=== PATIENT | female | born 1985 | race Caucasian/White ===

== ENCOUNTER 2021-03-09 10:04 | Emergency (ER) | payer BC ==
[2021-03-09 10:10] VITALS: TEMP 98.7
[2021-03-09] MEDS ORDERED: KETOROLAC 15 MG/ML 1 ML VIAL IM STA (10:26)
--- NOTE | 2021-03-09 10:28 | ED ---
Lower Extremity Injury HPI - General Chief Complaint: Extremity Injury, Lower Stated Complaint: lt knee injury Time Seen by Provider: 03/09/21 10:16 Source: patient Mode of arrival: ambulatory Limitations: no limitations - History of Present Illness Initial Comments: 15-year-old female presents to emergency Department with a chief complaint of any pain. Patient reports she does have history of bilateral knee arthritis and meniscal injury to right knee. However, yesterday she was walking she felt sudden onset of a "pop" followed by pain in the left knee. States mostly the pain is located in the left infrapatellar region without any associated paresthesias. States she has full range of motion in the knee, any movement seems to be exacerbated in the pain along with weightbearing. States the pain is sharp 04/09. - Related Data Allergies Allergy/AdvReac Type Severity Reaction Status Date / Time No Known Allergies Allergy Verified 03/09/21 10:07 Review of Systems ROS Statement: Those systems with pertinent positive or pertinent negative responses have been documented in the HPI. ROS Other: All systems not noted in ROS Statement are negative. Past Medical History Past Medical History: No Reported History History of Any Multi-Drug Resistant Organisms: None Reported Past Surgical History: Cholecystectomy Additional Past Surgical History / Comment(s): right knee Past Psychological History: No Psychological Hx Reported Smoking Status: Never smoker Past Alcohol Use History: None Reported Past Drug Use History: None Reported General Exam Limitations: no limitations General appearance: alert, in no apparent distress, obese Head exam: Present: atraumatic, normocephalic, normal inspection Eye exam: Present: normal appearance, PERRL, EOMI Pupils: Present: normal accommodation ENT exam: Present: normal exam, normal oropharynx, mucous membranes moist. Absent: TM's normal bilaterally Neck exam: Present: normal inspection, full ROM Respiratory exam: Present: normal lung sounds bilaterally. Absent: respiratory distress Cardiovascular Exam: Present: regular rate, normal rhythm, normal heart sounds. Absent: systolic murmur Extremities exam: Present: normal inspection, tenderness (Left infrapatellar tenderness), normal capillary refill, other (Palpable DP and PT bilaterally. Sensation intact in the left lower extremity.). Absent: full ROM (I range of motion with full flexion), pedal edema, joint swelling, calf tenderness Back exam: Present: normal inspection, full ROM. Absent: tenderness Neurological exam: Present: alert, oriented X3 Psychiatric exam: Present: normal affect, normal mood Skin exam: Present: warm, dry, intact, normal color Course Vital Signs 03/09/21 10:07 Temperature 98.7 F Pulse Rate 87 Respiratory 16 Rate Blood Pressure 129/82 O2 Sat by Pulse 96 Oximetry Medical Decision Making - Medical Decision Making 15-year-old female presents to emergency Department with a chief complaint of an y pain. On physical examination, patient is neurovascularly intact. Infrapatellar tenderness. X-ray shows a small effusion with spurring noted. A knee immobilizer will be applied. Toradol for the pain. I suspect ligamentous injury. Patient will be advised to follow with mechanical technical service specialist. Case discussed with Dr. Poole. Disposition Clinical Impression: Left knee pain, Swelling of left knee joint Disposition: HOME SELF-CARE Condition: Stable Instructions (If sedation given, give patient instructions): Knee Pain (ED) Additional Instructions: Follow with mechanical technical service specialist. Return to emergency department if symptoms worsen. Is patient prescribed a controlled substance at d/c from ED?: No Referrals: Michael Patton MD [Primary Care Provider] - 1-2 days Jono Noguera DO [Doctor of Osteopathic Medicine] - 1-2 days Time of Disposition: 11:08
--- NOTE | 2021-03-09 10:55 | XR ---
EXAMINATION TYPE: XR knee complete LT DATE OF EXAM: 03/09/2021 COMPARISON: NONE HISTORY: 35-year-old female felt knee pop while walking yesterday TECHNIQUE: 3 radiographs of the left knee FINDINGS AND IMPRESSION: No acute osseous or articular abnormality. Small knee joint effusion. Marginal bony spurs lateral femoral condyle.
[2021-03-09] MEDS ORDERED: ACET/COD 300 MG/30 MG STARTER PACK 6 TAB BTL PO STA (11:18)
[2021-03-09 11:50] VITALS: BP 142/85; PULSE 75; RESP 18
== END 2021-03-09 11:53 | disposition home or self-care (01) ==
LOC: SUPCPDRO 10:04 → EC 10:04
DX: M25.462 Effusion, left knee (principal)
CPT/HCPCS: 73562; 99283; 96372; J1885

== ENCOUNTER → 2021-03-09 | Outpatient (CLI) | payer BC | END | disposition home or self-care (01) | DX: M17.11 Unilateral primary osteoarthritis, right knee (principal) ==

== ENCOUNTER → 2021-09-18 | Outpatient (CLI) | payer BC ==
[2021-09-18 11:41] VITALS: BMI 48.7
== END ==
LOC: DBWHC3 10:59
PROVIDERS: ATTEND Internal Medicine
DX: Z71.3 Dietary counseling and surveillance (principal); G89.29 Other chronic pain; M17.11 Unilateral primary osteoarthritis, right knee; F90.2 Attention-deficit hyperactivity disorder, combined type; F32.A Depression, unspecified; Z68.42 Body mass index [BMI] 45.0-49.9, adult
CPT/HCPCS: 97802

== ENCOUNTER 2021-10-17 12:48 | Emergency (ER) | payer BC ==
--- NOTE | 2021-10-17 12:57 | ED ---
General Adult HPI - General Stated complaint: fall, left ankle pain Time Seen by Provider: 10/17/21 12:51 Source: patient, EMS, RN notes reviewed, old records reviewed Mode of arrival: EMS Limitations: no limitations - History of Present Illness Initial comments: 36-year-old female presents for evaluation of left ankle injury and possible left knee injury. Patient was attending her back porch, slipped on the ice and fell injuring her left ankle and left knee. No head or neck injury. No anticoagulation. Patient was transported by paramedics, given fentanyl during transport. - Related Data Home Medications Medication Instructions Recorded Confirmed Celecoxib [CeleBREX] 100 mg PO BID PRN 10/17/21 10/17/21 Dextroamphetamine/Amphetamine 10 mg PO DAILY 10/17/21 10/17/21 [Adderall Xr] Saxenda 18mg/3ml 0.6 mg SQ DAILY 10/17/21 10/17/21 Previous Rx's Medication Instructions Recorded Ibuprofen [Motrin] 600 mg PO Q8HR PRN #24 tab 10/17/21 Allergies Allergy/AdvReac Type Severity Reaction Status Date / Time No Known Allergies Allergy Verified 10/17/21 14:11 Review of Systems ROS Statement: Those systems with pertinent positive or pertinent negative responses have been documented in the HPI. ROS Other: All systems not noted in ROS Statement are negative. Past Medical History Past Medical History: Osteoarthritis (OA) History of Any Multi-Drug Resistant Organisms: None Reported Past Surgical History: Cholecystectomy, Orthopedic Surgery Additional Past Surgical History / Comment(s): right knee Past Psychological History: ADD/ADHD Smoking Status: Never smoker Past Alcohol Use History: Occasional Past Drug Use History: None Reported General Exam Limitations: physical limitation General appearance: alert, in no apparent distress Head exam: Present: atraumatic, normocephalic Eye exam: Present: normal appearance, PERRL ENT exam: Present: normal exam Neck exam: Present: normal inspection. Absent: tenderness, meningismus Respiratory exam: Present: normal lung sounds bilaterally. Absent: respiratory distress, wheezes Cardiovascular Exam: Present: regular rate, normal rhythm GI/Abdominal exam: Present: soft. Absent: distended, tenderness, guarding Extremities exam: Present: joint swelling (Ankle swelling, splint applied by paramedics prehospital. Distal pulses intact, normal sensation. No gross deformity) Neurological exam: Present: alert, oriented X3 Psychiatric exam: Present: normal affect, normal mood Skin exam: Present: warm, dry, intact. Absent: cyanosis, diaphoretic Course Vital Signs 10/17/21 10/17/21 12:50 13:49 Temperature 97.7 F Pulse Rate 80 79 Respiratory 18 16 Rate Blood Pressure 166/100 152/78 O2 Sat by Pulse 99 99 Oximetry Procedures - Orthopedic Splinting/Casting Injury #1 Side: left Lower Extremity Injury Location: ankle Lower Extremity Immobilizer: stirrup splint Other Orthopedic Equipment: crutches Medical Decision Making - Medical Decision Making X-rays performed of the left knee and left ankle status post fall. There is no acute bony abdomen, no displaced fracture seen. I do suspect a ligamentous injury in the ankle. Patient is placed in a splint and given orthopedic follow- up. Disposition Clinical Impression: Ankle sprain Disposition: HOME SELF-CARE Condition: Fair Instructions (If sedation given, give patient instructions): Ankle Sprain (ED) Prescriptions: Ibuprofen [Motrin] 600 mg PO Q8HR PRN #24 tab PRN Reason: Pain Is patient prescribed a controlled substance at d/c from ED?: No Referrals: Michael Patton MD [Primary Care Provider] - 1-2 days Julio César Davila MD [Medical Doctor] - 1-2 days Time of Disposition: 14:56
--- NOTE | 2021-10-17 13:31 | XR ---
EXAMINATION TYPE: XR knee complete 3 views LT, XR ankle complete 3 views LT DATE OF EXAM: 10/17/2021 COMPARISON: 03/09/2021 knee HISTORY: 36-year-old female with pain after slip and fall FINDINGS: Left knee: There is tricompartmental degenerative spurring. Trace knee joint effusion in the suprapatellar pouch . Extensor mechanism appears intact. No acute fracture, subluxation, or dislocation seen. Left ankle: There is loss of the distal tibiofibular overlap. Anterior soft tissue swelling suggested. Limited du e to external artifacts from crosstable positioning. No acute fracture otherwise identified. IMPRESSION: 1. Left knee: At least mild tricompartmental osteoarthrosis. Trace knee joint effusion is nonspecific and probably reactive. No acute osseous abnormality seen. 2. Left ankle: Limited by crosstable technique and external artifacts. However, there is loss of the distal tibiofibular overlap suggesting syndesmotic injury/high ankle sprain. No acute fracture seen. If there is medial pain as well, consider a medial stress view to exclude any widening of the medial clear space and injury to the deltoid ligament.
[2021-10-17 15:24] VITALS: BP 152/84; PULSE 80; RESP 18; TEMP 97.8
== END 2021-10-17 15:23 | disposition home or self-care (01) ==
LOC: EC 12:48
DX: S93.402A Sprain of unspecified ligament of left ankle, initial encounter (principal); M19.90 Unspecified osteoarthritis, unspecified site; F90.9 Attention-deficit hyperactivity disorder, unspecified type; Z90.49 Acquired absence of other specified parts of digestive tract; W00.0XXA Fall on same level due to ice and snow, initial encounter
CPT/HCPCS: 29515; 99283

== ENCOUNTER 2021-11-22 12:13 | Day surgery (SDC) | payer BC ==
[2021-11-19 15:51] VITALS: BMI 41.3
[~2021-11-22 12:13] MED LIST: DEXAMETHASONE SOD PHOSPHATE 4 MG/ML 1 ML VIAL IV ONE; LACTATED RINGERS 1,000 ML IV SCH; LIDOCAINE 1% (10MG/ML) FOR IV START INTRADERMA PRN; MIDAZOLAM 2 MG/2 ML VIAL IV PRN; ONDANSETRON 4 MG/2 ML VIAL IVP ONE; Pre Op ABX Message 1 EACH MISC MISCELLANE ONE
[2021-11-22] MEDS ORDERED: MIDAZOLAM 2 MG/2 ML VIAL IVP ONE (13:34)
[2021-11-22] MEDS ORDERED: fentaNYL (PF) 50 MCG/ML 2 ML AMP IVP ONE (13:34)
--- NOTE | 2021-11-22 14:07 | P.ANPRN ---
Procedure Note - Anesthesia - Nerve Block Performed Left Adductor Canal Single Time Out Performed: Yes (1333) Date of Procedure: 11/22/21 Procedure Start Time: 13:33 Procedure Stop Time: 13:41 Location of Patient: PreOp Indication: Acute Post-Operative Pain, Analgesia, Dx/Pain Location (Left ankle), Requested by Surgeon Specifically requested for management of pain by DrWil: Derrick Long Sedation Type: Sedate with meaningful contact maintained Preparation: Sterile Prep Position: Supine Catheter: None Needle Types: Pajunk Needle Gauge: 21 (100 mm) Ultrasound used to visualize needle placement: Yes Ultrasound used to observe medication spread: Yes Injectate: 0.5% Ropivacaine (see comment for volume) (20 cc + 2mg of decadron) Blood Aspirated: No Pain Paresthesia on Injection Noted: No Resistance on Injection: Normal Image Stored and Saved: Yes Events: Uneventful and Well Tolerated Left Popliteal Single Time Out Performed: Yes Date of Procedure: 11/22/21 Procedure Start Time: 13:42 Procedure Stop Time: 13:51 Location of Patient: PreOp Indication: Requested by Surgeon Specifically requested for management of pain by DrWil: Derrick Long Sedation Type: Sedate with meaningful contact maintained Preparation: Sterile Prep Position: Right Lateral Catheter: None Needle Types: Pajunk Needle Gauge: 21 (100 mm) Ultrasound used to visualize needle placement: Yes Ultrasound used to observe medication spread: Yes Injectate: 0.5% Ropivacaine (see comment for volume) (20cc + decadron 2 mg) Blood Aspirated: No Pain Paresthesia on Injection Noted: No Resistance on Injection: Normal Image Stored and Saved: Yes Events: Uneventful and Well Tolerated
[2021-11-22] MEDS ORDERED: PROPOFOL 10 MG/ML 20 ML VIAL IV ONE (14:30)
[2021-11-22] MEDS ORDERED: DEXAMETHASONE SOD PHOSPHATE 4 MG/ML 1 ML VIAL ONE (14:30)
[2021-11-22] MEDS ORDERED: fentaNYL (PF) 50 MCG/ML 2 ML AMP ONE (14:30)
[2021-11-22] MEDS ORDERED: ROPIVACAINE 5 MG/ML 30 ML VIAL ONE (14:30)
[2021-11-22] MEDS ORDERED: LIDOCAINE 1% INJ 10MG/ML (20 ML MDV) ONE (14:30)
[2021-11-22] MEDS ORDERED: SUCCINYLCHOLINE CHLORIDE VIAL 200 MG/10 ML VIAL IV ONE (14:30)
[2021-11-22] MEDS ORDERED: SODIUM CHLORIDE 0.9% 100 ML with ceFAZolin 3,000 MG IV ONE ×2 (14:34)
[2021-11-22 16:27] VITALS: TEMP 97.4
[2021-11-22] MEDS: HYDROmorphone 0.5 MG/0.5 ML SYRINGE IVP PRN ×3 (16:29→17:03)
[2021-11-22] MEDS ORDERED: ONDANSETRON 4 MG/2 ML VIAL IVP ONE (16:33)
--- NOTE | 2021-11-22 16:38 | P.OP ---
Date of Procedure: 11/22/21 Preoperative Diagnosis: 1. Sprain of anterior talofibular ligament left ankle 2. Ruptured syndesmosis left ankle Postoperative Diagnosis: 1. Same 2. Same Procedure(s) Performed: 1. Secondary repair of left lateral ankle ligaments 2. Open repair syndesmosis left ankle Implants: Arthrex internal brace 2 Arthrex fiber Kenny anchors 2 Arthrex tight rope anchor 2 Arthrex 2 hole titanium plate Anesthesia: GETA Surgeon: Derrick oLng Estimated Blood Loss (ml): 10 Pathology: none sent Condition: stable Disposition: PACU Description of Procedure: Prior to the patient being brought to the operating room, anesthesia administered a nerve block on the affected extremity, utilizing ultrasonic guidance and mild sedation. Once completed the patient was taken to the operating room and placed on table supine position. Timeout was taken to confirm correct patient identifiers, correct procedure, and correct site of surgery. When all staff in the room were in agreement with the timeout, the patient was induced and placed under general anesthesia. A bump was placed underneath the hip to internally rotate the affected leg. A well-padded tourniquet was placed on the midcalf and then the affected extremity prepped and draped in usual manner. The leg was exsanguinated and the tourniquet inflated to 250 mmHg. Attention was directed over the lateral ankle where a curved incision was made just anterior to the lateral malleolus. The incision was deepened down to the subcutaneous tissue careful to identify, avoid, and retract any neurovascular structures and cauterize any bleeding vessels. Blunt dissection was continued down to level of the lateral ankle joint capsule and ligamentous structures. The soft tissue structures were sharply incised off the anterior surface the lateral malleolus and reflected anteriorly. A ronguer was used to remove the cortical bone off the anterior surface the lateral malleolus which would help facilitate tissue re-adhesion upon repair. With the ankle at 90 and in neutral inversion and eversion, the capsule was palpated on the lateral surface of the talus anterior to the articular surface. A small stab incision was made in the area of the talar body avoiding both the ankle and subtalar joints and near the junction of the neck. A drill hole was then placed utilizing a 3.4 mm drill bit into the talar body avoiding both the ankle and subtalar joints. The hole was then tapped and then the 4.75 mm swivel lock anchor was inserted and impacted and then advanced to proper depth. The same drill bit was used to create the hole for the 3.5 mm anchor in the lateral malleolus. Drill holes for the Arthrex fiber Clem anchors were made one inferior and one superior to the 3.4 mm drill hole in the lateral malleolus. With the drill guides for the anchor still in place, the anchors were inserted into the lateral malleolus and impacted to proper depth. The kelly machine operator and guide were removed and then tension placed on the suture to lock anchors in place. Once both anchors were in place the wound was thoroughly irrigated with antibiotic saline. The suture on the fiber Kenny anchors was then used to capture the distal ligamentous and capsular structures on the talus and then with the ankle in maximum dorsiflexion and eversion, the suture was tied repairing the ligament. The 2 arms of the internal brace suture were then passed through the 3.5 mm anchor which was then aligned with the drill hole lateral malleolus. Utilizing described tensioning techniques, the anchor and suture were inserted into the drill hole and then the anchor advanced to lock the suture in place. At that time the ankle was tested for stability where anterior drawer and inversion stress were both negative. The wound was again irrigated with antibiotic saline. The fiber Kenny suture was used to sew the retinaculum over the lateral malleolus along with the periosteal flap in a pants over vest fashion. Then attention was directed more proximal along the fibula for the repair of the anterior inferior tibial-fibular ligament as well as placement of the tight rope anchors for the syndesmotic injury. Blunt subcutaneous dissection was done to expose the anterior surface of the tibia for the placement of the anchor. Under fluoroscopic visualization a location for the anchor placement was marked and then the drill hole made in the tibia. The hole was tapped and the 4.75 anchor with associated suture was inserted into the drill hole to the appropriate depth. Then a metallic marker was used to kieran the area where the 3.5 mm anchor was to be inserted in the lateral malleolus. Once the appropriate position was found the drill hole was made for the anchor. Utilizing appropriate tensioning techniques and having the ankle at 90 the suture on the 4.75 anchor was fed through the 3.5 anchor and then placed in the drill hole in the lateral malleolus. The anchor was advanced locking the suture in place. Slightly proximal to that area and on the lateral malleolus and incision was made through the soft tissue to expose the lateral malleolus. A 2 hole plate was then placed on the lateral surface of the malleolus and there was adjusted for positioning under fluoroscopy. Once position was acceptable the proximal hole the plate was then Fixated with a threaded olive wire. Then a drill hole was made for the tight rope anchor from lateral to medial and slight posterior angulation confirmed under fluoroscopy. The tight rope anchor was inserted until the button was clear of the medial cortex of the tibia. The button was then deployed and then the repeat kelly machine operator retracted. Then with the ankle in 90 dorsiflexion the lateral button was then tied down to the plate as tight as possible. The temporary fixation was removed and then another drill hole for second tight rope was made from lateral to medial only this time with slight anterior angulation to create a divergent triangle of tight ropes. Once the drill holes completed the tight rope kelly machine operator was placed until the button was clear of the heel tibia. The button was deployed and then laid flat against the medial side of the tibia. The kelly machine operator was removed and then the suture tightened until the lateral button contacted the plate and was tight. Again while doing this the ankle was held at 90 dorsiflexion. Under live fluoroscopy the ankle was stressed and there was no abnormal gapping of the syndesmosis or widening of the medial joint gutter. The wound is thoroughly irrigated with antibiotic saline. Subcutaneous closure was done with 4-0 Monocryl. Skin closure done with stainless adrien. X jumpstart dressing was placed over the incision and covered with a bulky dry dressing. The tourniquet was released and capillary refill return to all digits on the left foot. The patient was then placed in a well-padded, well molded Mi posterior mold/sugar tong splint. Ankle was held in neutral position until the splint was dried. Patient tolerated above procedure and anesthesia well and left operating room to recovery with vital signs stable
--- NOTE | 2021-11-22 16:48 | XR ---
EXAMINATION TYPE: XR ankle limited LT DATE OF EXAM: 11/22/2021 4:23 PM INDICATION: Patient age:Female; 36 years old; Reason for study: Secondary Repair Lateral Ankle Ligaments; [facility]. COMPARISON: None Intraoperative fluoroscopic services were provided for left ankle. Total fluoroscopy time is 41.1 sec onds with a total of 1 submitted images to PACS. Please see the operative note for further details.
[2021-11-22 17:03] VITALS: RESP 16
[2021-11-22 18:23] VITALS: BP 128/79; PULSE 85
--- NOTE | 2021-11-24 20:34 | FL ---
Fluoroscopy INDICATION: Pain FINDINGS: Fluoroscopy time: 41 seconds. Images obtained: 0. IMPRESSIONS: 1. Documentation of fluoroscopy.
== END 2021-11-22 18:29 | disposition home or self-care (01) ==
LOC: OR 12:13
PROVIDERS: ATTEND Podiatrist
DX: S93.492A Sprain of other ligament of left ankle, initial encounter (principal); S93.432A Sprain of tibiofibular ligament of left ankle, initial encounter; G89.18 Other acute postprocedural pain; X58.XXXA Exposure to other specified factors, initial encounter
CPT/HCPCS: 27698; 27829; 64447; 64445; 76942; 73600; C1713 ×4; J2250; J0330; J1100; J2405; J0690; J2001; J3010; J2795; J2704; J1170

== ENCOUNTER 2022-08-18 16:58 | Emergency (ER) | payer BC ==
[2022-08-18 17:10] VITALS: TEMP 97.8
[2022-08-18] MEDS ORDERED: predniSONE 20 MG TAB PO STA (18:32)
[2022-08-18] MEDS ORDERED: diphenhydrAMINE 50 MG CAP PO STA (18:32)
[2022-08-18 18:52] VITALS: RESP 18
[2022-08-18 20:12] VITALS: BP 141/95; PULSE 72
--- NOTE | 2022-08-18 20:24 | ED ---
General Adult HPI - General Chief complaint: Allergic Reaction Stated complaint: allergic reaction,throat swelling Time Seen by Provider: 08/18/22 17:57 Source: patient Mode of arrival: ambulatory Limitations: no limitations - History of Present Illness Initial comments: This is a 37-year-old female with a past medical history including PCOS, anxiety, depression and ADHD presents emergency department for a possible ALLERGIC reaction. The patient was diagnosed with COVID-19 on Thursday and was given Paxlovid. The patient stated that she had been taken this medication for last 3 days but stated that all of a sudden today she started to feel that her throat had a "lump" in it and she had change in voice. The patient denied any shortness of breath or difficulty in breathing however. The patient stated that because of this she came to the emergency department for further evaluation and management. The patient stated that she did not have any known ALLERGIES and had not been taking any of her other medications that she is prescribed while on the Paxlovid. The patient continued to remain stable in bed on my evaluation however and denied any nausea, vomiting as well as any fevers and chills. - Related Data Home Medications Medication Instructions Recorded Confirmed Celecoxib [CeleBREX] 100 mg PO BID PRN 10/17/21 11/22/21 Dextroamphetamine/Amphetamine 15 mg PO DAILY 11/19/21 11/22/21 [Adderall] Previous Rx's Medication Instructions Recorded HYDROcodone/APAP 7.5-325MG [Wallace 1 tab PO Q4-6H PRN #30 tab 11/22/21 7.5-325] predniSONE [Deltasone] 40 mg PO DAILY #8 tab 08/18/22 Allergies Allergy/AdvReac Type Severity Reaction Status Date / Time No Known Allergies Allergy Verified 11/22/21 12:52 Review of Systems ROS Statement: Those systems with pertinent positive or pertinent negative responses have been documented in the HPI. ROS Other: All systems not noted in ROS Statement are negative. Past Medical History Past Medical History: Osteoarthritis (OA) Additional Past Medical History / Comment(s): INJURY TO LT ANKLE 10/17/21 History of Any Multi-Drug Resistant Organisms: None Reported Past Surgical History: Cholecystectomy, Orthopedic Surgery Additional Past Surgical History / Comment(s): right knee SX, Past Anesthesia/Blood Transfusion Reactions: No Reported Reaction Past Psychological History: ADD/ADHD Smoking Status: Never smoker Past Alcohol Use History: Occasional Past Drug Use History: None Reported - Past Family History Mother Family Medical History: No Reported History General Exam Limitations: no limitations General appearance: alert, in no apparent distress Head exam: Present: atraumatic, normocephalic Eye exam: Present: normal appearance, PERRL Pupils: Present: normal accommodation ENT exam: Present: normal exam, normal oropharynx, mucous membranes moist Neck exam: Present: normal inspection, full ROM Respiratory exam: Present: normal lung sounds bilaterally Cardiovascular Exam: Present: regular rate, normal rhythm, normal heart sounds GI/Abdominal exam: Present: soft, normal bowel sounds Extremities exam: Present: normal inspection, full ROM Back exam: Present: normal inspection, full ROM Neurological exam: Present: alert, oriented X3, CN II-XII intact Psychiatric exam: Present: normal affect, normal mood Skin exam: Present: warm, dry Course Vital Signs 08/18/22 08/18/22 08/18/22 17:05 18:49 20:00 Temperature 97.8 F Pulse Rate 79 68 72 Respiratory 20 18 18 Rate Blood Pressure 202/111 147/93 141/95 O2 Sat by Pulse 99 95 96 Oximetry Medical Decision Making - Medical Decision Making The patient was seen and evaluated in emergency department. Physical exam, the patient was resting in bed without any acute distress. Vital signs admission were stable and within normal limits. The patient on evaluation denied of any swelling noted to the posterior pharynx denied any shortness of breath noted. The patient did not require any intramuscular epinephrine at this time. The patient however due to the loss of her voice in the setting of feeling of a sensation of a lump in the back of her throat, the patient was given Benadryl as well as prednisone. The patient remained stable and was monitored and observed for several hours and on reevaluation stated that she had complete improvement of her symptoms and had return of her normal voice. The patient likely had an ALLERGIC reaction to the Paxlovid and was advised to stop this medication. The patient was also given a prescription for prednisone to be taken at home for the next 4 days. The patient was also advised to use [id number] Benadryl in addition to this. The patient was given strict instructions for return including any worsening shortness of breath or difficulty in breathing. The patient and her were agreeable to this and all other questions were answered appropriately. The patient was discharged home in stable condition. Disposition Clinical Impression: Allergic reaction Disposition: HOME SELF-CARE Condition: Stable Instructions (If sedation given, give patient instructions): General Allergic Reaction (ED) Prescriptions: predniSONE [Deltasone] 40 mg PO DAILY #8 tab Is patient prescribed a controlled substance at d/c from ED?: No Referrals: Michael Patton MD [Primary Care Provider] - 1-2 days Time of Disposition: 20:20
== END 2022-08-18 20:40 | disposition home or self-care (01) ==
LOC: EC 16:58
DX: T78.40XA Allergy, unspecified, initial encounter (principal); F90.9 Attention-deficit hyperactivity disorder, unspecified type; Z90.89 Acquired absence of other organs; Z79.899 Other long term (current) drug therapy
CPT/HCPCS: 99283; J7512

== ENCOUNTER 2023-02-12 13:32 | Emergency (ER) | payer BC ==
[2023-02-12] MEDS ORDERED: ORPHENADRINE 30 MG/ML 2 ML VIAL IM STA (15:47)
[2023-02-12] MEDS ORDERED: SODIUM CHLORIDE 0.9% 500 ML 500 ML IV STA (15:47)
[2023-02-12] MEDS ORDERED: predniSONE 20 MG TAB PO STA (15:47)
--- NOTE | 2023-02-12 15:53 | ED ---
General Adult HPI - General Chief complaint: Back Pain/Injury Stated complaint: Abd Pain/Leg Pain Time Seen by Provider: 02/12/23 14:20 Source: patient Mode of arrival: ambulatory Limitations: no limitations - History of Present Illness Initial comments: This patient is a 37-year-old woman who presents with complaint of pain to the right lumbar back radiating down her leg that she woke up with this morning. The pain is worse with sitting and walking. She denies weakness. She denies change in bladder or bowel function. No saddle anesthesia. The patient states she also has a crampy right lower quadrant pain that is been going on today. She does note that she has recently been taking fertility treatments. Patient denying symptoms of . -: days(s) Location: abdomen, right, lower extremity Radiation: extremity Quality: burning, aching Consistency: constant Improves with: none Worsens with: other (Sitting position or walking) Associated Symptoms: other (There is crampy right lower quadrant pain) Treatments Prior to Arrival: none - Related Data Home Medications Medication Instructions Recorded Confirmed Celecoxib [CeleBREX] 100 mg PO BID PRN 10/17/21 11/22/21 Dextroamphetamine/Amphetamine 15 mg PO DAILY 11/19/21 11/22/21 [Adderall] Previous Rx's Medication Instructions Recorded HYDROcodone/APAP 7.5-325MG [[place] 1 tab PO Q4-6H PRN #30 tab 11/22/21 7.5-325] predniSONE [Deltasone] 40 mg PO DAILY #8 tab 08/18/22 methocarbamoL [Robaxin-750] 750 mg PO QID #28 tab 02/12/23 predniSONE 60 mg PO DAILY #30 tab 02/12/23 Allergies Allergy/AdvReac Type Severity Reaction Status Date / Time nirmatrelvir Allergy Anaphylaxis Verified 02/12/23 23:50 [From Paxlovid (EUA)] ritonavir Allergy Anaphylaxis Verified 02/12/23 23:50 [From Paxlovid (EUA)] Review of Systems ROS Statement: Those systems with pertinent positive or pertinent negative responses have been documented in the HPI. ROS Other: All systems not noted in ROS Statement are negative. Constitutional: Denies: fever, chills, weakness Respiratory: Denies: cough, dyspnea Cardiovascular: Denies: chest pain, palpitations Gastrointestinal: Reports: as per HPI, abdominal pain. Denies: nausea, vomiting, diarrhea, constipation, melena, hematochezia Genitourinary: Denies: dysuria, hematuria Musculoskeletal: Reports: as per HPI, back pain Skin: Denies: rash Neurological: Denies: headache, weakness, numbness Past Medical History Past Medical History: Osteoarthritis (OA) Additional Past Medical History / Comment(s): INJURY TO LT ANKLE 10/17/21 History of Any Multi-Drug Resistant Organisms: None Reported Past Surgical History: Cholecystectomy, Orthopedic Surgery Additional Past Surgical History / Comment(s): right knee SX, Past Anesthesia/Blood Transfusion Reactions: No Reported Reaction Past Psychological History: ADD/ADHD Smoking Status: Never smoker Past Alcohol Use History: Occasional Past Drug Use History: None Reported - Past Family History Mother Family Medical History: No Reported History General Exam Limitations: no limitations General appearance: alert, in no apparent distress Head exam: Present: atraumatic, normocephalic Eye exam: Present: normal appearance. Absent: scleral icterus, conjunctival injection Neck exam: Present: normal inspection Respiratory exam: Present: normal lung sounds bilaterally. Absent: respiratory distress, wheezes, rales, rhonchi, stridor Cardiovascular Exam: Present: regular rate, normal rhythm, normal heart sounds. Absent: systolic murmur, diastolic murmur, rubs, gallop GI/Abdominal exam: Present: soft, tenderness. Absent: distended, guarding, rebound, rigid, mass, pulsatile mass, hernia Extremities exam: Present: normal inspection, normal capillary refill. Absent: pedal edema, calf tenderness Back exam: Present: normal inspection, full ROM, other (There is positive straight leg raise on the right). Absent: tenderness, CVA tenderness (R), CVA tenderness (L), paraspinal tenderness, vertebral tenderness Neurological exam: Present: alert, reflexes normal. Absent: motor sensory deficit Skin exam: Present: warm, dry, intact, normal color. Absent: rash Course Vital Signs 02/12/23 02/12/23 13:41 17:38 Temperature 98.1 F 98 F Pulse Rate 115 H 97 Respiratory 20 16 Rate Blood Pressure 160/85 140/79 O2 Sat by Pulse 99 99 Oximetry Medical Decision Making - Medical Decision Making Was pt. sent in by a medical professional or institution (, PA, BRAID FOLDER, urgent care, hospital, or [facility]...) When possible be specific @ -[No] Did you speak to anyone other than the patient for history (EMS, parent, family, police, friend...)? What history was obtained from this source @ -[No] Did you review nursing and triage notes (agree or disagree)? Why? @ -[I reviewed and agree with nursing and triage notes] Were old charts reviewed (outside hosp., previous admission, EMS record, old EKG, old radiological studies, urgent care reports/EKG's, [facility] records)? Report findings @ -[No old charts were reviewed] Differential Diagnosis (chest pain, altered mental status, abdominal pain women, abdominal pain men, vaginal bleeding, weakness, fever, dyspnea, syncope, headache, dizziness, GI bleed, back pain, seizure, CVA, palpatations, mental health, musculoskeletal)? @ -[Differential Back Pain: Strain, zoster, cauda equina syndrome, epidural abscess, vertebral osteomyelitis, discitis, fracture, subluxation, disc herniation, DJD, spinal stenosis, dissection, AAA, pancreatitis, peptic ulcer disease, pyelonephritis, kidney stone, this is not meant to be an all-inclusive list. EKG interpreted by me (3pts min.). @ -[ X-rays interpreted by me (1pt min.). @ -[None done] CT interpreted by me (1pt min.). @ -[None done] U/S interpreted by me (1pt. min.). @ -[None done] What testing was considered but not performed or refused? (CT, X-rays, U/S, labs)? Why? @ -[None] What meds were considered but not given or refused? Why? @ -[None] Did you discuss the management of the patient with other professionals (professionals i.e. , PA, BRAID FOLDER, lab, RT, psych nurse, social work specialist, nuclear plant technical advisor, teacher, global chief experience officer, director case)? Give summary @ -[No] Was smoking cessation discussed for >3mins.? @ -[No] Was critical care preformed (if so, how long)? @ -[No] Were there social determinants of health that impacted care today? How? (Homelessness, low income, unemployed, alcoholism, drug addiction, transportation, low edu. Level, literacy, decrease access to med. care, long-term, rehab)? @ -[No] Was there de-escalation of care discussed even if they declined (Discuss DNR or withdrawal of care, Hospice)? DNR status @ -[No] What co-morbidities impacted this encounter? (DM, HTN, Smoking, COPD, CAD, Cancer, CVA, ARF, Chemo, Hep., AIDS, mental health diagnosis, sleep apnea, morbid obesity)? @ -[None] Was patient admitted / discharged? Hospital course, mention meds given and route, prescriptions, significant lab abnormalities, going to OR and other pertinent info. @ -[Discharged Undiagnosed new problem with uncertain prognosis? @ -[No] Drug Therapy requiring intensive monitoring for toxicity (Heparin, Nitro, Insulin, Cardizem)? @ -[No] Were any procedures done? @ -[No] Diagnosis/symptom? @ -[Acute lumbar radiculopathy, uncomplicated Acute, or Chronic, or Acute on Chronic? @ -[default] Uncomplicated (without systemic symptoms) or Complicated (systemic symptoms)? @ -[default] Side effects of treatment? @ -[No] Exacerbation, Progression, or Severe Exacerbation? @ -[No] Poses a threat to life or bodily function? How? (Chest pain, [place], [place], pneumonia, PE, COPD, DKA, ARF, appy, cholecystitis, CVA, Diverticulitis, Homicidal, Suicidal, threat to staff... and all critical care pts) @ -[No] - Lab Data Result diagrams: 02/12/23 15:59 02/12/23 15:59 Lab Results 02/12/23 02/12/23 02/12/23 Range/Units 15:59 15:59 15:59 WBC (3.8-10.6) k/uL RBC (3.80-5.40) m/uL Hgb (11.4-16.0) gm/dL Hct (34.0-46.0) % MCV (80.0-100.0) fL MCH (25.0-35.0) pg MCHC (31.0-37.0) g/dL RDW (11.5-15.5) % Plt Count (150-450) k/uL MPV Neutrophils % % Lymphocytes % % Monocytes % % Eosinophils % % Basophils % % Neutrophils # (1.3-7.7) k/uL Lymphocytes # (1.0-4.8) k/uL Monocytes # (0-1.0) k/uL Eosinophils # (0-0.7) k/uL Basophils # (0-0.2) k/uL Sodium 137 (137-145) mmol/L Potassium 4.3 (3.5-5.1) mmol/L Chloride 103 (98-107) mmol/L Carbon Dioxide 29 (22-30) mmol/L Anion Gap 5 mmol/L BUN 12 (7-17) mg/dL Creatinine 0.59 (0.52-1.04) mg/dL Est GFR (CKD-EPI)AfAm >90 (>60 ml/min/1.73 sqM) Est GFR (CKD-EPI)NonAf >90 (>60 ml/min/1.73 sqM) Glucose 88 (74-99) mg/dL Calcium 8.7 (8.4-10.2) mg/dL Total Bilirubin 0.4 (0.2-1.3) mg/dL AST 31 (14-36) U/L ALT 39 H (4-34) U/L Alkaline Phosphatase 87 (38-126) U/L C-Reactive Protein 1.7 H (<1.0) mg/dL Total Protein 7.1 (6.3-8.2) g/dL Albumin 3.9 (3.5-5.0) g/dL Urine Color Colorless Urine Appearance Clear (Clear) Urine pH 7.5 (5.0-8.0) Ur Specific [place] 1.006 (1.001-1.035) Urine Protein Negative (Negative) Urine Glucose (UA) Negative (Negative) Urine Ketones Negative (Negative) Urine Blood Negative (Negative) Urine Nitrite Negative (Negative) Urine Bilirubin Negative (Negative) Urine Urobilinogen <2.0 (<2.0) mg/dL Ur Leukocyte Esterase Negative (Negative) Urine HCG, Qual Not Detected (Not Detectd) 02/12/23 Range/Units 15:59 WBC 10.5 (3.8-10.6) k/uL RBC 4.37 (3.80-5.40) m/uL Hgb 13.2 (11.4-16.0) gm/dL Hct 40.2 (34.0-46.0) % MCV 91.9 (80.0-100.0) fL MCH 30.1 (25.0-35.0) pg MCHC 32.8 (31.0-37.0) g/dL RDW 13.7 (11.5-15.5) % Plt Count 305 (150-450) k/uL MPV 6.7 Neutrophils % 58 % Lymphocytes % 33 % Monocytes % 5 % Eosinophils % 1 % Basophils % 0 % Neutrophils # 6.1 (1.3-7.7) k/uL Lymphocytes # 3.5 (1.0-4.8) k/uL Monocytes # 0.6 (0-1.0) k/uL Eosinophils # 0.1 (0-0.7) k/uL Basophils # 0.1 (0-0.2) k/uL Sodium (137-145) mmol/L Potassium (3.5-5.1) mmol/L Chloride (98-107) mmol/L Carbon Dioxide (22-30) mmol/L Anion Gap mmol/L BUN (7-17) mg/dL Creatinine (0.52-1.04) mg/dL Est GFR (CKD-EPI)AfAm (>60 ml/min/1.73 sqM) Est GFR (CKD-EPI)NonAf (>60 ml/min/1.73 sqM) Glucose (74-99) mg/dL Calcium (8.4-10.2) mg/dL Total Bilirubin (0.2-1.3) mg/dL AST (14-36) U/L ALT (4-34) U/L Alkaline Phosphatase (38-126) U/L C-Reactive Protein (<1.0) mg/dL Total Protein (6.3-8.2) g/dL Albumin (3.5-5.0) g/dL Urine Color Urine Appearance (Clear) Urine pH (5.0-8.0) Ur Specific [place] (1.001-1.035) Urine Protein (Negative) Urine Glucose (UA) (Negative) Urine Ketones (Negative) Urine Blood (Negative) Urine Nitrite (Negative) Urine Bilirubin (Negative) Urine Urobilinogen (<2.0) mg/dL Ur Leukocyte Esterase (Negative) Urine HCG, Qual (Not Detectd) Disposition Clinical Impression: Sciatica Disposition: HOME SELF-CARE Condition: Good Instructions (If sedation given, give patient instructions): Sciatica (ED) Prescriptions: predniSONE 60 mg PO DAILY #30 tab methocarbamoL [Robaxin-750] 750 mg PO QID #28 tab Is patient prescribed a controlled substance at d/c from ED?: No Referrals: Michael Patton MD [Primary Care Provider] - 1-2 days
[2023-02-12 16:27] LABS: Basophils # (A) 0.1 k/uL (0-0.2); Basophils % (A) 0 %; Eosinophils # (A) 0.1 k/uL (0-0.7); Eosinophils % (A) 1 %; HCT 40.2 % (34.0-46.0); HGB 13.2 gm/dL (11.4-16.0); Lymphocytes # (A) 3.5 k/uL (1.0-4.8); Lymphocytes % (A) 33 %; MCH 30.1 pg (25.0-35.0); MCHC 32.8 g/dL (31.0-37.0); MCV 91.9 fL (80.0-100.0); Mean Platelet Volume 6.7; Monocytes # (A) 0.6 k/uL (0-1.0); Monocytes % (A) 5 %; Neutrophils # (A) 6.1 k/uL (1.3-7.7); Neutrophils % (A) 58 %; Platelet Count 305 k/uL (150-450); RBC 4.37 m/uL (3.80-5.40); RDW 13.7 % (11.5-15.5); WBC 10.5 k/uL (3.8-10.6)
[2023-02-12 16:38] LABS: Appearance,Urine Clear (Clear); Bilirubin,Urine Negative (Negative); Blood,Urine Negative (Negative); Color,Urine Colorless; Glucose,Urine (UA) Negative (Negative); Ketones,Urine Negative (Negative); Leukocyte Esterase,Urine Negative (Negative); Nitrite,Urine Negative (Negative); PH, Urine 7.5 (5.0-8.0); Protein,Urine Negative (Negative); Specific Gravity,Urine 1.006 (1.001-1.035); Urobilinogen,Urine <2.0 mg/dL (<2.0)
[2023-02-12 16:55] LABS: ALT 39 U/L (4-34); AST 31 U/L (14-36); African American GFR (CKD) >90 (>60 ml/min/1.73 sqM); Albumin 3.9 g/dL (3.5-5.0); Alkaline Phosphatase 87 U/L (38-126); Anion Gap 5 mmol/L; Blood Urea Nitrogen 12 mg/dL (7-17); C Reactive Protein 1.7 mg/dL (<1.0); Calcium 8.7 mg/dL (8.4-10.2); Carbon Dioxide 29 mmol/L (22-30); Chloride 103 mmol/L (98-107); Glucose 88 mg/dL (74-99); Non-African American GFR(CKD) >90 (>60 ml/min/1.73 sqM); Potassium 4.3 mmol/L (3.5-5.1); Sodium 137 mmol/L (137-145); Total Bilirubin 0.4 mg/dL (0.2-1.3); Total Protein 7.1 g/dL (6.3-8.2)
[2023-02-12 17:40] VITALS: BP 140/79; PULSE 97; RESP 16; TEMP 98
== END 2023-02-12 17:39 | disposition home or self-care (01) ==
LOC: EC 13:32
DX: M54.40 Lumbago with sciatica, unspecified side (principal); M19.90 Unspecified osteoarthritis, unspecified site; F90.9 Attention-deficit hyperactivity disorder, unspecified type; Z79.1 Long term (current) use of non-steroidal anti-inflammatories (NSAID); Z88.6 Allergy status to analgesic agent; Z88.8 Allergy status to other drugs, medicaments and biological substances; Z79.899 Other long term (current) drug therapy
CPT/HCPCS: 36415; 80053; 85025; 86140; 81003; 81025; 99283; 96372; J2360; J7512

== ENCOUNTER 2023-02-12 23:43 | Emergency (ER) | payer BC ==
[2023-02-12 23:50] VITALS: TEMP 98.5
[2023-02-13] MEDS ORDERED: KETOROLAC 15 MG/ML 1 ML VIAL IM STA (00:34)
[2023-02-13] MEDS ORDERED: HYDROmorphone 0.5 MG/0.5 ML SYRINGE IM STA ×2 (00:34→01:25)
--- NOTE | 2023-02-13 01:28 | ED ---
General Adult HPI - General Chief complaint: Extremity Problem,Nontraumatic Stated complaint: Right Leg Pain Time Seen by Provider: 02/13/23 00:24 Source: patient Mode of arrival: ambulatory Limitations: no limitations - History of Present Illness Initial comments: 37-year-old female presenting with chief complaint of lower back pain with radiation down the right leg. Patient was seen here earlier for the same complaints, she received negative laboratory studies including a UA, she is discharged home with muscle relaxers and prednisone. She states that the pain has continued into this evening. She denies any loss of bowel or bladder control or saddle paresthesia. Denies chest pain, difficulty breathing, fever, chills, dysuria, hematuria, nausea, vomiting. - Related Data Home Medications Medication Instructions Recorded Confirmed Celecoxib [CeleBREX] 100 mg PO BID PRN 10/17/21 11/22/21 Dextroamphetamine/Amphetamine 15 mg PO DAILY 11/19/21 11/22/21 [Adderall] Previous Rx's Medication Instructions Recorded HYDROcodone/APAP 7.5-325MG [[place] 1 tab PO Q4-6H PRN #30 tab 11/22/21 7.5-325] predniSONE [Deltasone] 40 mg PO DAILY #8 tab 08/18/22 methocarbamoL [Robaxin-750] 750 mg PO QID #28 tab 02/12/23 predniSONE 60 mg PO DAILY #30 tab 02/12/23 Allergies Allergy/AdvReac Type Severity Reaction Status Date / Time nirmatrelvir Allergy Anaphylaxis Verified 02/12/23 23:50 [From Paxlovid (EUA)] ritonavir Allergy Anaphylaxis Verified 02/12/23 23:50 [From Paxlovid (EUA)] Review of Systems ROS Statement: Those systems with pertinent positive or pertinent negative responses have been documented in the HPI. ROS Other: All systems not noted in ROS Statement are negative. Past Medical History Past Medical History: Osteoarthritis (OA) Additional Past Medical History / Comment(s): INJURY TO LT ANKLE 10/17/21 History of Any Multi-Drug Resistant Organisms: None Reported Past Surgical History: Cholecystectomy, Orthopedic Surgery Additional Past Surgical History / Comment(s): right knee SX, Past Anesthesia/Blood Transfusion Reactions: No Reported Reaction Past Psychological History: ADD/ADHD Smoking Status: Never smoker Past Alcohol Use History: Occasional Past Drug Use History: None Reported - Past Family History Mother Family Medical History: No Reported History General Exam Limitations: no limitations General appearance: alert, in no apparent distress Head exam: Present: atraumatic, normocephalic, normal inspection Eye exam: Present: normal appearance, EOMI. Absent: scleral icterus, periorb ital swelling Neck exam: Present: normal inspection, full ROM Respiratory exam: Present: normal lung sounds bilaterally. Absent: respiratory distress, wheezes, rales, rhonchi, stridor Cardiovascular Exam: Present: regular rate, normal rhythm, normal heart sounds. Absent: systolic murmur, diastolic murmur, rubs, gallop, clicks GI/Abdominal exam: Present: soft. Absent: distended, tenderness, guarding, rebound, rigid Extremities exam: Present: normal inspection, full ROM Back exam: Present: normal inspection, tenderness Neurological exam: Present: alert, oriented X3, CN II-XII intact Psychiatric exam: Present: normal affect, normal mood Skin exam: Present: warm, dry, intact, normal color. Absent: rash Course Vital Signs 02/12/23 02/13/23 23:48 01:35 Temperature 98.5 F Pulse Rate 130 H 84 Respiratory 20 18 Rate Blood Pressure 170/108 147/81 O2 Sat by Pulse 97 Oximetry Medical Decision Making - Medical Decision Making Was pt. sent in by a medical professional or institution (JOE Cabral, METER INSTALLER AND REMOVER, urgent care, hospital, or [facility]...) When possible be specific @ -No Did you speak to anyone other than the patient for history (EMS, parent, family, police, friend...)? What history was obtained from this source @ -No Did you review nursing and triage notes (agree or disagree)? Why? @ -I reviewed and agree with nursing and triage notes Were old charts reviewed (outside hosp., previous admission, EMS record, old EKG, old radiological studies, urgent care reports/EKG's, [facility] records)? Report findings @ -Today's previous laboratory studies are reviewed Differential Diagnosis (chest pain, altered mental status, abdominal pain women, abdominal pain men, vaginal bleeding, weakness, fever, dyspnea, syncope, headache, dizziness, GI bleed, back pain, seizure, CVA, palpatations, mental health, musculoskeletal)? @ - [facility] [place] Differential Back Pain: Strain, zoster, cauda equina syndrome, epidural abscess, vertebral osteomyelitis, discitis, fracture, subluxation, disc herniation, DJD, spinal stenosis, dissection, AAA, pancreatitis, peptic ulcer disease, pyelonephritis, kidney stone this is not meant to be an all-inclusive list. EKG interpreted by me (3pts min.). @ -As above X-rays interpreted by me (1pt min.). @ -None done CT interpreted by me (1pt min.). @ -None done U/S interpreted by me (1pt. min.). @ -None done What testing was considered but not performed or refused? (CT, X-rays, U/S, labs)? Why? @ -None What meds were considered but not given or refused? Why? @ -None Did you discuss the management of the patient with other professionals (professionals i.e. , PA, METER INSTALLER AND REMOVER, lab, RT, psych nurse, manager social media, shipping supervisor, teacher, credit risk review officer, supervisor case loading)? Give summary @ -No Was smoking cessation discussed for >3mins.? @ -No Was critical care preformed (if so, how long)? @ -No Were there social determinants of health that impacted care today? How? (Homelessness, low income, unemployed, alcoholism, drug addiction, transportation, low edu. Level, literacy, decrease access to med. care, intermediate, rehab)? @ -No Was there de-escalation of care discussed even if they declined (Discuss DNR or withdrawal of care, Hospice)? DNR status @ -No What co-morbidities impacted this encounter? (DM, HTN, Smoking, COPD, CAD, Cancer, CVA, ARF, Chemo, Hep., AIDS, mental health diagnosis, sleep apnea, morbid obesity)? @ -None Was patient admitted / discharged? Hospital course, mention meds given and route, prescriptions, significant lab abnormalities, going to OR and other pertinent info. @ -37-year-old female presenting with chief complaint of lower back pain with radiation down the right leg. No red flag symptoms. Patient received negative workup earlier today including urine, CBC, CMP, and CRP. She was sent home with muscle relaxers and prednisone. Patient is treated with Toradol, Dilaudid, and lidocaine patch. She is educated on the need for follow-up and possible MRI. She is breast a referral to the spinal specialist at [facility] where she has followed previously. Follow-up with PCP. Report back to ER with any new or worsening symptoms. Discussed return parameters and answered all questions. Patient conveyed verbal understanding and agreed to the plan. I discussed this case in detail with my attending Dr. Massey Undiagnosed new problem with uncertain prognosis? @ -No Drug Therapy requiring intensive monitoring for toxicity (Heparin, Nitro, Insulin, Cardizem)? @ -No Were any procedures done? @ -No Diagnosis/symptom? @ -Lumbar radiculopathy Acute, or Chronic, or Acute on Chronic? @ -Acute Uncomplicated (without systemic symptoms) or Complicated (systemic symptoms)? @ -Uncomplicated Side effects of treatment? @ -No Exacerbation, Progression, or Severe Exacerbation? @ -No Poses a threat to life or bodily function? How? (Chest pain, [place], [place], pneumonia, PE, COPD, DKA, ARF, appy, cholecystitis, CVA, Diverticulitis, Homicidal, Suicidal, threat to staff... and all critical care pts) @ -No Disposition Clinical Impression: Sciatica Disposition: HOME SELF-CARE Condition: Good Instructions (If sedation given, give patient instructions): Acute Low Back Pain (ED), Lumbar Radiculopathy (ED), Lower Back Exercises (ED) Additional Instructions: Follow-up with PCP and orthopedics. Report back to ER with any new or worsening symptoms. Is patient prescribed a controlled substance at d/c from ED?: No Referrals: Michael Patton MD [Primary Care Provider] - 1-2 days Maddy Rubalcava DO [Doctor of Osteopathic Medicine] - 1-2 days Time of Disposition: 01:28
[2023-02-13 01:37] VITALS: BP 147/81; PULSE 84; RESP 18
[2023-02-13] MEDS ORDERED: LIDOCAINE 5% PATCH TOPICAL SCH (09:00)
== END 2023-02-13 02:12 | disposition home or self-care (01) ==
LOC: EC 23:43
DX: M54.40 Lumbago with sciatica, unspecified side (principal); M19.90 Unspecified osteoarthritis, unspecified site; F90.9 Attention-deficit hyperactivity disorder, unspecified type; Z79.1 Long term (current) use of non-steroidal anti-inflammatories (NSAID); Z79.899 Other long term (current) drug therapy; Z88.8 Allergy status to other drugs, medicaments and biological substances
CPT/HCPCS: 99284; 96372 ×3; J1885; J1170

== ENCOUNTER 2023-03-06 04:58 | Emergency (ER) | payer BC ==
[2023-03-06 05:07] VITALS: RESP 18
[2023-03-06] MEDS ORDERED: HYDROcodone/APAP 7.5-325MG 1 EACH TAB PO ONE (06:10)
[2023-03-06] MEDS ORDERED: diazePAM 5 MG TAB PO STA (06:10)
[2023-03-06] MEDS ORDERED: KETOROLAC 15 MG/ML 1 ML VIAL IM STA (06:10)
--- NOTE | 2023-03-06 06:29 | ED ---
Back Pain HPI - General Chief Complaint: Back Pain/Injury Stated Complaint: Back pain Time Seen by Provider: 03/06/23 05:59 Source: patient, RN notes reviewed Mode of arrival: wheelchair Limitations: no limitations - History of Present Illness Initial Comments: This is a 37-year-old female who presents to the emergency department for back pain. States that she was here last month after "throwing her back out", however she had started to do better over the last couple of weeks. Last night, she went to stand up from the couch, and suddenly developed severe pain in her right lower back again. States that this is lower than it was last time, but otherwise feels the same. She took the Celebrex and Flexeril that she has at home with no relief in symptoms. States that she has since been unable to get comfortable or get any sleep because of the pain. Denies any loss of bowel/bladder control or saddle anesthesia. Denies any fevers, chills, sore throat, cough, dyspnea, chest pain, palpitations, abdominal pain, nausea, vomiting, diarrhea, or headaches. MD Complaint: back pain - Related Data Home Medications Medication Instructions Recorded Confirmed Celecoxib [CeleBREX] 100 mg PO BID PRN 10/17/21 11/22/21 Dextroamphetamine/Amphetamine 15 mg PO DAILY 11/19/21 11/22/21 [Adderall] Previous Rx's Medication Instructions Recorded HYDROcodone/APAP 7.5-325MG [Virgie 1 tab PO Q4-6H PRN #30 tab 11/22/21 7.5-325] predniSONE [Deltasone] 40 mg PO DAILY #8 tab 08/18/22 methocarbamoL [Robaxin-750] 750 mg PO QID #28 tab 02/12/23 predniSONE 60 mg PO DAILY #30 tab 02/12/23 HYDROcodone/APAP 7.5-325MG [[place]gie 1 tab PO Q6HR PRN 3 Days #12 tab 03/06/23 7.5-325] predniSONE 50 mg PO DAILY 5 Days #5 tablet 03/06/23 Allergies Allergy/AdvReac Type Severity Reaction Status Date / Time nirmatrelvir Allergy Anaphylaxis Verified 03/06/23 05:07 [From Paxlovid (EUA)] ritonavir Allergy Anaphylaxis Verified 03/06/23 05:07 [From Paxlovid (EUA)] Review of Systems ROS Statement: Those systems with pertinent positive or pertinent negative responses have been documented in the HPI. ROS Other: All systems not noted in ROS Statement are negative. Past Medical History Past Medical History: Osteoarthritis (OA) Additional Past Medical History / Comment(s): INJURY TO LT ANKLE 10/17/21 History of Any Multi-Drug Resistant Organisms: None Reported Past Surgical History: Cholecystectomy, Orthopedic Surgery Additional Past Surgical History / Comment(s): right knee SX, Past Anesthesia/Blood Transfusion Reactions: No Reported Reaction Past Psychological History: ADD/ADHD Smoking Status: Never smoker Past Alcohol Use History: Occasional Past Drug Use History: None Reported - Past Family History Mother Family Medical History: No Reported History General Exam Limitations: no limitations General appearance: alert, in distress Respiratory exam: Present: normal lung sounds bilaterally. Absent: respiratory distress, wheezes, rales, rhonchi, stridor Cardiovascular Exam: Present: regular rate, normal rhythm, normal heart sounds. Absent: systolic murmur, diastolic murmur, rubs, gallop, clicks GI/Abdominal exam: Present: soft, normal bowel sounds. Absent: distended, tenderness, guarding, rebound, rigid Back exam: Present: tenderness (Right lumbosacral spine) Neurological exam: Present: alert, oriented X3, CN II-XII intact Psychiatric exam: Present: normal affect, normal mood Skin exam: Present: warm, dry, intact, normal color. Absent: rash Course Vital Signs 03/06/23 03/06/23 05:03 07:46 Temperature 98.2 F 98.6 F Pulse Rate 92 68 Respiratory 18 18 Rate Blood Pressure 153/92 132/74 O2 Sat by Pulse 96 97 Oximetry Medical Decision Making - Medical Decision Making This is a 37-year-old female who presents to the emergency department for back pain. Was pt. sent in by a medical professional or institution? @ -No Did you speak to anyone other than the patient for history? @ -No Did you review nursing and triage notes? @ -Yes, and I agree, it is accurate with regards to the patient's symptoms. Were old charts reviewed? @ -No Differential Diagnosis? @ -Differential Back Pain: Strain, zoster, cauda equina syndrome, epidural abscess, vertebral osteomyelitis, discitis, fracture, subluxation, disc herniation, DJD, spinal stenosis, dissection, AAA, pancreatitis, peptic ulcer disease, pyelonephritis, kidney stone, this is not meant to be an all-inclusive list. EKG interpreted by me (3pts min.)? @ -Not obtained X-rays interpreted by me (1pt min.)? @ -X-ray of the lumbosacral spine and right hip obtained. My interpretation identifies no acute fractures. CT interpreted by me (1pt min.)? @ -Not obtained U/S interpreted by me (1pt. min.)? @ -Not obtained What testing was considered but not performed? (CT, X-rays, U/S, labs)? Why? @ -None What meds were considered but not given? Why? @ -None Did you discuss the management of the patient with other professionals? @ -No Did you reconcile home meds? @ -No Was smoking cessation discussed for >3mins.? @ -No Was critical care preformed (if so, how long)? @ -No Were there social determinants of health that impacted care today? How? (Homelessness, low income, unemployed, alcoholism, drug addiction, transportation, low edu. Level, literacy, decrease access to med. care, long term, rehab)? @ -No Was there de-escalation of care discussed even if they declined? (Discuss DNR or withdrawal of care, Hospice)? @ -No What co-morbidities impacted this encounter? (DM, HTN, Smoking, COPD, CAD, Cancer, CVA, Hep., AIDS, mental health diagnosis, sleep apnea, morbid obesity)? @ -Morbid obesity Was patient admitted / discharged? @ -Discharged. X-ray of the lumbosacral spine and right hip obtained revealing mild degenerative changes and no acute process. Patient symptoms are most likely related to a muscular strain. Her pain was controlled in the emergency department. Prescription for 5 day course of prednisone and Virgie provided with dosing instructions revealed. She is advised to take the Virgie very sparingly when her pain is the most severe and avoid driving or operating machinery when taking this. Also advised to continue with her Flexeril and to try applying ice for the first 2-3 days followed by heat thereafterwards. She will otherwise follow up with her PCP for reevaluation and proceed with her MRI as scheduled. Undiagnosed new problem with uncertain prognosis? @ -None Drug Therapy requiring intensive monitoring for toxicity (Heparin, Nitro, Insulin, Cardizem)? @ -None Were any procedures done? @ -None Diagnosis/symptom? @ -Lumbar back strain Acute, or Chronic, or Acute on Chronic? @ -Acute Uncomplicated (without systemic symptoms) or Complicated (systemic symptoms)? @ -Uncomplicated Side effects of treatment? @ -None Exacerbation, Progression, or Severe Exacerbation] @ -Not applicable Poses a threat to life or bodily function? @ -No Return precautions reviewed in depth, the patient is instructed to return to the emergency department with any new, worsening, or concerning symptoms. Patient verbalized understanding. This case was discussed in detail with the attending ED physician, Dr. Beauchamp. Presentation, findings, and treatment plan discussed in detail as well. - Radiology Data Radiology results: report reviewed, image reviewed Disposition Clinical Impression: Strain of lumbar region Disposition: HOME SELF-CARE Instructions (If sedation given, give patient instructions): Low Back Strain (ED), Acute Low Back Pain (ED) Additional Instructions: Return to the emergency department with any new, worsening, or concerning symptoms. Take the prednisone daily for 5 days. Continue to take your muscle relaxant. Take the Virgie sparingly when your pain is the most severe and be aware that it may make you drowsy and you should avoid driving or operating machinery when taking this. Follow up with your primary care provider in 1-2 days. Prescriptions: HYDROcodone/APAP 7.5-325MG [Virgie 7.5-325] 1 tab PO Q6HR PRN 3 Days #12 tab PRN Reason: Pain predniSONE 50 mg PO DAILY 5 Days #5 tablet Is patient prescribed a controlled substance at d/c from ED?: Yes When asked, does pt state using other controlled substances?: Yes If prescribed controlled substance>3 days was MAPS reviewed?: Prescribed <3 Days Referrals: Michael Patton MD [Primary Care Provider] - 1-2 days
--- NOTE | 2023-03-06 07:05 | XR ---
EXAMINATION TYPE: XR lumbosacral spine min 4V DATE OF EXAM: 03/06/2023 6:26 AM INDICATION: Patient age:Female; 37 years old; Reason for study: Pain; COMPARISON: None TECHNIQUE: Frontal, lateral , bilateral oblique and coned in L5-S1 lateral views of the spine. FINDINGS: No evidence of any acute osseous pathology. No evidence of loss of vertebral body height i s seen. There is scoliosis alignment of the lumbar vertebral bodies. Mild scattered disc space narrow ing. Multilevel marginal osteophyte formation throughout the visualized spine. There is facet joint a rthropathy throughout the spine. Scattered at least mild neural foraminal stenosis. Cholecystectomy c lips present. IMPRESSION: 1. No acute fracture. 2. Mild multilevel disc degeneration.
--- NOTE | 2023-03-06 07:05 | XR ---
EXAMINATION TYPE: XR Hip Complete RT DATE OF EXAM: 03/06/2023 6:26 AM INDICATION: Patient age:Female; 37 years old; Reason for study: Pain; COMPARISON: None. TECHNIQUE: The right hip was examined in the frontal and lateral projections FINDINGS: No evidence for acute process, joint dislocation or significant soft tissue swelling. Osteo phyte formation of the superior acetabulum of the hips. IMPRESSION: 1. No evidence for acute process. 2. Mild hip osteoarthrosis.
[2023-03-06 07:48] VITALS: BP 132/74; PULSE 68; TEMP 98.6
== END 2023-03-06 07:49 | disposition home or self-care (01) ==
LOC: EC 04:58
DX: S39.012A Strain of muscle, fascia and tendon of lower back, initial encounter (principal); M19.90 Unspecified osteoarthritis, unspecified site; F90.9 Attention-deficit hyperactivity disorder, unspecified type; Z79.899 Other long term (current) drug therapy; Z88.8 Allergy status to other drugs, medicaments and biological substances
CPT/HCPCS: 72110; 73502; 99284; 96372; J1885

== ENCOUNTER 2023-03-12 19:42 | Emergency (ER) | payer BC ==
[2023-03-12 20:09] VITALS: RESP 18
[2023-03-12] MEDS ORDERED: LIDOCAINE 5% PATCH TOPICAL STA (22:10)
[2023-03-12] MEDS ORDERED: ORPHENADRINE 30 MG/ML 2 ML VIAL IVP STA (22:14)
[2023-03-12] MEDS ORDERED: KETOROLAC 15 MG/ML 1 ML VIAL IVP STA (22:14)
--- NOTE | 2023-03-12 22:38 | ED ---
General Adult HPI - General Chief complaint: Back Pain/Injury Stated complaint: lower back and leg pain Time Seen by Provider: 03/12/23 21:14 Source: patient, RN notes reviewed Mode of arrival: ambulatory Limitations: no limitations - History of Present Illness Initial comments: 37-year-old female presents emergency department chief complaint of "sciatica pain." Patient states that she has had this pain in the past originating in the right buttock and radiating down her leg. She was seen here for this same issue in the past which she states improved at time with steroids and pain medication. She states that last week she developed pain across her low lumbar region and was seen here for this issue. The pain is since resolved and she is now having a sciatica type pain again. She reports that she stood up from the couch and started having this pain. She states that she went for a massage yesterday and feels that that triggered the pain. She reports taking Flexeril this morning and a [place] which did not improve her symptoms. She states that she has been following closely with her primary care provider for this [place] [id number]. She is not having any loss of bowel or bladder function, saddle anesthesia, urinary retention, fever, chills. - Related Data Home Medications Medication Instructions Recorded Confirmed Celecoxib [CeleBREX] 100 mg PO BID PRN 10/17/21 11/22/21 Dextroamphetamine/Amphetamine 15 mg PO DAILY 11/19/21 11/22/21 [Adderall] Previous Rx's Medication Instructions Recorded HYDROcodone/APAP 7.5-325MG [[place] 1 tab PO Q4-6H PRN #30 tab 11/22/21 7.5-325] predniSONE [Deltasone] 40 mg PO DAILY #8 tab 08/18/22 methocarbamoL [Robaxin-750] 750 mg PO QID #28 tab 02/12/23 predniSONE 60 mg PO DAILY #30 tab 02/12/23 HYDROcodone/APAP 7.5-325MG [[place] 1 tab PO Q6HR PRN 3 Days #12 tab 03/06/23 7.5-325] predniSONE 50 mg PO DAILY 5 Days #5 tablet 03/06/23 Lidocaine 5% Patch [Lidoderm 5% 1 patch TOPICAL DAILY #30 patch 03/13/23 Patch] Allergies Allergy/AdvReac Type Severity Reaction Status Date / Time nirmatrelvir Allergy Anaphylaxis Verified 03/06/23 05:07 [From Paxlovid (EUA)] ritonavir Allergy Anaphylaxis Verified 03/06/23 05:07 [From Paxlovid (EUA)] Review of Systems ROS Statement: Those systems with pertinent positive or pertinent negative responses have been documented in the HPI. ROS Other: All systems not noted in ROS Statement are negative. Past Medical History Past Medical History: Osteoarthritis (OA) Additional Past Medical History / Comment(s): INJURY TO LT ANKLE 10/17/21 History of Any Multi-Drug Resistant Organisms: None Reported Past Surgical History: Cholecystectomy, Orthopedic Surgery Additional Past Surgical History / Comment(s): right knee SX, Past Anesthesia/Blood Transfusion Reactions: No Reported Reaction Past Psychological History: ADD/ADHD Smoking Status: Never smoker Past Alcohol Use History: Occasional Past Drug Use History: None Reported - Past Family History Mother Family Medical History: No Reported History General Exam Limitations: no limitations General appearance: alert, in no apparent distress Head exam: Present: atraumatic, normocephalic, normal inspection Eye exam: Present: normal appearance, PERRL, EOMI. Absent: scleral icterus, conjunctival injection, periorbital swelling ENT exam: Present: normal exam, mucous membranes moist Neck exam: Present: normal inspection. Absent: tenderness, meningismus, lymphadenopathy Respiratory exam: Present: normal lung sounds bilaterally. Absent: respiratory distress, wheezes, rales, rhonchi, stridor Cardiovascular Exam: Present: regular rate, normal rhythm, normal heart sounds. Absent: systolic murmur, diastolic murmur, rubs, gallop, clicks GI/Abdominal exam: Present: soft, normal bowel sounds. Absent: distended, te nderness, guarding, rebound, rigid Extremities exam: Present: full ROM, tenderness (right buttock), normal capillary refill, other (DP and PT pulses 2+). Absent: pedal edema, joint swelling, calf tenderness Back exam: Present: normal inspection. Absent: CVA tenderness (R), CVA tenderness (L), paraspinal tenderness, vertebral tenderness Neurological exam: Present: alert, oriented X3 Psychiatric exam: Present: normal affect, normal mood Skin exam: Present: warm, dry, intact, normal color. Absent: rash Course Vital Signs 03/12/23 03/12/23 20:04 23:44 Temperature 98.4 F 97.1 F L Pulse Rate 105 H 83 Respiratory 18 18 Rate Blood Pressure 158/113 151/104 O2 Sat by Pulse 98 97 Oximetry Medical Decision Making - Medical Decision Making Was pt. sent in by a medical professional or institution (, JOE, HOSPICE PLAN ADMINISTRATOR, urgent care, hospital, or shelter...) When possible be specific @ -No Did you speak to anyone other than the patient for history (EMS, parent, family, police, friend...)? What history was obtained from this source @ -No Did you review nursing and triage notes (agree or disagree)? Why? @ -I reviewed and agree with nursing and triage notes Were old charts reviewed (outside hosp., previous admission, EMS record, old EKG, old radiological studies, urgent care reports/EKG's, shelter records)? Report findings @ -No old charts were reviewed Differential Diagnosis (chest pain, altered mental status, abdominal pain women, abdominal pain men, vaginal bleeding, weakness, fever, dyspnea, syncope, headache, dizziness, GI bleed, back pain, seizure, CVA, palpatations, mental health, musculoskeletal)? @ -Differential Musculoskeletal Muscular strain, contusion, ligament sprain, fracture, arthritis, septic arthritis, bursitis, cellulitis, muscle spasm, nerve compression, DVT, arterial occlusion, herpes zoster, electrolyte abnormality, tumor.... This is not meant to be in all inclusive list EKG interpreted by me (3pts min.). @ -None X-rays interpreted by me (1pt min.). @ -None done CT interpreted by me (1pt min.). @ -None done U/S interpreted by me (1pt. min.). @ -None done What testing was considered but not performed or refused? (CT, X-rays, U/S, labs)? Why? @ -X-rays considered but patient recently had x-rays performed and has not had any new trauma since then. What meds were considered but not given or refused? Why? @ -None Did you discuss the management of the patient with other professionals (professionals i.e. , JOE, HOSPICE PLAN ADMINISTRATOR, lab, RT, psych nurse, sr. social media & mobile manager, machine paint mixer, teacher, chief school finance officer, case worker)? Give summary @ -No Was smoking cessation discussed for >3mins.? @ -No Was critical care preformed (if so, how long)? @ -No Were there social determinants of health that impacted care today? How? (Homelessness, low income, unemployed, alcoholism, drug addiction, transportation, low edu. Level, literacy, decrease access to med. care, fpc, rehab)? @ -No Was there de-escalation of care discussed even if they declined (Discuss DNR or withdrawal of care, Hospice)? DNR status @ -No What co-morbidities impacted this encounter? (DM, HTN, Smoking, COPD, CAD, Cancer, CVA, ARF, Chemo, Hep., AIDS, mental health diagnosis, sleep apnea, morbid obesity)? @ -None Was patient admitted / discharged? Hospital course, mention meds given and route, prescriptions, significant lab abnormalities, going to OR and other pertinent info. @ -Discharged. Patient presented to emergency department chief complaint of right buttock pain radiating down the right leg. Patient is not having any red flag symptoms at this time. Patient is not having any trauma or injury. Imaging was completely x-ray at her last visit which was negative. Patient states that she is scheduled for an MRI on March 22. Patient has been following closely with her primary care provider for these symptoms. Patient given Norflex, Toradol, lidocaine patch. Patient had some improvement with this regimen but was still in significant pain. Patient takes 7.5 mg at home every 6 hours as needed and was due for home dose this was given to her. Patient advise d to follow-up with her primary care provider and keep her MRI as scheduled. Case discussed with my attending, Dr. Beauchamp. Patient discharged in stable condition Undiagnosed new problem with uncertain prognosis? @ -No Drug Therapy requiring intensive monitoring for toxicity (Heparin, Nitro, Insulin, Cardizem)? @ -No Were any procedures done? @ -No Diagnosis/symptom? @ -Sciatica Acute, or Chronic, or Acute on Chronic? @ -Acute Uncomplicated (without systemic symptoms) or Complicated (systemic symptoms)? @ -Uncomplicated Side effects of treatment? @ -No Exacerbation, Progression, or Severe Exacerbation? @ -No Poses a threat to life or bodily function? How? (Chest pain, [place], [place], pneumonia, PE, COPD, DKA, ARF, appy, cholecystitis, CVA, Diverticulitis, Homicidal, Suicidal, threat to staff... and all critical care pts) @ -No Disposition Clinical Impression: Sciatica Disposition: HOME SELF-CARE Condition: Stable Instructions (If sedation given, give patient instructions): Acute Low Back Pain (ED) Additional Instructions: Please return to the emergency department for red flag symptoms we discussed. Follow up with your primary care provider tomorrow. Prescriptions: Lidocaine 5% Patch [Lidoderm 5% Patch] 1 patch TOPICAL DAILY #30 patch Is patient prescribed a controlled substance at d/c from ED?: No Referrals: Michael Patton MD [Primary Care Provider] - 1-2 days Time of Disposition: 23:28
[2023-03-12] MEDS ORDERED: HYDROcodone/APAP 7.5-325MG 1 EACH TAB PO ONE (23:27)
[2023-03-12 23:47] VITALS: BP 151/104; PULSE 83; TEMP 97.1
== END 2023-03-12 23:47 | disposition home or self-care (01) ==
LOC: EC 19:42
DX: M54.41 Lumbago with sciatica, right side (principal); Z88.8 Allergy status to other drugs, medicaments and biological substances
CPT/HCPCS: 99283; 96374; 96375; J2360; J1885

== ENCOUNTER 2023-03-13 05:30 | Emergency (ER) | payer BC ==
[2023-03-13 05:48] VITALS: TEMP 97.9
[2023-03-13] MEDS ORDERED: KETOROLAC 15 MG/ML 1 ML VIAL IVP STA (06:05)
[2023-03-13] MEDS ORDERED: ORPHENADRINE 30 MG/ML 2 ML VIAL IVP STA ×2 (06:14→07:15)
--- NOTE | 2023-03-13 06:15 | ED ---
Back Pain HPI - General Chief Complaint: Extremity Problem,Nontraumatic Stated Complaint: Pain in leg Time Seen by Provider: 03/13/23 05:57 Source: patient, RN notes reviewed Mode of arrival: wheelchair Limitations: no limitations - History of Present Illness Initial Comments: This is a 37-year-old female who presents to the emergency department for lower back pain radiating down the right leg. Patient was evaluated here last night and one week ago for the same complaint. States that she felt better when she was here, however when she was discharged home the pain returned and she has not been able to sleep. Her states that she has not slept in 48 hours. She tried doubling the dose of her Flexeril to 10 mg, however that was not helpful. Her MRI is scheduled for 03/23. Denies any new injuries or loss of bowel/bladder control. She had no relief with the [place] she was sent home with yesterday and did not have any improvement on the course of prednisone she was prescribed one week ago. Denies any fevers, chills, sore throat, cough, dyspnea, chest pain, palpitations, abdominal pain, nausea, vomiting, diarrhea, or headaches. MD Complaint: back pain - Related Data Home Medications Medication Instructions Recorded Confirmed Celecoxib [CeleBREX] 100 mg PO BID PRN 10/17/21 11/22/21 Dextroamphetamine/Amphetamine 15 mg PO DAILY 11/19/21 11/22/21 [Adderall] Previous Rx's Medication Instructions Recorded HYDROcodone/APAP 7.5-325MG [[place] 1 tab PO Q4-6H PRN #30 tab 11/22/21 7.5-325] predniSONE [Deltasone] 40 mg PO DAILY #8 tab 08/18/22 predniSONE 60 mg PO DAILY #30 tab 02/12/23 HYDROcodone/APAP 7.5-325MG [[place] 1 tab PO Q6HR PRN 3 Days #12 tab 03/06/23 7.5-325] predniSONE 50 mg PO DAILY 5 Days #5 tablet 03/06/23 Lidocaine 5% Patch [Lidoderm 5% 1 patch TOPICAL DAILY #30 patch 03/13/23 Patch] Orphenadrine [Norflex] 100 mg PO Q12H PRN #20 tab 03/13/23 Allergies Allergy/AdvReac Type Severity Reaction Status Date / Time nirmatrelvir Allergy Anaphylaxis Verified 03/13/23 05:48 [From Paxlovid (EUA)] ritonavir Allergy Anaphylaxis Verified 03/13/23 05:48 [From Paxlovid (EUA)] Review of Systems ROS Statement: Those systems with pertinent positive or pertinent negative responses have been documented in the HPI. ROS Other: All systems not noted in ROS Statement are negative. Past Medical History Past Medical History: Osteoarthritis (OA) Additional Past Medical History / Comment(s): INJURY TO LT ANKLE 10/17/21 History of Any Multi-Drug Resistant Organisms: None Reported Past Surgical History: Cholecystectomy, Orthopedic Surgery Additional Past Surgical History / Comment(s): right knee SX, Past Anesthesia/Blood Transfusion Reactions: No Reported Reaction Past Psychological History: ADD/ADHD Smoking Status: Never smoker Past Alcohol Use History: Occasional Past Drug Use History: None Reported - Past Family History Mother Family Medical History: No Reported History General Exam Limitations: no limitations General appearance: alert, in distress Head exam: Present: atraumatic, normocephalic, normal inspection Respiratory exam: Present: normal lung sounds bilaterally. Absent: respiratory distress, wheezes, rales, rhonchi, stridor Cardiovascular Exam: Present: regular rate, normal rhythm, normal heart sounds. Absent: systolic murmur, diastolic murmur, rubs, gallop, clicks Back exam: Present: normal inspection, tenderness (Right lumbosacral region) Neurological exam: Present: alert, oriented X3, CN II-XII intact Psychiatric exam: Present: normal affect, normal mood Skin exam: Present: warm, dry, intact, normal color. Absent: rash Course Vital Signs 03/13/23 03/13/23 03/13/23 05:41 07:58 08:37 Temperature 97.9 F Pulse Rate 118 H 92 84 Respiratory 20 15 15 Rate Blood Pressure 144/97 164/116 143/84 O2 Sat by Pulse 98 100 Oximetry 03/13/23 08:57 Temperature Pulse Rate 84 Respiratory 15 Rate Blood Pressure 143/84 O2 Sat by Pulse 94 L Oximetry Medical Decision Making - Medical Decision Making This is a 37-year-old female who presents to the emergency department for back pain. Was pt. sent in by a medical professional or institution? @ -No Did you speak to anyone other than the patient for history? @ -No Did you review nursing and triage notes? @ -Yes, and I agree, it is accurate with regards to the patient's symptoms. Were old charts reviewed? @ -No Differential Diagnosis? @ -Differential Back Pain: Strain, zoster, cauda equina syndrome, epidural abscess, vertebral osteomyelitis, discitis, fracture, subluxation, disc herniation, DJD, spinal stenosis, dissection, AAA, pancreatitis, peptic ulcer disease, pyelonephritis, kidney stone, this is not meant to be an all-inclusive list. EKG interpreted by me (3pts min.)? @ -Not obtained X-rays interpreted by me (1pt min.)? @ -Not obtained CT interpreted by me (1pt min.)? @ -Not obtained U/S interpreted by me (1pt. min.)? @ -Not obtained What testing was considered but not performed? (CT, X-rays, U/S, labs)? Why? @ -None What meds were considered but not given? Why? @ -None Did you discuss the management of the patient with other professionals? @ -No Did you reconcile home meds? @ -No Was smoking cessation discussed for >3mins.? @ -No Was critical care preformed (if so, how long)? @ -No Were there social determinants of health that impacted care today? How? (Homelessness, low income, unemployed, alcoholism, drug addiction, transportation, low edu. Level, literacy, decrease access to med. care, intermediate, rehab)? @ -No Was there de-escalation of care discussed even if they declined? (Discuss DNR or withdrawal of care, Hospice)? @ -No What co-morbidities impacted this encounter? (DM, HTN, Smoking, COPD, CAD, Cancer, CVA, Hep., AIDS, mental health diagnosis, sleep apnea, morbid obesity)? @ -Morbid obesity Was patient admitted / discharged? @ -Discharged. Patient's pain was controlled in the emergency department with Toradol, Valium, and Norflex. Prescription for Norflex provided with dosing instructions reviewed. Advised she try this in place of the Flexeril to see if it is more effective in controlling her symptoms. She will otherwise continue with her at home pain medication and proceed with her MRI as scheduled. Undiagnosed new problem with uncertain prognosis? @ -None Drug Therapy requiring intensive monitoring for toxicity (Heparin, Nitro, Insulin, Cardizem)? @ -None Were any procedures done? @ -None Diagnosis/symptom? @ -Lumbar radiculopathy Acute, or Chronic, or Acute on Chronic? @ -Acute Uncomplicated (without systemic symptoms) or Complicated (systemic symptoms)? @ -Uncomplicated Side effects of treatment? @ -None Exacerbation, Progression, or Severe Exacerbation] @ -Not applicable Poses a threat to life or bodily function? @ -No Return precautions reviewed in depth, the patient is instructed to return to the emergency department with any new, worsening, or concerning symptoms. Patient verbalized understanding. This case was discussed in detail with the attending ED physician, Dr. Alaniz. Presentation, findings, and treatment plan discussed in detail as well. Disposition Clinical Impression: Lumbar radiculopathy, right Disposition: HOME SELF-CARE Instructions (If sedation given, give patient instructions): Lumbar Radiculopathy (ED), Back Pain (ED) Additional Instructions: Return to the emergency department with any new, worsening, or concerning symptoms. Try taking the Norflex instead of the Flexeril to see if it is more effective. Otherwise continue with your pain medications as prescribed. Follow up with your primary care provider in 1-2 days. Prescriptions: Orphenadrine [Norflex] 100 mg PO Q12H PRN #20 tab PRN Reason: Pain Is patient prescribed a controlled substance at d/c from ED?: No Referrals: Michael Patton MD [Primary Care Provider] - 1-2 days
[2023-03-13 07:59] VITALS: RESP 15
[2023-03-13] MEDS ORDERED: DEXAMETHASONE SOD PHOSPHATE 10 MG/ML 1 ML VIAL IVP STA (08:36)
[2023-03-13 08:38] VITALS: BP 143/84; PULSE 84
== END 2023-03-13 08:57 | disposition home or self-care (01) ==
LOC: EC 05:30
DX: M54.16 Radiculopathy, lumbar region (principal); M19.90 Unspecified osteoarthritis, unspecified site; Z88.8 Allergy status to other drugs, medicaments and biological substances; Z79.899 Other long term (current) drug therapy
CPT/HCPCS: 99283; 96374; 96375 ×2; J2360; J3360; J1885

== ENCOUNTER 2023-03-13 17:02 | Emergency (ER) | payer BC ==
[2023-03-13 17:35] VITALS: TEMP 98.3
[2023-03-13] MEDS ORDERED: LIDOCAINE 5% PATCH TOPICAL STA (19:49)
[2023-03-13] MEDS ORDERED: KETOROLAC 15 MG/ML 1 ML VIAL IM STA ×2 (19:53→20:50)
[2023-03-13] MEDS ORDERED: ORPHENADRINE 30 MG/ML 2 ML VIAL IM STA (19:53)
[2023-03-13 20:29] VITALS: BP 135/68; RESP 20
--- NOTE | 2023-03-13 20:53 | ED ---
General Adult HPI - General Chief complaint: Back Pain/Injury Stated complaint: R side of body pain, here earlier today Time Seen by Provider: 03/13/23 18:29 Source: patient, RN notes reviewed Mode of arrival: ambulatory Limitations: no limitations - History of Present Illness Initial comments: 37-year-old female presents to the emergency department chief complaint of right buttock pain radiating down her right leg. Patient was seen in our facility this morning and last night for the same thing. She states she has had temporary improvement with the regimen at those times. She states that she is unable a comfortable at home and feels like her leg is spasming. The pain is worse with walking which states that she is unable to get comfortable in any position. She is able to walk. She has not had any new trauma or injury. She is still not having any red flag symptoms including loss of bowel or bladder function, urinary retention, saddle anesthesia, fever, chills. - Related Data Home Medications Medication Instructions Recorded Confirmed Celecoxib [CeleBREX] 100 mg PO BID PRN 10/17/21 11/22/21 Dextroamphetamine/Amphetamine 15 mg PO DAILY 11/19/21 11/22/21 [Adderall] Previous Rx's Medication Instructions Recorded HYDROcodone/APAP 7.5-325MG [[place] 1 tab PO Q4-6H PRN #30 tab 11/22/21 7.5-325] predniSONE [Deltasone] 40 mg PO DAILY #8 tab 08/18/22 predniSONE 60 mg PO DAILY #30 tab 02/12/23 HYDROcodone/APAP 7.5-325MG [[place] 1 tab PO Q6HR PRN 3 Days #12 tab 03/06/23 7.5-325] predniSONE 50 mg PO DAILY 5 Days #5 tablet 03/06/23 Lidocaine 5% Patch [Lidoderm 5% 1 patch TOPICAL DAILY #30 patch 03/13/23 Patch] Orphenadrine [Norflex] 100 mg PO Q12H PRN #20 tab 03/13/23 diazePAM [Valium] 5 mg PO TID PRN 3 Days #9 tab 03/13/23 predniSONE [Deltasone] 20 mg PO BID #10 tab 03/13/23 Allergies Allergy/AdvReac Type Severity Reaction Status Date / Time nirmatrelvir Allergy Anaphylaxis Verified 03/13/23 17:35 [From Paxlovid (EUA)] ritonavir Allergy Anaphylaxis Verified 03/13/23 17:35 [From Paxlovid (EUA)] Review of Systems ROS Statement: Those systems with pertinent positive or pertinent negative responses have been documented in the HPI. ROS Other: All systems not noted in ROS Statement are negative. Past Medical History Past Medical History: Osteoarthritis (OA) Additional Past Medical History / Comment(s): INJURY TO LT ANKLE 10/17/21 History of Any Multi-Drug Resistant Organisms: None Reported Past Surgical History: Cholecystectomy, Orthopedic Surgery Additional Past Surgical History / Comment(s): right knee SX, Past Anesthesia/Blood Transfusion Reactions: No Reported Reaction Past Psychological History: ADD/ADHD Smoking Status: Never smoker Past Alcohol Use History: Occasional Past Drug Use History: None Reported - Past Family History Mother Family Medical History: No Reported History General Exam Limitations: no limitations General appearance: alert, in no apparent distress Head exam: Present: atraumatic, normocephalic, normal inspection Eye exam: Present: normal appearance. Absent: scleral icterus, conjunctival injection, periorbital swelling ENT exam: Present: normal exam, mucous membranes moist Neck exam: Present: normal inspection Respiratory exam: Present: normal lung sounds bilaterally. Absent: respiratory distress, wheezes, rales, rhonchi, stridor Cardiovascular Exam: Present: regular rate, normal rhythm, normal heart sounds. Absent: systolic murmur, diastolic murmur, rubs, gallop, clicks GI/Abdominal exam: Present: soft, normal bowel sounds. Absent: distended, tenderness, guarding, rebound, rigid Extremities exam: Present: normal inspection, full ROM, tenderness (Right buttock), normal capillary refill, other (DP and PT pulses 2+). Absent: pedal edema, joint swelling, calf tenderness Back exam: Present: normal inspection. Absent: CVA tenderness (R), CVA tenderness (L), muscle spasm, paraspinal tenderness, vertebral tenderness Neurological exam: Present: alert, oriented X3 Psychiatric exam: Present: normal affect, normal mood, other (tearful) Skin exam: Present: warm, dry, intact, normal color. Absent: rash Course Vital Signs 03/13/23 03/13/23 03/13/23 17:33 20:00 21:54 Temperature 98.3 F 98.3 F Pulse Rate 110 H 93 68 Respiratory 22 20 20 Rate Blood Pressure 163/99 135/68 135/68 O2 Sat by Pulse 99 99 99 Oximetry Medical Decision Making - Medical Decision Making Was pt. sent in by a medical professional or institution (JOE Cabral, PRODUCT DESIGN ENGINEER, urgent care, hospital, or care home...) When possible be specific @ -No Did you speak to anyone other than the patient for history (EMS, parent, family, police, friend...)? What history was obtained from this source @ -No Did you review nursing and triage notes (agree or disagree)? Why? @ -I reviewed and agree with nursing and triage notes Were old charts reviewed (outside hosp., previous admission, EMS record, old EKG, old radiological studies, urgent care reports/EKG's, care home records)? Report findings @ -Records from this morning and yesterday were reviewed Differential Diagnosis (chest pain, altered mental status, abdominal pain women, abdominal pain men, vaginal bleeding, weakness, fever, dyspnea, syncope, headache, dizziness, GI bleed, back pain, seizure, CVA, palpatations, mental health, musculoskeletal)? @ -Differential Back Pain: Strain, zoster, cauda equina syndrome, epidural abscess, vertebral osteomyelitis, discitis, fracture, subluxation, disc herniation, DJD, spinal stenosis, dissection, AAA, pancreatitis, peptic ulcer disease, pyelonephritis, kidney stone, this is not meant to be an all-inclusive list. EKG interpreted by me (3pts min.). @ -None X-rays interpreted by me (1pt min.). @ -None done CT interpreted by me (1pt min.). @ -None done U/S interpreted by me (1pt. min.). @ -None done What testing was considered but not performed or refused? (CT, X-rays, U/S, labs)? Why? @ -Imaging was considered but patient did not have any new trauma or injury and does not have any red flag symptoms What meds were considered but not given or refused? Why? @ -None Did you discuss the management of the patient with other professionals (pro fessionals i.e. JOE Cabral, PRODUCT DESIGN ENGINEER, lab, RT, psych nurse, social media manager, lawyer real estate, teacher, information management officer, upper caser)? Give summary @ -No Was smoking cessation discussed for >3mins.? @ -No Was critical care preformed (if so, how long)? @ -No Were there social determinants of health that impacted care today? How? (Homelessness, low income, unemployed, alcoholism, drug addiction, transportation, low edu. Level, literacy, decrease access to med. care, fci, rehab)? @ -No Was there de-escalation of care discussed even if they declined (Discuss DNR or withdrawal of care, Hospice)? DNR status @ -No What co-morbidities impacted this encounter? (DM, HTN, Smoking, COPD, CAD, Cancer, CVA, ARF, Chemo, Hep., AIDS, mental health diagnosis, sleep apnea, morbid obesity)? @ -None Was patient admitted / discharged? Hospital course, mention meds given and route, prescriptions, significant lab abnormalities, going to OR and other pertinent info. @ -Discharge. Patient presented to emergency department chief complaint of right buttock pain radiating down her right leg. She was seen in our emergency department this morning and last night for the same complaint. She was given Toradol, Norflex, lidocaine patch. She reported some improvement in her pain at that time. Patient was evaluated by my attending Dr. Beauchamp who recommended another short course of steroids, Valium, and better pain control while in the ED. Patient was agreeable with this plan and prescriptions were sent to her pharmacy. Patient is to keep her follow-up appointment with her primary care provider and her appointment for her MRI. Return precautions discussed with patient. Patient stable at time of discharge Undiagnosed new problem with uncertain prognosis? @ -No Drug Therapy requiring intensive monitoring for toxicity (Heparin, Nitro, Insulin, Cardizem)? @ -No Were any procedures done? @ -No Diagnosis/symptom? @ -Sciatica Acute, or Chronic, or Acute on Chronic? @ -Acute Uncomplicated (without systemic symptoms) or Complicated (systemic symptoms)? @ -Uncomplicated Side effects of treatment? @ -No Exacerbation, Progression, or Severe Exacerbation? @ -No Poses a threat to life or bodily function? How? (Chest pain, [place], [place], pneumonia, PE, COPD, DKA, ARF, appy, cholecystitis, CVA, Diverticulitis, Homicidal, Suicidal, threat to staff... and all critical care pts) @ -No Disposition Clinical Impression: Sciatica Disposition: HOME SELF-CARE Condition: Stable Instructions (If sedation given, give patient instructions): Acute Low Back Pain (ED) Additional Instructions: Please cone picker medications and take as prescribed. Follow up with your primary care provider for MRI as scheduled. Return to the emergency department for development of symptoms that we discussed. Prescriptions: predniSONE [Deltasone] 20 mg PO BID #10 tab Lidocaine 5% Patch [Lidoderm 5% Patch] 1 patch TOPICAL DAILY #30 patch diazePAM [Valium] 5 mg PO TID PRN 3 Days #9 tab PRN Reason: Muscle Spasm Is patient prescribed a controlled substance at d/c from ED?: Yes If prescribed controlled substance>3 days was MAPS reviewed?: Prescribed <3 Days Referrals: Michael Patton MD [Primary Care Provider] - 1-2 days Time of Disposition: 21:41
[2023-03-13] MEDS ORDERED: HYDROmorphone 1 MG/ML 1 ML SYRINGE IM STA (21:30)
[2023-03-13 21:55] VITALS: PULSE 68
== END 2023-03-13 21:55 | disposition home or self-care (01) ==
LOC: EC 17:02
DX: M54.31 Sciatica, right side (principal)
CPT/HCPCS: 99283; 96372 ×4; J2360; J1170; J1885

== ENCOUNTER → 2023-03-18 | Outpatient (CLI) | payer BC ==
--- NOTE | 2023-03-18 13:45 | MR ---
EXAMINATION TYPE: MR lumbar spine wo con DATE OF EXAM: 03/18/2023 8:02 AM COMPARISON: 03/06/2023. CLINICAL INDICATION: Female, 37 years old with history of M54.31; Lower back pain, radiates down righ t leg. TECHNIQUE: Multi planar, multi sequence imaging was performed utilizing: T1-weighted, T2-weighted, a nd turbo inversion recovery imaging of the lumbar spine. IV Contrast: None. FINDINGS: Alignment: The lumbar vertebral bodies have preserved heights and alignment. Cord: The conus medullaris and the distal spinal cord appear unremarkable with regards to their signa l intensity and morphology. Bones/Discs: Bone signal is within normal limits. No abnormal bony edema on inversion recovery sequen elise. Multilevel disc degenerative is noted and most pronounced at the . Intervertebral disc signal is maintained. T12-L1: No evidence of significant spinal canal stenosis or neural foraminal stenosis. L1-L2: No evidence of significant spinal canal stenosis or neural foraminal stenosis. L2-L3: No evidence of significant spinal canal stenosis or neural foraminal stenosis. L3-L4: Disc extrusion involving the right central and right subarticular region which impresses upon the forming nerves. 13 mm inferior migration of disc material. Spinal canal is grossly patent. The ne ural foramen are grossly patent. L4-L5: Central disc protrusion without significant spinal canal or neural foraminal stenosis. L5-S1: Disc bulge and facet joint arthropathy result in mild spinal canal and mild bilateral neural f oraminal stenosis. No significant spinal canal or neural foraminal stenosis in the remainder of the visualized levels. Other findings: None. IMPRESSION: 1. 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 There is inferior migration of disc material up tor 13 mm 2. L4-L5 central disc protrusion without significant spinal or neural foraminal stenosis.
== END | disposition home or self-care (01) ==
LOC: RADMRIMAIN 07:02
PROVIDERS: ATTEND Internal Medicine
DX: M51.26 Other intervertebral disc displacement, lumbar region (principal); M54.31 Sciatica, right side
CPT/HCPCS: 72148

== ENCOUNTER 2023-06-09 06:22 | Day surgery (SDC) | payer BC ==
[2023-06-04 08:41] VITALS: BMI 41.3
[2023-06-09 07:11] VITALS: RESP 16; TEMP 97.3
[2023-06-09] MEDS ORDERED: methylPREDNISolone ACETATE 80 MG/ML 1 ML VIAL ONE (07:24)
[2023-06-09] MEDS ORDERED: IOPAMIDOL M200 10 ML VIAL ONE (07:24)
[2023-06-09] MEDS ORDERED: LACTATED RINGERS 1,000 ML IV SCH (07:30)
--- NOTE | 2023-06-09 07:34 | P.PCN ---
Date of Procedure: 06/09/23 Description of Procedure: Procedure: 1. L3-L4 Epidural steroid injection under fluoroscopic guidance # 1 , 2. Lumbar epidurogram PREOPERATIVE DIAGNOSIS: Lumbar degenerative disc disease, and Lumbar radiculopathy. POSTOPERATIVE DIAGNOSIS: Lumbar degenerative disc disease, and Lumbar radiculopathy. SURGEON: Rpua Ramirez ANESTHESIA: Local with 1% lidocaine, and IV sedation: EBL: None. Specimen removed: None Fluoroscopic image: saved to electronic medical records PROCEDURE INDICATION: The patient had history of Lumbar degenerative disc disease and Lumbar radiculopathy. Failed to conservative therapy. Presented for epidural steroid injection. PROCEDURE DESCRIPTION: The patient was seen and identified in the preoperative area. Risks, benefits, complications, and alternatives were discussed with the patient. The patient agreed to proceed with the procedure and signed the consent. Vital signs were stable. Patient was taken to the procedure area, and time out was completed. The patient was placed in the prone position on procedure table and a pillow was placed under the abdomen to reduce lumbar lordosis. The lumbosacral area was prepped and draped in the usual sterile fashion. Critical pause was taken. Vital signs were closely monitored during the procedure. Using anterior-posterior fluoroscopy, the L3-L4 interlaminar space was identified, and skin and deeper tissues were localized with 1% lidocaine. Using anterior-posterior fluoroscopy, lateral fluoroscopy, and [id number] technique, a 20 gauge 3.5 Tuohy epidural needle entered the epidural space. After negative aspiration of CSF and blood with no paresthesias, 2 ml of [id number] contrast dye was injected and an excellent epidurogram was seen. Again after negative aspiration of CSF and blood with no paresthesias, 8 mL of block solution was injected into the epidural space. Block solution contained 80 mg of Depo-Medrol, and 6 mL of preservative-free normal saline. Needle was withdrawn intact, skin was cleansed, and bandages were applied. COMPLICATIONS: None. DISPOSITION / PLANS: The patient was placed in a supine position and transferred to the recovery area in a stable condition for observation. Patient was discharged from the recovery room after meeting discharge criteria. Home discharge instructions given to the patient by the staff. The patient was reexamined prior to discharge. The patient will schedule a follow up in the clinic in 4 weeks.
[2023-06-09 07:40] VITALS: BP 134/77; PULSE 79
--- NOTE | 2023-06-09 07:58 | FL ---
Intraoperative/procedural fluoroscopic services were provided for lumbar epidural steroid injection. Total fluoroscopy time is 5.1 seconds with a total of 2 submitted images to PACS. Total DAP [id number] m Gym2. Please see the operative note for further details.
== END 2023-06-09 07:50 | disposition home or self-care (01) ==
LOC: ORPAIN 06:22
DX: M51.16 Intervertebral disc disorders with radiculopathy, lumbar region (principal); Z90.49 Acquired absence of other specified parts of digestive tract; Z98.890 Other specified postprocedural states; Z91.048 Other nonmedicinal substance allergy status; Z79.899 Other long term (current) drug therapy
CPT/HCPCS: 81025; 62323; J1040; Q9966

== ENCOUNTER → 2023-08-06 | Outpatient (CLI) | payer BC | END | disposition home or self-care (01) | LOC: LABPAT 09:51 | PROVIDERS: ATTEND Orthopaedic Surgery | DX: Z01.812 Encounter for preprocedural laboratory examination (principal); Z22.322 Carrier or suspected carrier of Methicillin resistant Staphylococcus aureus; M51.26 Other intervertebral disc displacement, lumbar region | CPT/HCPCS: 86850; 86900; 86901; 87070; 93005 ==

== ENCOUNTER → 2023-08-06 | Outpatient (CLI) | payer BC ==
[2023-08-06 15:38] LABS: HCT 41.6 % (37.2-46.3); HGB 13.5 g/dL (12.0-15.0); MCH 29.9 pg (27.0-32.0); MCHC 32.5 g/dL (32.0-37.0); MCV 92.2 FL (80.0-97.0); Mean Platelet Volume 8.9 FL (9.5-12.2); NRBC Per 100 WBC 0 X 10*3/uL (0.00-0.01); Platelet Count 349 X 10*3/uL (140-440); RBC 4.51 X 10*6/uL (4.10-5.20); RDW 13.1 % (11.5-14.5); WBC 6.36 X 10*3/uL (4.50-10.00)
[2023-08-06 15:39] LABS: Basophils # (A) 0.06 X 10*3/uL (0.00-0.10); Basophils % (A) 0.9 %; Eosinophils # (A) 0.06 X 10*3/uL (0.04-0.35); Eosinophils % (A) 0.9 %; Lymphocytes # (A) 2.89 X 10*3/uL (0.90-5.00); Lymphocytes % (A) 45.4 %; Monocytes # (A) 0.59 X 10*3/uL (0.20-1.00); Monocytes % (A) 9.3 %; Neutrophils # (A) 2.75 X 10*3/uL (1.80-7.70); Neutrophils % (A) 43.3 %
[2023-08-06 16:10] LABS: ALT 48 U/L (8-44); AST 36 U/L (13-35); Albumin/Globulin Ratio 1.48 Ratio (1.60-3.17); Alkaline Phosphatase 77 U/L (41-126); BUN/Creat Ratio 13.33 Ratio (12.00-20.00); Calcium 9.3 mg/dL (8.7-10.3); Carbon Dioxide 27.8 mmol/L (21.6-31.8); Chloride 103 mmol/L (96-109); Globulin 2.7 g/dL (1.6-3.3); Glucose 89 mg/dL (70-110); Potassium 4.2 mmol/L (3.5-5.5); Sodium 140 mmol/L (135-145); Total Bilirubin 0.3 mg/dL (0.3-1.2); Total Protein 6.7 g/dL (6.2-8.2)
[2023-08-06 19:11] LABS: INR 0.99 sec (0.93-1.11); Prothrombin Time 10.7 sec (9.9-11.9)
== END | disposition home or self-care (01) ==
LOC: LABWHC1 09:53
PROVIDERS: ATTEND Internal Medicine
DX: Z01.818 Encounter for other preprocedural examination (principal)
CPT/HCPCS: 36415; 80053; 85025; 85610; 93005

== ENCOUNTER 2023-08-13 10:28 | Day surgery (SDC) | payer BC ==
[2023-08-10 11:03] VITALS: BMI 49.8
--- NOTE | 2023-08-13 06:52 | P.HPOR ---
History of Present Illness H&P Date: 08/06/23 .D:Date: 08/06/23 : 09:28am .T:Title: [facility] Spine Surgery Risk Review Ms. Saunders is presenting for evaluation of low back and right leg pain, right lower extremity numbness and tingling. It was my pleasure to have seen and examined Ms. Saunders. In our visit today we have had a chance to go over subjective complaints, physical examination findings and treatments including the natural course history without intervention and various interventional options. The patients imaging demonstrates: XRay Lumbar Multiview (AP, Lateral, Flexion, Extension) with AP pelvis; 5 views taken at [facility] on 04/10/23: Moderate degenerative changes with flattening of the normal lordosis with mild curvature to the left. Multilevel diminished disc height. Vertebral body heights are preserved. No acute osseous abnormalities. AP Pelvis: The visualized sacrum and iliac wings are within normal limits. [facility] of [facility]: IMPRESSION: 1. 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 There is inferior migration of disc material up tor 13 mm 2. L4-L5 central disc protrusion without significant spinal or neural foraminal stenosis. On physical exam, Ms. Saunders demonstrates: an ache-like, burning pain throughout the low back that radiates down into the right lower extremity. The patient states that her right leg pain is associated with numbness and tingling. She notes that her symptoms are exacerbated by prolonged activity, such as walking and standing. The patient reports experiencing moderate to severe sleep disturbances related to her ongoing pain and associated symptoms. I have explained to the patient that as their condition progresses it will cause further neurological deficits and eventual paralysis. Based on the patients imaging, physical exam, and the rapid progression and disabling nature of their symptoms, at this time I recommend surgery in the form of a: Right-sided MIS microdiscectomy at L3-4 . I discussed the risk and benefits of this procedure at length with Ms. Saunders. The patient agreed to considered pursuing the procedure abovementioned. Prior to surgery, she should follow up with her PCP (Cardio, ID, IM etc) for clearance. Questions were invited and answered, and the patient wishes to proceed as outlined below. Currently, I am recommendin.Right-sided MIS microdiscectomy at L3-4 2.Review of surgical risks and benefits as well as an educational packet on the proposed surgical procedure. Risks: All surgical procedures come with inherent risks, including those related to positioning, anesthesia, intraoperative findings, and postoperative complications. It is important to understand that surgery does not come with any guarantee of a successful outcome as complications and adverse events are always possible. The patient was given a handout in office today discussing the surgical procedure and risks associated with the intervention, both of which were discussed with the patient. These risks include but are not limited to the following: * Experiencing same, different or even worse symptoms in back, neck, arms, or legs compared to before surgery. Requiring further surgery or other forms of treatment presently or at some time in the future at same or other levels of the intended spine surgery. On an extreme but fortunately relatively rare basis severe complication such as blindness, stroke, heart attack, temporary and/or permanent nerve injury, paralysis, coma, or may occur, sometimes without known explanation. Surgical complications may include but are not limited to risk of infection, fluid accumulation in the surgical dissection site, including a seroma or hematoma, that requires additional surgery, wound drainage, bleeding, new numbness or weakness, vision changes/loss, spinal fluid leakage, non-healing and/or infected incision, headaches, difficulty or inability to swallow, hoarseness, hemopneumothorax, pneumothorax, impotence, retrograde ejaculation, vaginal dryness; injury to nerves, spinal cord, blood vessels, lymphatics or other vital organs (i.e., bowel injury, injury to the great vessels); heterotopic bone formation; complications related to the hardware such as screws, rods, cages including misplaced hardware, device failure, instrum entation at the wrong spine level, hardware fracture/breakage, or hardware loosening; vertebral failure of the spinal column above or below the newly placed hardware; retained surgical instrumentations or devices and the need for further surgery. * Medical risks of the planned spine surgery include but are not limited to generalized Infections to the whole body or local areas outside of the surgical site (sepsis), heart attack, bleeding, anaphylaxis, meningitis, seizure, epilepsy, hearing loss, burn kumar, laceration of the head or other areas of the body, bruising, hypersensitivity of the skin, bladder over distension; allergic reaction; shoulder injury related to positioning; fat, blood and air clots to other areas of the body like heart, lungs, brain; failure of internal organs such as lungs, kidneys, liver and excessive bleeding. If blood transfusions are necessary, note that transfusions may cause intolerance reactions such as anaphylaxis or other complex reactions. Despite best efforts, the results of spine surgery might not heal in terms of bone, soft tissues such as skin, fascia, ligaments, and joints. Additionally, in order to achieve best possible results, spine surgery may be carried out beyond the initially planned levels and involve decompression, fusion including insertion of hardware at levels other than the original intended area of surgical interest change some portions of the procedure in order to ensure the best possible outcomes. With spine surgery and spinal fusion, there are different off label uses of instrumentation (devices, implants and hardware) as well as biological substances (bone morphogenic proteins, demineralized bone matrix) as well as using extra bone from allograft sources (i.e. cadaver bone) or autograft (iliac crest bone, ribs, or the spine itself). The patient has been given information about these practices and their inherent risks and benefits. Formerly [facility] is an educational center that serves as a training facility for neurosurgical and orthopedic TECHNOLOGY PROJECT MANAGER and Nursing students. Physician assistants are medically trained surgical providers who function in the outpatient, inpatient, and operating room setting under the direct supervision of the attending surgeon. Formerly [facility] has multiple operating rooms with single and overlapping rooms running daily. They currently function under the required guidelines as produced by the [facility] Finance Committee with regards to the overlapping rooms and will continue to comply with changes to this policy as they occur. The requirements include and are complied with as follows: (1) the critical portions of the overlapping rooms will not occur at the same time, (2) the attending physician will be physically present during the critical portions of the procedure and immediately available during the entire case, and (3) a back-up attending is designated should the primary attending not be immediately available. The patient has had a chance to review all the listed information, has been given print outs detailing this information, and has had all his/her questions answered to their satisfaction. It was my pleasure to have seen and examined Ms. Saunders. In our visit today we have had a chance to go over my understanding of our patient's current condition, the natural course history without intervention and various interventional options. Questions were invited and answered, and the patient wishes to proceed as outlined above. I have seen and examined the patient for 25 minutes and we have spent more than 50% of the time in repeat and detailed counseling about the patient's condition, its natural course history with out and as much as can be predicted with surgery and re-review of various surgical treatment options. In conclusion, Ms. Saunders and requested we proceed with the above suggested surgery and are willing to accept risks and limitations of the suggested surgery as nature of the disease process and our best attempts at treatment for the condition. Thank you again for allowing us to be part of your patient's care. Please don't hesitate to contact me if you have any further questions. Follow- up: Post procedure Patient Education (Informational booklet, instructions, etc) given at today's appointment: Yes .ED:Patient Education: Y Medications Reviewed: yes Attestation: In our visit today Ms. Saunders and I have had a chance to go over my understanding of the patient's current condition, the natural course history without intervention and various interventional options. Questions were invited and answered, and the patient wishes to proceed as outlined above. I will be sure to keep you updated afterMs. Saunders returns here for further follow-up. Thank you again for your referral. Please do not hesitate to contact me if you have any further questions. Signed and authenticated by: Jono Espinal [facility] [address] [place] [id number] This message is confidential, intended only for the named recipient(s) and may contain information that is privileged or exempt from disclosure under applicable law. If you are not the intended recipient(s), you are notified that the dissemination, distribution or copying of this information is strictly prohibited. If you received this message in error, please notify the sender then delete this message. Patient verbalizes understanding of the information discussed. The above note was initiated by Hermila Clark, physician recording physical therapist assistant for Dr. Jono Noguera. This note has been reviewed by Dr. Noguera, who has made his personal changes and impressions for this document. CC: Michael Patton DO. # SIGNED BY Jono Noguera ([facility])08/07/2023 08:04AM Past Medical History Past Medical History: Osteoarthritis (OA) Additional Past Medical History / Comment(s): Back pain. History of Any Multi-Drug Resistant Organisms: None Reported Past Surgical History: Cholecystectomy, Orthopedic Surgery Additional Past Surgical History / Comment(s): Right knee surgery, left ankle surgery, pain procedure. Past Anesthesia/Blood Transfusion Reactions: Motion Sickness, Postoperative Nausea & Vomiting (PONV) Past Psychological History: ADD/ADHD Additional Psychological History / Comment(s): ADHD. Smoking Status: Never smoker Past Alcohol Use History: Occasional Past Drug Use History: None Reported - Past Family History Mother Family Medical History: No Reported History Medications and Allergies Home Medications Medication Instructions Recorded Confirmed Type Dextroamphetamine/Amphetamine 15 mg PO DAILY 11/19/21 08/10/23 History [Adderall] Liraglutide [Saxenda] 3 mg SQ DAILY 06/04/23 08/10/23 History Progesterone, Micronized 200 mg PO DIRECTED 08/10/23 08/10/23 History [Progesterone] Allergies Allergy/AdvReac Type Severity Reaction Status Date / Time nirmatrelvir Allergy Anaphylaxis Verified 08/10/23 10:36 [From Paxlovid (EUA)] ritonavir Allergy Anaphylaxis Verified 08/10/23 10:36 [From Paxlovid (EUA)] Physical Examination Osteopathic Statement: *. No significant issues noted on an osteopathic s tructural exam other than those noted in the History and Physical/Consult.
[~2023-08-13 10:28] MED LIST changes: +ACETAMINOPHEN TAB 500 MG TAB PO PRN; +GABAPENTIN 300 MG CAP PO PRN; +HYDROmorphone 0.5 MG/0.5 ML SYRINGE IVP PRN; -LACTATED RINGERS 1,000 ML IV SCH; -MIDAZOLAM 2 MG/2 ML VIAL IV PRN; -ONDANSETRON 4 MG/2 ML VIAL IVP ONE; +ONDANSETRON 4 MG/2 ML VIAL IVP PRN; -Pre Op ABX Message 1 EACH MISC MISCELLANE ONE; +TRANEXAMIC 1,000 MG/100ML-NACL 1,000 MG in SALINE 1 100ML.BAG IVPB PRN; +ceFAZolin 3 GM in SODIUM CHLORIDE 0.9% 100 ML IVPB PRN
[2023-08-13] MEDS: LACTATED RINGERS 1,000 ML IV SCH (11:00)
[2023-08-13 11:11] LABS: Glucose,Whole Blood 96 mg/dL (70-110)
[2023-08-13] MEDS ORDERED: SCOPOLAMINE 1 MG/72 HR PATCH TRANSDERM ONE (11:15)
[2023-08-13] MEDS ORDERED: fentaNYL (PF) 50 MCG/ML 2 ML AMP ONE (12:45)
[2023-08-13] MEDS ORDERED: MIDAZOLAM 2 MG/2 ML VIAL ONE (12:45)
[2023-08-13] MEDS ORDERED: PROPOFOL 10 MG/ML 20 ML VIAL IV ONE (12:45)
[2023-08-13] MEDS ORDERED: TRANEXAMIC 1,000 MG/100ML-NACL PREMIX BAG ONE (12:45)
[2023-08-13] MEDS ORDERED: ROCURONIUM 10 MG/ML (5 ML VIAL) IV ONE (12:45)
[2023-08-13] MEDS ORDERED: GLYCOPYRROLATE 0.2 MG/ML 2 ML VIAL ONE (12:45)
[2023-08-13] MEDS ORDERED: NEOSTIGMINE 1 MG/ML 10 ML VIAL ONE (12:45)
[2023-08-13] MEDS ORDERED: diphenhydrAMINE 50 MG/ML 1 ML VIAL ONE (12:45)
[2023-08-13] MEDS ORDERED: SUCCINYLCHOLINE CHLORIDE 200 MG/10 ML VIAL IV ONE (12:45)
[2023-08-13] MEDS ORDERED: LIDOCAINE 1% INJ 10MG/ML (20 ML MDV) ONE (12:45)
[2023-08-13] MEDS ORDERED: HYDROmorphone (PF) 1 MG/ML ONE (12:45)
[2023-08-13] MEDS ORDERED: LIDOCAINE 2%-EPI 1:100,000 20 ML VIAL SQ ONE (12:50)
[2023-08-13] MEDS ORDERED: THROMBIN (BOVINE) 5,000 UNIT VIAL TOPICAL ONE (12:50)
[2023-08-13] MEDS ORDERED: GELATIN SPONGE,ABSORB (LARGE) 1 EACH SPONGE TOPICAL ONE (12:50)
[2023-08-13] MEDS ORDERED: CYCLOBENZAPRINE 5 MG TAB PO PRN (15:08)
[2023-08-13] MEDS ORDERED: SENNOSIDES-DOCUSATE SODIUM 1 EACH TAB PO PRN (15:08)
[2023-08-13] MEDS ORDERED: HYDROmorphone 0.5 MG/0.5 ML SYRINGE IVP PRN (15:08)
[2023-08-13] MEDS ORDERED: HYDROmorphone 1 MG/ML 1 ML SYRINGE IVP PRN (15:08)
[2023-08-13] MEDS ORDERED: HYDROcodone/APAP 5-325MG 1 EACH TAB PO PRN (15:08)
[2023-08-13] MEDS ORDERED: MAGNESIUM HYDROXIDE 2,400 MG/30 ML CUP PO PRN (15:08)
--- NOTE | 2023-08-13 16:09 | FL ---
Intraoperative/procedural fluoroscopic services were provided. Total fluoroscopy time is 28.4 seconds with a total of 6 submitted images to PACS. Please see the operative/procedural note for further det ails. DAP: 13.210 mGym2 Gycm2
[2023-08-13] MEDS ORDERED: ONDANSETRON 4 MG/2 ML VIAL IVP ONE (16:40)
[2023-08-13] MEDS: ACETAMINOPHEN TAB 325 MG TAB PO SCH ×2 (18:22→23:35)
[2023-08-13] MEDS: HYDROcodone/APAP 10-325MG 1 EACH TAB PO PRN (18:22)
[2023-08-14] MEDS: LACTATED RINGERS 1,000 ML IV SCH (00:39)
[2023-08-14] MEDS: HYDROcodone/APAP 10-325MG 1 EACH TAB PO PRN ×2 (02:25→07:59)
[2023-08-14] MEDS: ACETAMINOPHEN TAB 325 MG TAB PO SCH (05:28)
[2023-08-14 08:27] VITALS: BP 137/83; PULSE 80; RESP 18; TEMP 97.9
--- NOTE | 2023-08-14 09:30 | P.PN ---
Subjective Progress Note Date: 08/14/23 Principal diagnosis: L3-L4 HNP Right lower extremity radiculopathy Mechanical low back pain Patient seen and examined this morning. Patient was resting currently in bed. She states she has been ambulatory within room with standby assist. Patient is requesting a rolling walker at this time due to having multiple animals at home. Prescription has been placed in chart for a rolling walker. Surgical dressing to the lumbar spine is clean dry and intact, no active drainage. Patient does report improvement in her right lower extremity radiculopathy. She states she is looking forward to going home later today. No acute concerns. Objective - Vital Signs Vital signs: Vital Signs Temp 97.7 F 08/13/23 20:15 Pulse 105 H 08/13/23 20:39 Resp 20 08/13/23 20:15 BP 119/68 08/13/23 20:39 Pulse Ox 92 L 08/13/23 20:15 FiO2 Intake & Output 08/13/23 08/14/23 08/14/23 18:59 06:59 18:59 Intake Total 1100 Output Total 25 Balance 1075 Weight 154.6 kg Intake: IV 1100 Output: Estimated Blood Loss 25 Other: # Voids 1 - Exam Physical Examination General: The patient is awake and alert, in no acute distress Skin: Skin is warm and dry with no obvious rashes or lesions. Surgical incision to the right of the lumbar spine, dressing is clean dry and intact. Eye: Pupils are equal, round and reactive to light, extra-ocular movements are intact; there is normal conjunctiva bilaterally. Neck: The neck is supple, there is no tenderness and ROM intact. Cardiovascular: There is a regular rate and rhythm. No murmur, rub or gallop is appreciated. Respiratory: Lungs are clear to auscultation, respirations are non-labored, breath sounds are equal. Gastrointestinal: Soft, non-distended, non-tender abdomen. Back: There is no tenderness to palpation in the midline, paralumbar, parathoracic or buttocks region. There is no obvious deformity . Musculoskeletal: ROM limited secondary to pain and stiffness from surgical procedure. Muscle strength in all major muscle groups of bilateral upper extremities 5/5, bilateral lower extremities 4/5. Neurological: CN 2-12 intact. There are no obvious motor or sensory deficits. Movement and coordination equal and intact. Sensory exam to light touch intact C5-T1 and intact from L2-S1. Reflexes 2/4 in bilateral upper and lower extremities. Negative Hoffmans, babinski, and clonus signs. Psychiatric: Cooperative, appropriate mood & affect, normal judgment. Assessment and Plan Assessment: Postop day 1: L3-L4 right-sided MIS microdiscectomy L3-L4 HNP Right lower extremity radiculopathy Mechanical low back pain Plan: -Appreciate government operations consultant and team management. -Activity: Ambulate QID, OOB all meals, up and about, limit lifting bending twisting to less than 5 lbs. Use walker or cane if needed for stability. -Daily PT/OT, increase ambulation strength and balance. -Pain control: Adequate at this time -Meds: reviewed -GI ppx: senna -DVT PPX: Mechanical -Hygiene: Shower today. Maintain dressing clean and dry. Meticulous cleaning after BMs away from the incision site -Encourage IS 10x/hr -Dispo: Anticipate discharge home today *I reviewed and discussed this case with my attending Dr. Noguera, whom has reviewed this chart and films and is in agreement with assessment and plan of care as outlined above. I have personally seen and examined the patient, performed the documentation and the assessment and plan as written. Number of minutes spent on the visit: 15m.
--- NOTE | 2023-08-14 09:34 | P.DS ---
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 They underwent appropriate preoperative care and were willing to undergo the intended procedure. They underwent a successful L3-L4 right sided MIS microdiscectomy, were recovered appropriately and sent to the floor. While on the floor they worked with physical therapy, occupational therapy and nursing to enhance their recovery experience. Their pain was well controlled through their stay and they were started on appropriate medications, DVT ppx modalities, activity and dietary needs. Daily labs were monitored closely, and transfusions were only used when necessary. Medicine as well as other consulting services have made their input and have helped with our team approach and multidisciplinary care. PT milestones have been met and passed and they have made the recommendation of home for this patient and treating providers agree with this care path. The patient will be discharged home with appropriate medications, instructions and follow-up information and in stable condition. Patient Condition at Discharge: Good Plan - Discharge Summary Discharge Rx Participant: Yes New Discharge Prescriptions: New Gabapentin 300 mg PO TID #30 cap HYDROcodone/APAP 7.5-325MG [[place] 7.5-325] 1 tab PO Q6HR PRN #36 tab PRN Reason: Pain Sennosides/Docusate Sodium [Senna Plus 8.6-50 mg Softgel] 1 each PO DAILY #20 capsule cefaDROXiL [Duricef] 500 mg PO Q12HR 5 Days #10 cap Cyclobenzaprine [Flexeril] 5 mg PO TID #21 tablet No Action Dextroamphetamine/Amphetamine [Adderall] 15 mg PO DAILY Liraglutide [Saxenda] 3 mg SQ DAILY Progesterone, Micronized [Progesterone] 200 mg PO DIRECTED Discharge Medication List Dextroamphetamine/Amphetamine [Adderall] 15 mg PO DAILY 11/19/21 [History] Liraglutide [Saxenda] 3 mg SQ DAILY 06/04/23 [History] Progesterone, Micronized [Progesterone] 200 mg PO DIRECTED 08/10/23 [History] Cyclobenzaprine [Flexeril] 5 mg PO TID #21 tablet 08/13/23 [Rx] Gabapentin 300 mg PO TID #30 cap 08/13/23 [Rx] HYDROcodone/APAP 7.5-325MG [[place] 7.5-325] 1 tab PO Q6HR PRN #36 tab 08/13/23 [Rx] Sennosides/Docusate Sodium [Senna Plus 8.6-50 mg Softgel] 1 each PO DAILY #20 capsule 08/13/23 [Rx] cefaDROXiL [Duricef] 500 mg PO Q12HR 5 Days #10 cap 08/13/23 [Rx] Follow up Appointment(s)/Referral(s): Jono Noguera DO [Doctor of Osteopathic Medicine] - 08/27/23 10:45 am Patient Instructions/Handouts: *Surgery [facility] - (Anesthesia) Discharge Instructions Outpatient Surgery, Lumbar Discectomy (DC), Lumbar Discectomy (GEN) Activity/Diet/Wound Care/Special Instructions: Spine Discharge and Recovery Instructions Date of Surgery: 08/13/2023 Diagnosis: Low back pain; herniated disc L3-4 right side Procedure: L3-4 right-sided microdiscectomy; L3-4 laminectomy right side Medications: See medication list All medication refills should be obtained through your primary care doctor or your clinic spine surgeon. Please discuss prescription refills at your follow up appointment. Do not call the hospital for medication refills. Dressing: Leave your dressing in place for a total of 5 days post operatively. Then you may remove your dressing and leave open to air. Keep the area clean and if not able to keep area clean, then cover with sterile gauze and tape. Showering: You may shower 3 days after your procedure allowing soap and water to run over incision. Do not scrub. Do not soak. Blot dry. Follow up: Please confirm a follow up appointment with your surgeon 3 weeks post operatively. Please make an appointment to follow up with your PCP in 1-2 weeks after surgery for evaluation 3 phase, 3-week plan POST OP WEEKS 1-3 1. Lifting/carrying/pushing/pulling limited to less than 5 pounds. 2. Do not sit for longer than 15 minutes at one time. Get up and walk around. Prolonged sitting is NOT advised. If you lay down, see if you can tolerate laying down on you front (belly side) 3. Walk for periods of 15 minutes = 1 mile but no longer; do it multiple times times each day. 4. Ice your low back after activity. POST OP WEEKS 3-6 1. Lifting limited to less than 20 pounds. 2. Do not sit for longer than 30 minutes at a time. Frequently change positions. Use a sit-to stand workstation or take frequent breaks from sitting if you have returned to work. 3. Walk for 30 minutes each day. If possible, do these three or more times a day POST OP WEEKS 6+ At your 6-week appointment we will give you a physical therapy referral to focus on a core stabilization and strengthening program. You should also work on leg & buttock strengthening, hamstring & quadriceps stretching, and continue a low impact aerobic activity program such as swimming, walking, or riding a stationary bicycle. During the initial 6 weeks after your surgery, you are at the highest risk of re-injuring your spine. You should generally avoid BLTs (bending, lifting and twisting combination motions) and follow the above guidelines to reduce the chance of reinjury. You can anticipate post op appointments in our office at approximately 3 weeks and 6 weeks after your surgery. INCISION CARE: If your incision is not draining you do NOT need to cover it with a dressing. Keep your incision clean, dry and intact. In most cases, we apply skin glue, adrien or sutures to the incision at the time of surgery. This will be like a crust or have the appearance of a scab and will fall off in time on its own. The stitches or adrien need to be removed at 3 weeks post op appointment. You may begin to shower 3 days after surgery (this allows the glue to bishop well). However, please avoid scrubbing the incision site or peeling off any of the skin glue. This will ensure optimal healing of your incision. Also, during this time avoid soaking the incision area in water - this includes swimming pools, hot tubs or baths. No ointments, lotions or oils on the incision until your surgeon allows. Leave adrien, sutures or glue in place. Neurological dysfunction that comes on suddenly can also be a sign of a stroke. Below some common symptoms of a stroke are listed: B - balance difficulty such as sudden onset walking or leaning to one side - NEW E - eye problem such as sudden double vision or trouble seeing on one side - NEW F - Facial weakness or numbness on one side - NEW A - Arm or leg weakness or numbness on one side - NEW S - Slurred speech or difficulty with word finding - NEW T - Time is BRAIN! Call 911 as soon as you recognize these symptoms Diet: Consume a regular diet rich in vegetables and lean protein such as chicken or fish. You should consume in a ratio of approximately 20% fats|40% carbohydrates|40%protein. Vegetables, sweet potatoes, brown rice or quinoa are examples of good carbohydrates. Chips, white bread, cookies and sweets/sugar are examples of bad carbohydrates. Limit your bad carbs, go wild with good carbs. 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 (1) Get Active. Physical activity can help people lose weight, control high blood pressure and cholesterol, feel emotionally better, and sleep better. (2) Control Cholesterol. Avoid a diet high in saturated fat, trans fat, & cholesterol. Limit whole milk & cream, ice cream, butter, egg yolks, processed meats (like sausage and hot dogs), and fatty meats. Choose healthy foods that are low in saturated fat, trans fat and cholesterol which include: Fruits and vegetables, fiber rich grain products (like whole grain pasta and brown rice), lean meat such as chicken, fish, nuts, seeds, and legumes. (3) Eat Better. Eat small portions. Shop at the grocery with a list and do not stray from it. Tips for a healthy diet include: Limit sodium intake to less than 1500mg daily, avoid prepackaged, processed, and fast foods, choose a diet rich in fruits, vegetables, and whole grain, high fiber foods, and limit saturated & cholesterol in your diet. (4) Manage Blood Pressure. If you have high blood pressure, you should have a cuff at home so that you can check your blood pressure regularly. Be sure you have a good cuff. An arm one is generally better than a wrist one. Bring the cuff to a doctor's appointment to validate that the measurements that your cuff are taking are accurate. Take your blood pressure twice daily when you are sitting down and relaxing. Record the numbers in a log and bring this log with you to your doctors' appointments. (5) Lose Weight if your BMI is above 25. A healthy BMI is between 19-25. To calculate Your BMI, you may use a Standard BMI Calculator on the NIH BMI website: <www.nhlbi.nih.gov/guidelines/obesity/BMI/bmicalc.htm>. Weigh oneself daily. If you are overweight, set a goal to lose weight. A pound a week loss if needed is a good target. (6) Reduce Blood Sugar. Limit foods and liquids with "added sugars." (Added sugars include sucrose, fructose, glucose, maltose, dextrose, high fructose corn syrup, corn syrup, concentrated fruit juice and honey). (7) Stop Smoking. If you smoke, quitting smoking is one of the best things that you can do for your health. Smoking increases your risk of heart attack, stroke, and peripheral vascular disease, which is a build-up of plaque in your arteries. Please discard all the cigarettes and lighters in your house. Have a plan for what you will do when you have the urge to smoke. Direct and second- hand smoke shortens your life as well as the lives of your family, friends and others around you. For your health and the health of those around you, please consider quitting! Proper Bending Body Mechanics: Maintain a wide stance with one foot slightly in front of the other. Keep your back straight. Bend utilizing the strength in your hips and knees. Do not bend at the waist. Maintain the lifted object at your waist-level close to your body. Avoid lifting weight that causes immediately pain or pain anywhere in the body afterwards. Smoking/Nicotine If there was ever one thing that you could do to increase your overall health, decrease your risk of cardiovascular problems by about 39% the second you make the choice, it is to STOP SMOKING. Your body's most instant gratification is the second you stop smoking. We have all heard the studies, read the articles but it is true, smoking is extremely bad for your overall health, and moreover it is detrimental to your bone health. Nicotine, IN ANY FORM, kills bone cells, prevents your body from healing fractures, and significantly prolongs healing after surgery. In spine surgery specifically, it increases your risk of not healing your bones to create a fusion and increases your risk of having a revision surgery due to this up to 60%. I know it is hard. I know it feels impossible. But there are ways. Take control of your life. We are here to help you through it. And when you are ready, ask us and we can direct you to help if you desire. Use the START Plan to Quit Smoking (please visit the Helpguide.org website listed below for more information): S = Set a quit date. Choose a date within the next 2 weeks, so you have enough time to prepare without losing your motivation to quit. If you mainly smoke at work, quit on the weekend, so you have a few days to adjust to the change. T = Tell family, friends, and co-workers that you plan to quit. Let your friends and family in on your plan to quit smoking and tell them you need their support and encouragement to stop. Look for a quit danielito who wants to stop smoking as well. You can help each other get through the rough times. A = Anticipate and plan for the challenges you'll face while quitting. Most people who begin smoking again do so within the first 3 months. You can help yourself make it through by preparing ahead for common challenges, such as nicotine withdrawal and cigarette cravings. R = Remove cigarettes and other tobacco products from your home, car, and work. Throw away all your cigarettes (no emergency pack!), lighters, ashtrays, and matches. Wash your clothes and freshen up anything that smells like smoke. Shampoo your car, clean your drapes and carpet, and steam your furniture. T = Talk to your doctor about getting help to quit. Your doctor can prescribe medication to help with withdrawal and suggest other alternatives. If you can't see a doctor, you can get many products over the counter at your local pharmacy or grocery store, including the nicotine patch, nicotine lozenges, and nicotine gum. Resources for Quitting Smoking: <https://www.[facility].gov/documents/[facility]/Quit_Tobacco_Resources_for_patients_313480_7.pdf> Supplementation: Take recommended dosages of Vitamin D and Calcium to help fortify your bones and help them to heal. See your health maintenance packet for dosages and recommended levels. DVT/VTE prophylaxis: You will be given compression stockings from the hospital. Wear these daily for the first two weeks after surgery. You may take them off at night. You may be prescribed a medication to help thin your blood. Take this as directed. If you are not prescribed this medication, early and frequent ambulation has been shown to be the best prophylaxis to deep vein thrombosis and sequelae related to this event. Discharge Disposition: HOME SELF-CARE
--- NOTE | 2023-08-14 13:12 | P.OP ---
Date of Procedure: 08/13/23 Preoperative Diagnosis: 1. L3-4 HNP WITH STENOSIS AND RLE RADICULOPATHY 2. LUMBAR SPONDYLOSIS WITH RADICULOPATHY 3. LOW BACK PAIN 4. BMI >45 Postoperative Diagnosis: 1. L3-4 HNP WITH STENOSIS AND RLE RADICULOPATHY 2. LUMBAR SPONDYLOSIS WITH RADICULOPATHY 3. LOW BACK PAIN 4. BMI >45 Procedure(s) Performed: 1. L3-4 MIS LAMINOTOMY WITH MICRODISCECTOMY AND DECOMPRESSION (18210) CPTMOD 22 THIS CASE TOOK 75% LONGER THAN EXPECTED DUE TO CORMORBID CONDITIONS, HIGH BMI >45, EXTENT OF LUMBAR DISEASE AND HIGH TECHNICALITY OF THE CASE USE OF IO MICROSCOPE Implants: NONE Anesthesia: PIETRO Surgeon: Jono Noguera Post Tensioning Ironworker #1: Seven Jones (WAS PRESENT AND ASSISTED WITH ALL ASPECTS OF THE CASE FROM POSITION TO CLOSURE) Estimated Blood Loss (ml): 25 IV fluids (ml): 1,500 Urine output (ml): 0 Pathology: none sent Condition: stable Disposition: PACU Indications for Procedure: Ms. Saunders is presenting for evaluation of low back and right leg pain, right lower extremity numbness and tingling. It was my pleasure to have seen and examined Ms. Saunders. In our visit today we have had a chance to go over subjective complaints, physical examination findings and treatments including the natural course history without intervention and various interventional options. The patients imaging demonstrates: XRay Lumbar Multiview (AP, Lateral, Flexion, Extension) with AP pelvis; 5 views taken at [facility] on 04/10/23: Moderate degenerative changes with flattening of the normal lordosis with mild curvature to the left. Multilevel diminished disc height. Vertebral body heights are preserved. No acute osseous abnormalities. AP Pelvis: The visualized sacrum and iliac wings are within normal limits. [facility]: IMPRESSION: 1. 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 There is inferior migration of disc material up tor 13 mm 2. L4-L5 central disc protrusion without significant spinal or neural foraminal stenosis. On physical exam, Ms. Saunders demonstrates: an ache-like, burning pain throughout the low back that radiates down into the right lower extremity. The patient states that her right leg pain is associated with numbness and tingling. She notes that her symptoms are exacerbated by prolonged activity, such as walking and standing. The patient reports experiencing moderate to severe sleep disturbances related to her ongoing pain and associated symptoms. I have explained to the patient that as their condition progresses it will cause further neurological deficits and eventual paralysis. Based on the patients imaging, physical exam, and the rapid progression and disabling nature of their symptoms, at this time I recommend surgery in the form of a: Right-sided MIS microdiscectomy at L3-4 . I discussed the risk and benefits of this procedure at length with Ms. Saunders. The patient agreed to considered pursuing the procedure abovementioned. Prior to surgery, she should follow up with her PCP (Cardio, ID, IM etc) for clearance. Questions were invited and answered, and the patient wishes to proceed as outlined below. Currently, I am recommendin.Right-sided MIS microdiscectomy at L3-4 Description of Procedure: L3-4 RIGHT MD Microdisc The patient was seen and examined in the preoperative area. All preoperative protocols were followed. Informed consent was obtained, risks and benefits of the procedure were discussed at length. Risks including bleeding infection damage to the surrounding tissue and risk of reoperation were discussed with the patient. Risk of anesthesia up to and including was discussed with the patient. These are outlined in the risk review. They were willing to accept these risks and all the risks of surgery. The patient was given a weight-based dose of antibiotics in the form of 2 g Ancef. The patient was seen and evaluated by the anesthesia team who deemed them fit for surgery. The site was marked, the patient was willing to proceed with the procedure. The patient was transferred to the operative suite by the Department of anesthesia. They were then drifted off to sleep by the department anesthesia and GETA was performed. The patient tolerated this well. Hannah catheter was placed by nursing staff, a-traumatically. Once confirmation of lines and ventilation the patient was transferred to a prone Wilfrido table very carefully. All bony prominences including wrists, elbows, axilla, chest, hips, and thighs, and feet were padded very well. Special attention was paid to the genitalia, and these were padded accordingly. SCDs were placed on bilateral lower extremities and were connected. Arms were well padded and placed on arm boards up and out in the 90/90 position. Once in position, again we confirmed good ventilation capabilities and that lines were running appropriately. The patients Lumbar spine was then exposed. 1010s were placed outlining the incision site. Standard alcohol was used to clean the incision site and allowed to dry. C-arm was used to needle localize the pedicles at L3-4 and bio-kieran the patient and confirm level for incision which was marked with a skin marker. Operative briefing was performed with all teams and everyone in agreement to proceed. The patient was then prepped and draped in a normal sterile fashion. Timeout was then performed, and all parties agreed with the procedure to be performed. Xray localization of the L3-4 interspace was done and tubular retractors placed in a dilation fashion. Fluoro then confirmed correct position and level in the AP and Lateral. Subperiosteal dissection was then taken down the lamina over the facet joints and identifying the pars at L3. [place] 4 was placed at the level of the pars of L3 and a lateral image taken to confirm operative level. Microscope was then brought in for visualization. Nakul-laminotomy, partial medial facetectomy and foraminotomy were performed at L3-4 using high speed kelechi and Kerrison rongure. The ligamentum flavum was removed with Kerrison and curette. Dura and roots protected. The disc space was identified along with the herniation. 11 blade was used to make small annulotomy and micro-pituitary used to remove loose disc fragments. Once fragments were removed, down biting curette was used to push any medial fragments down and towards the annulotomy and decompress centrally. The disc space was irrigated, and any loose fragments removed again. Bipolar was used for hemostasis and scarring of the annulotomy. The area was irrigated, and meticulous hemostasis performed. The bed was inspected, and all roots have ample room and are decompressed along with the dura. There were no injuries. Retractors were then removed. The wound was copiously irrigated with NSS. The deep fascia was closed with 0 PDS. Deep sub- q with 0 Vicryl and superficial with 2-0 Vicryl. Subcuticular was closed with 3-0 stratafix. The wound edges approximated well. The wound was then cleaned, and glue tape placed on the skin and allowed to dry. It was then Covered with an Opifoam dressing. The patient was then transferred off the table back to their hospital bed a- traumatically. They were extubated by the department of anesthesia. They were then transferred to PACU in stable condition having tolerated the procedure with no complications.
== END 2023-08-14 11:32 | disposition home or self-care (01) ==
LOC: OR 10:28 → 4SSUR 15:37 → OR 08-14 11:32
PROVIDERS: ATTEND Orthopaedic Surgery
DX: M48.061 Spinal stenosis, lumbar region without neurogenic claudication (principal); M47.26 Other spondylosis with radiculopathy, lumbar region; M51.16 Intervertebral disc disorders with radiculopathy, lumbar region; F90.9 Attention-deficit hyperactivity disorder, unspecified type; E66.01 Morbid (severe) obesity due to excess calories; I10 Essential (primary) hypertension; F17.210 Nicotine dependence, cigarettes, uncomplicated; F12.90 Cannabis use, unspecified, uncomplicated; Z68.42 Body mass index [BMI] 45.0-49.9, adult; Z79.899 Other long term (current) drug therapy; Z88.1 Allergy status to other antibiotic agents
CPT/HCPCS: 97161; 81025; 72100; 63030; J1100; J0690; J2405; J1170

== ENCOUNTER 2024-01-20 08:01 | Emergency (ER) | payer BC ==
--- NOTE | 2024-01-20 08:45 | ED ---
Female Urogenital HPI - General Chief complaint: Vaginal Bleeding Stated complaint: Vaginal Bleeding Time Seen by Provider: 01/20/24 08:16 Source: patient, RN notes reviewed Mode of arrival: EMS Limitations: no limitations - History of Present Illness Initial comments: This is a 38-year-old female who presents to the emergency department for vaginal bleeding. Patient has history of PCOS and has essentially been dealing with vaginal bleeding since October of this year. She has had a couple days without bleeding in between, however for the most part it is constant. She is concerned because when she woke up this morning she had much more bleeding than usual as well as several heavy clots. Not currently on control. Denies any substantial pain associated with this. She does have an appointment with her [employer], but was unable to get in until next month. MD Complaint: vaginal bleeding - Related Data Home Medications Medication Instructions Recorded Confirmed Dextroamphetamine/Amphetamine 15 mg PO DAILY 11/19/21 08/10/23 [Adderall] Liraglutide [Saxenda] 3 mg SQ DAILY 06/04/23 08/10/23 Progesterone, Micronized 200 mg PO DIRECTED 08/10/23 08/10/23 [Progesterone] Previous Rx's Medication Instructions Recorded Cyclobenzaprine [Flexeril] 5 mg PO TID #21 tablet 08/13/23 Gabapentin 300 mg PO TID #30 cap 08/13/23 HYDROcodone/APAP 7.5-325MG [[place] 1 tab PO Q6HR PRN #36 tab 08/13/23 7.5-325] Sennosides/Docusate Sodium [Senna 1 each PO DAILY #20 capsule 08/13/23 Plus 8.6-50 mg Softgel] cefaDROXiL [Duricef] 500 mg PO Q12HR 5 Days #10 cap 08/13/23 Medroxyprogesterone Acetate 20 mg PO TID 7 Days #42 tablet 01/20/24 Allergies Allergy/AdvReac Type Severity Reaction Status Date / Time nirmatrelvir Allergy Anaphylaxis Verified 01/20/24 08:15 [From Paxlovid (EUA)] ritonavir Allergy Anaphylaxis Verified 01/20/24 08:15 [From Paxlovid (EUA)] Review of Systems ROS Statement: Those systems with pertinent positive or pertinent negative responses have been documented in the HPI. ROS Other: All systems not noted in ROS Statement are negative. Past Medical History Past Medical History: Osteoarthritis (OA) Additional Past Medical History / Comment(s): back pain, PCOS History of Any Multi-Drug Resistant Organisms: None Reported Past Surgical History: Back Surgery Additional Past Surgical History / Comment(s): right knee SX, left ankle SX, herniated disc Past Anesthesia/Blood Transfusion Reactions: Postoperative Nausea & Vomiting (PONV) Past Psychological History: ADD/ADHD Smoking Status: Never smoker Past Alcohol Use History: Rare Past Drug Use History: Marijuana - Past Family History Mother Family Medical History: No Reported History General Exam Limitations: no limitations General appearance: alert, in no apparent distress Head exam: Present: atraumatic, normocephalic, normal inspection Respiratory exam: Present: normal lung sounds bilaterally. Absent: respiratory distress, wheezes, rales, rhonchi, stridor Cardiovascular Exam: Present: regular rate, normal rhythm, normal heart sounds. Absent: systolic murmur, diastolic murmur, rubs, gallop, clicks GI/Abdominal exam: Present: soft, normal bowel sounds. Absent: distended, tenderness, guarding, rebound, rigid Neurological exam: Present: alert, oriented X3, CN II-XII intact Psychiatric exam: Present: normal affect, normal mood Skin exam: Present: warm, dry, intact, normal color. Absent: rash Course Vital Signs 01/20/24 01/20/24 01/20/24 08:10 10:14 11:31 Temperature 98.5 F 98.2 F 98.1 F Pulse Rate 98 91 88 Respiratory 18 18 18 Rate Blood Pressure 166/117 158/89 141/88 O2 Sat by Pulse 95 97 97 Oximetry Medical Decision Making - Medical Decision Making This is a 38 year old female who presents to the emergency department for vagi nal bleeding. Was pt. sent in by a medical professional or institution? @ -No Did you speak to anyone other than the patient for history? @ -No Did you review nursing and triage notes? @ -Yes, and I agree, it is accurate with regards to the patient's symptoms. Were old charts reviewed? @ -No Differential Diagnosis? @ -Differential Vaginal Bleeding: Spontaneous , threatened , molar , ectopic , incompetent cervix, placenta previa, uterine rupture, dysfunctional uterine bleeding, hemorrhage, uterine fibroids, malignancy, coagulopathy, PID, cervicitis, adenomyosis, vaginal trauma, this is not meant to be an all-in clusive list. EKG interpreted by me (3pts min.)? @ -Not obtained X-rays interpreted by me (1pt min.)? @ -Not obtained CT interpreted by me (1pt min.)? @ -Not obtained U/S interpreted by me (1pt. min.)? @ -Transvaginal ultrasound obtained. My interpretation identifies no evidence of an ovarian torsion. What testing was considered but not performed? (CT, X-rays, U/S, labs)? Why? @ -None What meds were considered but not given? Why? @ -None Did you discuss the management of the patient with other professionals? @ -No Did you reconcile home meds? @ -No Was smoking cessation discussed for >3mins.? @ -No Was critical care preformed (if so, how long)? @ -No Were there social determinants of health that impacted care today? How? (Homelessness, low income, unemployed, alcoholism, drug addiction, transportation, low edu. Level, literacy, decrease access to med. care, assisted, rehab)? @ -No Was there de-escalation of care discussed even if they declined? (Discuss DNR or withdrawal of care, Hospice)? @ -No What co-morbidities impacted this encounter? (DM, HTN, Smoking, COPD, CAD, Cancer, CVA, Hep., AIDS, mental health diagnosis, sleep apnea, morbid obesity)? @ -PCOS Was patient admitted / discharged? @ -Discharged. Lab work demonstrates a mild elevation in LFTs, which is stable when compared with prior, and was otherwise unremarkable. Hemoglobin level within normal limits. Patient treated with IV fluids and ketorolac to help with both the bleeding and any discomfort. Transvaginal ultrasound obtained revealing no acute process. Advised that symptoms likely related to the PCOS. She does request medication management to help the bleeding stop. Prescription for medroxyprogesterone provided to be taken over the course of 7 days to help with ongoing bleeding. Advised [id number] NSAIDs as well to further help with bleeding and any discomfort. She will otherwise follow-up with her [employer]. Undiagnosed new problem with uncertain prognosis? @ -None Drug Therapy requiring intensive monitoring for toxicity (Heparin, Nitro, Insulin, Cardizem)? @ -None Were any procedures done? @ -None Diagnosis/symptom? @ -Dysfunctional uterine bleeding, menorrhagia Acute, or Chronic, or Acute on Chronic? @ -Chronic Uncomplicated (without systemic symptoms) or Complicated (systemic symptoms)? @ -Uncomplicated Side effects of treatment? @ -None Exacerbation, Progression, or Severe Exacerbation] @ -Progression Poses a threat to life or bodily function? @ -No Return precautions reviewed in depth, the patient is instructed to return to the emergency department with any new, worsening, or concerning symptoms. Patient verbalized understanding. This case was discussed in detail with the attending ED physician, Dr. Santiago. Presentation, findings, and treatment plan discussed in detail as well. - Lab Data Result diagrams: 01/20/24 08:44 01/20/24 08:44 Lab Results 01/20/24 01/20/24 01/20/24 Range/Units 08:44 08:44 08:44 WBC 5.6 (3.8-10.6) k/uL RBC 4.99 (3.80-5.40) m/uL Hgb 14.5 (11.4-16.0) gm/dL Hct 44.4 (34.0-46.0) % MCV 88.9 (80.0-100.0) fL MCH 29.1 (25.0-35.0) pg MCHC 32.7 (31.0-37.0) g/dL RDW 13.6 (11.5-15.5) % Plt Count 314 (150-450) k/uL MPV 7.1 Neutrophils % 46 % Lymphocytes % 38 % Monocytes % 9 % Eosinophils % 3 % Basophils % 1 % Neutrophils # 2.6 (1.3-7.7) k/uL Lymphocytes # 2.1 (1.0-4.8) k/uL Monocytes # 0.5 (0-1.0) k/uL Eosinophils # 0.2 (0-0.7) k/uL Basophils # 0.1 (0-0.2) k/uL PT 10.6 (10.0-12.5) sec INR 1.0 (<1.2) APTT 23.6 (22.0-30.0) sec Sodium (137-145) mmol/L Potassium (3.5-5.1) mmol/L Chloride (98-107) mmol/L Carbon Dioxide (22-30) mmol/L Anion Gap mmol/L BUN (7-17) mg/dL Creatinine (0.52-1.04) mg/dL Est GFR (CKD-EPI)AfAm (>60 ml/min/1.73 sqM) Est GFR (CKD-EPI)NonAf (>60 ml/min/1.73 sqM) Glucose (74-99) mg/dL Calcium (8.4-10.2) mg/dL Total Bilirubin (0.2-1.3) mg/dL AST (14-36) U/L ALT (4-34) U/L Alkaline Phosphatase (38-126) U/L Total Protein (6.3-8.2) g/dL Albumin (3.5-5.0) g/dL TSH (0.465-4.680) mIU/L Urine Color Yellow Urine Appearance Clear (Clear) Urine pH 6.0 (5.0-8.0) Ur Specific [place] 1.029 (1.001-1.035) Urine Protein 1+ H (Negative) Urine Glucose (UA) Negative (Negative) Urine Ketones Negative (Negative) Urine Blood Large H (Negative) Urine Nitrite Negative (Negative) Urine Bilirubin Negative (Negative) Urine Urobilinogen <2.0 (<2.0) mg/dL Ur Leukocyte Esterase Negative (Negative) Urine RBC >182 H (0-5) /hpf Urine WBC 5 (0-5) /hpf Ur Squamous Epith Cells <1 (0-4) /hpf Hyaline Casts 28 H (0-2) /lpf Urine Mucus Few H (None) /hpf Urine HCG, Qual (Not Detectd) 01/20/24 01/20/24 Range/Units 08:44 08:44 WBC (3.8-10.6) k/uL RBC (3.80-5.40) m/uL Hgb (11.4-16.0) gm/dL Hct (34.0-46.0) % MCV (80.0-100.0) fL MCH (25.0-35.0) pg MCHC (31.0-37.0) g/dL RDW (11.5-15.5) % Plt Count (150-450) k/uL MPV Neutrophils % % Lymphocytes % % Monocytes % % Eosinophils % % Basophils % % Neutrophils # (1.3-7.7) k/uL Lymphocytes # (1.0-4.8) k/uL Monocytes # (0-1.0) k/uL Eosinophils # (0-0.7) k/uL Basophils # (0-0.2) k/uL PT (10.0-12.5) sec INR (<1.2) APTT (22.0-30.0) sec Sodium 140 (137-145) mmol/L Potassium 4.0 (3.5-5.1) mmol/L Chloride 107 (98-107) mmol/L Carbon Dioxide 26 (22-30) mmol/L Anion Gap 7 mmol/L BUN 11 (7-17) mg/dL Creatinine 0.65 (0.52-1.04) mg/dL Est GFR (CKD-EPI)AfAm >90 (>60 ml/min/1.73 sqM) Est GFR (CKD-EPI)NonAf >90 (>60 ml/min/1.73 sqM) Glucose 102 H (74-99) mg/dL Calcium 9.2 (8.4-10.2) mg/dL Total Bilirubin 0.4 (0.2-1.3) mg/dL AST 37 H (14-36) U/L ALT 50 H (4-34) U/L Alkaline Phosphatase 100 (38-126) U/L Total Protein 7.6 (6.3-8.2) g/dL Albumin 4.2 (3.5-5.0) g/dL TSH 2.650 (0.465-4.680) mIU/L Urine Color Urine Appearance (Clear) Urine pH (5.0-8.0) Ur Specific [place] (1.001-1.035) Urine Protein (Negative) Urine Glucose (UA) (Negative) Urine Ketones (Negative) Urine Blood (Negative) Urine Nitrite (Negative) Urine Bilirubin (Negative) Urine Urobilinogen (<2.0) mg/dL Ur Leukocyte Esterase (Negative) Urine RBC (0-5) /hpf Urine WBC (0-5) /hpf Ur Squamous Epith Cells (0-4) /hpf Hyaline Casts (0-2) /lpf Urine Mucus (None) /hpf Urine HCG, Qual Not Detected (Not Detectd) - Radiology Data Radiology results: report reviewed, image reviewed Disposition Clinical Impression: Dysfunctional uterine bleeding Disposition: HOME SELF-CARE Instructions (If sedation given, give patient instructions): Abnormal (Dysfu nctional) Uterine Bleeding (ED), Menorrhagia (ED) Additional Instructions: Return to the emergency department with any new, worsening, or concerning symptoms. Take the medroxyprogesterone as 2 tablets 3 times daily for 7 days. You can also use an [id number]-[id number] anti-inflammatory such as ibuprofen or naproxen to help with heavy bleeding. Follow up with your [employer]. Prescriptions: Medroxyprogesterone Acetate 20 mg PO TID 7 Days #42 tablet Is patient prescribed a controlled substance at d/c from ED?: No Referrals: Michael Patton DO [Primary Care Provider] - 1-2 days Time of Disposition: 11:18
[2024-01-20 08:47] VITALS: RESP 18
[2024-01-20] MEDS: SODIUM CHLORIDE 0.9% 1,000 ML IV STA (08:54)
[2024-01-20] MEDS: KETOROLAC 15 MG/ML 1 ML VIAL IVP STA (09:02)
[2024-01-20 09:07] LABS: Basophils # (A) 0.1 k/uL (0-0.2); Basophils % (A) 1 %; Eosinophils # (A) 0.2 k/uL (0-0.7); Eosinophils % (A) 3 %; HCT 44.4 % (34.0-46.0); HGB 14.5 gm/dL (11.4-16.0); Lymphocytes # (A) 2.1 k/uL (1.0-4.8); Lymphocytes % (A) 38 %; MCH 29.1 pg (25.0-35.0); MCHC 32.7 g/dL (31.0-37.0); MCV 88.9 fL (80.0-100.0); Mean Platelet Volume 7.1; Monocytes # (A) 0.5 k/uL (0-1.0); Monocytes % (A) 9 %; Neutrophils # (A) 2.6 k/uL (1.3-7.7); Neutrophils % (A) 46 %; Platelet Count 314 k/uL (150-450); RBC 4.99 m/uL (3.80-5.40); RDW 13.6 % (11.5-15.5); WBC 5.6 k/uL (3.8-10.6)
[2024-01-20 09:18] LABS: Partial Thromboplastin Time 23.6 sec (22.0-30.0); Prothrombin Time 10.6 sec (10.0-12.5)
[2024-01-20 09:34] LABS: ALT 50 U/L (4-34); AST 37 U/L (14-36); African American GFR (CKD) >90 (>60 ml/min/1.73 sqM); Albumin 4.2 g/dL (3.5-5.0); Alkaline Phosphatase 100 U/L (38-126); Anion Gap 7 mmol/L; Blood Urea Nitrogen 11 mg/dL (7-17); Calcium 9.2 mg/dL (8.4-10.2); Carbon Dioxide 26 mmol/L (22-30); Chloride 107 mmol/L (98-107); Glucose 102 mg/dL (74-99); Non-African American GFR(CKD) >90 (>60 ml/min/1.73 sqM); Sodium 140 mmol/L (137-145); Total Bilirubin 0.4 mg/dL (0.2-1.3); Total Protein 7.6 g/dL (6.3-8.2)
[2024-01-20 10:20] LABS: Appearance,Urine Clear (Clear); Bilirubin,Urine Negative (Negative); Blood,Urine Large (Negative); Color,Urine Yellow; Glucose,Urine (UA) Negative (Negative); Hyaline Casts,Urine 28 /lpf (0-2); Ketones,Urine Negative (Negative); Leukocyte Esterase,Urine Negative (Negative); Mucus,Urine Few /hpf; Nitrite,Urine Negative (Negative); Protein,Urine 1+ (Negative); RBC,Urine >182 /hpf (0-5); Specific Gravity,Urine 1.029 (1.001-1.035); Squamous Epithelial Cell,Urine <1 /hpf (0-4); Urobilinogen,Urine <2.0 mg/dL (<2.0); WBC,Urine 5 /hpf (0-5)
--- NOTE | 2024-01-20 10:50 | US ---
EXAMINATION TYPE: US pelvis complete transvag DATE OF EXAM: 01/20/2024 COMPARISON: NONE CLINICAL INDICATION: Female, 38 years old with history of Heavy vaginal bleeding, pelvic pain; bleedi ng for 3 months, PCOS, G0. 300lbs TECHNIQUE: TA/TV. Transabdominal sonographic images of the pelvis were acquired. Transvaginal sono graphic images Date of LMP: 3 months ago EXAM MEASUREMENTS: Uterus: 6.5 x 3.1 x 2.7 cm Endometrial Stripe: 0.9 cm Right Ovary: 3.0 x 2.2 x 2.6 cm Left Ovary: not seen 1. Uterus: Anteverted wnl 2. Endometrium: wnl 3. Right Ovary: wnl 4. Left Ovary: not seen due to bowel gas and habitus Spectral, color and waveform doppler imaging shows good arterial and venous flow within the right o varies; there is no evidence for right ovarian torsion. 5. Bilateral Adnexa: wnl 6. Posterior cul-de-sac: wnl IMPRESSION: 1. No evidence for acute process. 2. Endometrium within normal limits for thickness. 3. Nonvisualization of the left ovary due to bowel gas.
[2024-01-20 11:38] VITALS: BP 141/88; PULSE 88; TEMP 98.1
== END 2024-01-20 11:55 | disposition home or self-care (01) ==
LOC: EC 08:01
DX: N92.0 Excessive and frequent menstruation with regular cycle (principal); E28.2 Polycystic ovarian syndrome; Z88.8 Allergy status to other drugs, medicaments and biological substances
CPT/HCPCS: 36415; 80053; 84443; 85025; 85610; 85730; 81001; 81025; 93976; 76856; 76830; 99284; 96374; 96361 ×3; J1885

== ENCOUNTER → 2024-02-01 | Outpatient (CLI) | payer BC ==
--- NOTE | 2024-02-01 19:33 | US ---
EXAMINATION TYPE: US kidneys/renal and bladder DATE OF EXAM: 02/01/2024 COMPARISON: NONE CLINICAL INDICATION: Female, 38 years old with history of R31.29 HEMATURIA; Pt states abnormal labs EXAM MEASUREMENTS: Right Kidney: 11.9 x 5.7 x 5.6 cm Left Kidney: 12.5 x 6.7 x 6.0 cm Right Kidney: No evidence of hydro, lower pole gassed out Left Kidney: No evidence of hydro, lower pole gassed out Bladder: wnl Bilateral Jets seen: Yes There is no evidence for hydronephrosis at this point in time. Cortical medullary differentiation is maintained bilaterally. No nephrolithiasis is seen. No solid masses are identified however both lowe r poles are obscured by overlying bowel gas. The urinary bladder is anechoic. Bilateral ureteral je ts are seen. IMPRESSION: No hydronephrosis or nephrolithiasis.
== END | disposition home or self-care (01) ==
LOC: RADUSWWP 16:17
PROVIDERS: ATTEND Internal Medicine
DX: R31.29 Other microscopic hematuria (principal)
CPT/HCPCS: 76770

== ENCOUNTER 2024-02-13 10:03 | Emergency (ER) | payer BC ==
--- NOTE | 2024-02-13 11:35 | ED ---
Female Urogenital HPI - General Chief complaint: Vaginal Bleeding Stated complaint: Female Time Seen by Provider: 02/13/24 11:33 Source: patient, RN notes reviewed Mode of arrival: ambulatory Limitations: no limitations - History of Present Illness Initial comments: 38-year-old female with history of PCOS presenting with heavy vaginal bleeding x 4 months. States she has had constant vaginal bleeding since October. She was seen here in the ER 2 weeks ago for this issue where they performed an ultrasound that was unremarkable and she was given Depo-Provera for 7 days which she reports reduced the bleeding temporarily. States when the medication was completed, the bleeding began again and is now worsening. Reports she is going through 1 pad every 2 hours and is frequently bleeding through her clothing. There are some small sized clots. She admits pelvic cramping as well. States she has a hysteroscopy scheduled for end of March, however she is concerned because the vaginal bleeding is worsening and she is starting to feel lighthead ed and fatigued that she feels is due to the heavy bleeding. - Related Data Home Medications Medication Instructions Recorded Confirmed Dextroamphetamine/Amphetamine 15 mg PO DAILY 11/19/21 08/10/23 [Adderall] Liraglutide [Saxenda] 3 mg SQ DAILY 06/04/23 08/10/23 Progesterone, Micronized 200 mg PO DIRECTED 08/10/23 08/10/23 [Progesterone] Previous Rx's Medication Instructions Recorded Cyclobenzaprine [Flexeril] 5 mg PO TID #21 tablet 08/13/23 Gabapentin 300 mg PO TID #30 cap 08/13/23 HYDROcodone/APAP 7.5-325MG [[place] 1 tab PO Q6HR PRN #36 tab 08/13/23 7.5-325] Sennosides/Docusate Sodium [Senna 1 each PO DAILY #20 capsule 08/13/23 Plus 8.6-50 mg Softgel] cefaDROXiL [Duricef] 500 mg PO Q12HR 5 Days #10 cap 08/13/23 Medroxyprogesterone Acetate 20 mg PO TID 7 Days #42 tablet 01/20/24 Allergies Allergy/AdvReac Type Severity Reaction Status Date / Time nirmatrelvir Allergy Anaphylaxis Verified 02/13/24 10:25 [From Paxlovid (EUA)] ritonavir Allergy Anaphylaxis Verified 02/13/24 10:25 [From Yousuf (JB)] Review of Systems ROS Statement: Those systems with pertinent positive or pertinent negative responses have been documented in the HPI. ROS Other: All systems not noted in ROS Statement are negative. Past Medical History Past Medical History: Osteoarthritis (OA) Additional Past Medical History / Comment(s): back pain, PCOS History of Any Multi-Drug Resistant Organisms: None Reported Past Surgical History: Cholecystectomy, Orthopedic Surgery Additional Past Surgical History / Comment(s): right knee SX, left ankle SX Past Anesthesia/Blood Transfusion Reactions: Postoperative Nausea & Vomiting (PONV) Past Psychological History: ADD/ADHD Smoking Status: Never smoker Past Alcohol Use History: Occasional Past Drug Use History: None Reported - Past Family History Mother Family Medical History: No Reported History General Exam - General Exam Comments Initial Comments: Visual Physical Exam Vital signs reviewed General: Well-appearing, nontoxic, no acute distress. Head: Normocephalic, atraumatic Eyes: PERRLA, EOMI ENT: Airway patent Chest: Nonlabored breathing Skin: No visual rash, normal skin tone Neuro: Alert and oriented 3 Musculoskeletal: No gross abnormalities Limitations: no limitations General appearance: alert, in no apparent distress Head exam: Present: atraumatic, normocephalic, normal inspection Eye exam: Present: normal appearance, PERRL, EOMI. Absent: scleral icterus, conjunctival injection, periorbital swelling ENT exam: Present: normal exam, mucous membranes moist Neck exam: Present: normal inspection. Absent: tenderness, meningismus, lymphadenopathy Respiratory exam: Present: normal lung sounds bilaterally. Absent: respiratory distress, wheezes, rales, rhonchi, stridor Cardiovascular Exam: Present: regular rate, normal rhythm, normal heart sounds. Absent: systolic murmur, diastolic murmur, rubs, gallop, clicks GI/Abdominal exam: Present: soft, normal bowel sounds. Absent: distended, tenderness, guarding, rebound, rigid External exam: Present: other (Patient declines pelvic exam at this time.) Extremities exam: Present: normal inspection, full ROM, normal capillary refill. Absent: tenderness, pedal edema, joint swelling, calf tenderness Neurological exam: Present: alert, oriented X3, CN II-XII intact Psychiatric exam: Present: normal affect, normal mood Skin exam: Present: warm, dry, intact, normal color. Absent: rash Course Vital Signs 02/13/24 02/13/24 10:23 15:26 Temperature 98 F 98.1 F Pulse Rate 93 75 Respiratory 20 16 Rate Blood Pressure 153/79 150/100 O2 Sat by Pulse 99 98 Oximetry Medical Decision Making - Medical Decision Making I completed the quick note portion of this chart signed Ragini Medina PA-C Was pt. sent in by a medical professional or institution (, JOE, CHIEF COMPRESSOR STATION ENGINEER, urgent care, hospital, or correction...) When possible be specific @ -No Did you speak to anyone other than the patient for history (EMS, parent, family, police, friend...)? What history was obtained from this source @ -No Did you review nursing and triage notes (agree or disagree)? Why? @ -I reviewed and agree with nursing and triage notes Were old charts reviewed (outside hosp., previous admission, EMS record, old EKG, old radiological studies, urgent care reports/EKG's, correction records)? Report findings @ -ER visit from 01/20/2024 reviewed including ultrasound which revealed no acute process, endometrium was within normal limits for thickness Differential Diagnosis (chest pain, altered mental status, abdominal pain women, abdominal pain men, vaginal bleeding, weakness, fever, dyspnea, syncope, headache, dizziness, GI bleed, back pain, seizure, CVA, palpatations, mental health, musculoskeletal)? @ -Differential Vaginal Bleeding: Spontaneous , threatened , molar , ectopic , bloody show, incompetent cervix, abruptioplacenta, placenta previa, uterine rupture, dysfunctional uterine bleeding, hemorrhage, uterine fibroids, this is not meant to be an all-inclusive list. EKG interpreted by me (3pts min.). @ -None X-rays interpreted by me (1pt min.). @ -None done CT interpreted by me (1pt min.). @ -None done U/S interpreted by me (1pt. min.). @ -None done What testing was considered but not performed or refused? (CT, X-rays, U/S, labs)? Why? @ -Ultrasound not performed due to patient was seen 2 weeks ago for same symptoms and had ultrasound which was negative for acute process. What meds were considered but not given or refused? Why? @ -IV fluids ordered but not given due to poor vein quality Did you discuss the management of the patient with other professionals (professionals i.e. , PA, CHIEF COMPRESSOR STATION ENGINEER, lab, RT, psych nurse, hospice social worker, desktop technician, teacher, airport operations officer, wrapper caser)? Give summary @ -No Was smoking cessation discussed for >3mins.? @ -No Was critical care preformed (if so, how long)? @ -No Were there social determinants of health that impacted care today? How? (Homelessness, low income, unemployed, alcoholism, drug addiction, transportation, low edu. Level, literacy, decrease access to med. care, retirement, rehab)? @ -No Was there de-escalation of care discussed even if they declined (Discuss DNR or withdrawal of care, Hospice)? DNR status @ -No What co-morbidities impacted this encounter? (DM, HTN, Smoking, COPD, CAD, Cancer, CVA, ARF, Chemo, Hep., AIDS, mental health diagnosis, sleep apnea, morbid obesity)? @ -None Was patient admitted / discharged? Hospital course, mention meds given and route, prescriptions, significant lab abnormalities, going to OR and other pertinent info. @ -Patient was discharged. Patient was seen and evaluated for heavy vaginal bleeding x 4 months that is worsening. Patient was seen in ER 2 weeks ago for same issue and ultrasound was negative for acute process at this time. Abdomen is nontender to palpation. Patient declines pelvic examination at this time. Toradol given, IV fluids ordered but not given due to poor vein quality. Lab work is unremarkable, hemoglobin is 13. Urine reveals large amount of blood, 15 white blood cells, and 1+ protein. Patient denies any urinary symptoms. Discussed diagnosis of menorrhagia with patient. There are no signs of life- threatening etiology or anemia on examination today. Advised to follow-up with gynecology in 1 to 3 days for further evaluation. Strict return/alarm symptoms discussed with patient in detail and she shows understanding and agrees with plan. Gynecology referral given. Case discussed with my attending Dr. Alaniz. Patient discharged in stable condition. Undiagnosed new problem with uncertain prognosis? @ -No Drug Therapy requiring intensive monitoring for toxicity (Heparin, Nitro, Insulin, Cardizem)? @ -No Were any procedures done? @ -No Diagnosis/symptom? @ -Menorrhagia Acute, or Chronic, or Acute on Chronic? @ -Chronic Uncomplicated (without systemic symptoms) or Complicated (systemic symptoms)? @ -Uncomplicated Side effects of treatment? @ -No Exacerbation, Progression, or Severe Exacerbation? @ -No Poses a threat to life or bodily function? How? (Chest pain, [place], [place], pneumonia, PE, COPD, DKA, ARF, appy, cholecystitis, CVA, Diverticulitis, Homicidal, Suicidal, threat to staff... and all critical care pts) @ -Low likelihood - Lab Data Result diagrams: 02/13/24 12:00 02/13/24 12:00 Lab Results 02/13/24 02/13/24 02/13/24 Range/Units 12:00 12:00 12:00 WBC 7.4 (3.8-10.6) k/uL RBC 4.34 (3.80-5.40) m/uL Hgb 13.0 (11.4-16.0) gm/dL Hct 39.7 (34.0-46.0) % MCV 91.6 (80.0-100.0) fL MCH 30.0 (25.0-35.0) pg MCHC 32.8 (31.0-37.0) g/dL RDW 13.3 (11.5-15.5) % Plt Count 289 (150-450) k/uL MPV 7.0 Neutrophils % 50 % Lymphocytes % 40 % Monocytes % 6 % Eosinophils % 2 % Basophils % 1 % Neutrophils # 3.7 (1.3-7.7) k/uL Lymphocytes # 2.9 (1.0-4.8) k/uL Monocytes # 0.5 (0-1.0) k/uL Eosinophils # 0.1 (0-0.7) k/uL Basophils # 0.1 (0-0.2) k/uL PT 10.3 (10.0-12.5) sec INR 0.9 (<1.2) APTT 22.4 (22.0-30.0) sec Sodium 139 (137-145) mmol/L Potassium 4.4 (3.5-5.1) mmol/L Chloride 110 H (98-107) mmol/L Carbon Dioxide 25 (22-30) mmol/L Anion Gap 4 mmol/L BUN 12 (7-17) mg/dL Creatinine 0.60 (0.52-1.04) mg/dL Est GFR (CKD-EPI)AfAm >90 (>60 ml/min/1.73 sqM) Est GFR (CKD-EPI)NonAf >90 (>60 ml/min/1.73 sqM) Glucose 83 (74-99) mg/dL Calcium 8.9 (8.4-10.2) mg/dL Total Bilirubin 0.4 (0.2-1.3) mg/dL AST 22 (14-36) U/L ALT 25 (4-34) U/L Alkaline Phosphatase 88 (38-126) U/L Total Protein 7.0 (6.3-8.2) g/dL Albumin 4.1 (3.5-5.0) g/dL Urine Color Urine Appearance (Clear) Urine pH (5.0-8.0) Ur Specific [place] (1.001-1.035) Urine Protein (Negative) Urine Glucose (UA) (Negative) Urine Ketones (Negative) Urine Blood (Negative) Urine Nitrite (Negative) Urine Bilirubin (Negative) Urine Urobilinogen (<2.0) mg/dL Ur Leukocyte Esterase (Negative) Urine RBC (0-5) /hpf Urine WBC (0-5) /hpf Urine Mucus (None) /hpf Urine HCG, Qual (Not Detectd) 02/13/24 02/13/24 Range/Units 14:12 14:12 WBC (3.8-10.6) k/uL RBC (3.80-5.40) m/uL Hgb (11.4-16.0) gm/dL Hct (34.0-46.0) % MCV (80.0-100.0) fL MCH (25.0-35.0) pg MCHC (31.0-37.0) g/dL RDW (11.5-15.5) % Plt Count (150-450) k/uL MPV Neutrophils % % Lymphocytes % % Monocytes % % Eosinophils % % Basophils % % Neutrophils # (1.3-7.7) k/uL Lymphocytes # (1.0-4.8) k/uL Monocytes # (0-1.0) k/uL Eosinophils # (0-0.7) k/uL Basophils # (0-0.2) k/uL PT (10.0-12.5) sec INR (<1.2) APTT (22.0-30.0) sec Sodium (137-145) mmol/L Potassium (3.5-5.1) mmol/L Chloride (98-107) mmol/L Carbon Dioxide (22-30) mmol/L Anion Gap mmol/L BUN (7-17) mg/dL Creatinine (0.52-1.04) mg/dL Est GFR (CKD-EPI)AfAm (>60 ml/min/1.73 sqM) Est GFR (CKD-EPI)NonAf (>60 ml/min/1.73 sqM) Glucose (74-99) mg/dL Calcium (8.4-10.2) mg/dL Total Bilirubin (0.2-1.3) mg/dL AST (14-36) U/L ALT (4-34) U/L Alkaline Phosphatase (38-126) U/L Total Protein (6.3-8.2) g/dL Albumin (3.5-5.0) g/dL Urine Color Red Urine Appearance Cloudy H (Clear) Urine pH 6.0 (5.0-8.0) Ur Specific [place] 1.023 (1.001-1.035) Urine Protein 1+ H (Negative) Urine Glucose (UA) Negative (Negative) Urine Ketones Negative (Negative) Urine Blood Large H (Negative) Urine Nitrite Negative (Negative) Urine Bilirubin Negative (Negative) Urine Urobilinogen <2.0 (<2.0) mg/dL Ur Leukocyte Esterase Small H (Negative) Urine RBC >182 H (0-5) /hpf Urine WBC 15 H (0-5) /hpf Urine Mucus Occasional H (None) /hpf Urine HCG, Qual Not Detected (Not Detectd) Disposition Clinical Impression: Menorrhagia Disposition: HOME SELF-CARE Condition: Stable Instructions (If sedation given, give patient instructions): Menorrhagia (ED) Additional Instructions: Follow-up with gynecology. Please return to the Emergency Department if symptoms worsen or any other concerns. Is patient prescribed a controlled substance at d/c from ED?: No Referrals: Michael Patton DO [Primary Care Provider] - 1-2 days Bonita Guzman DO [Doctor of Osteopathic Medicine] - 1-2 days Time of Disposition: 15:18
[2024-02-13 12:09] LABS: Basophils # (A) 0.1 k/uL (0-0.2); Basophils % (A) 1 %; Eosinophils # (A) 0.1 k/uL (0-0.7); Eosinophils % (A) 2 %; HCT 39.7 % (34.0-46.0); Lymphocytes # (A) 2.9 k/uL (1.0-4.8); Lymphocytes % (A) 40 %; MCHC 32.8 g/dL (31.0-37.0); MCV 91.6 fL (80.0-100.0); Monocytes # (A) 0.5 k/uL (0-1.0); Monocytes % (A) 6 %; Neutrophils # (A) 3.7 k/uL (1.3-7.7); Neutrophils % (A) 50 %; Platelet Count 289 k/uL (150-450); RBC 4.34 m/uL (3.80-5.40); RDW 13.3 % (11.5-15.5); WBC 7.4 k/uL (3.8-10.6)
[2024-02-13 12:18] LABS: INR 0.9 (<1.2); Partial Thromboplastin Time 22.4 sec (22.0-30.0); Prothrombin Time 10.3 sec (10.0-12.5)
[2024-02-13 12:22] LABS: ALT 25 U/L (4-34); AST 22 U/L (14-36); African American GFR (CKD) >90 (>60 ml/min/1.73 sqM); Albumin 4.1 g/dL (3.5-5.0); Alkaline Phosphatase 88 U/L (38-126); Anion Gap 4 mmol/L; Blood Urea Nitrogen 12 mg/dL (7-17); Calcium 8.9 mg/dL (8.4-10.2); Carbon Dioxide 25 mmol/L (22-30); Chloride 110 mmol/L (98-107); Glucose 83 mg/dL (74-99); Non-African American GFR(CKD) >90 (>60 ml/min/1.73 sqM); Potassium 4.4 mmol/L (3.5-5.1); Sodium 139 mmol/L (137-145); Total Bilirubin 0.4 mg/dL (0.2-1.3)
[2024-02-13] MEDS ORDERED: KETOROLAC 15 MG/ML 1 ML VIAL IVP STA (13:12)
[2024-02-13] MEDS: SODIUM CHLORIDE 0.9% 1,000 ML IV STA (13:53)
[2024-02-13 14:28] LABS: Appearance,Urine Cloudy (Clear); Bilirubin,Urine Negative (Negative); Blood,Urine Large (Negative); Color,Urine Red; Glucose,Urine (UA) Negative (Negative); Ketones,Urine Negative (Negative); Leukocyte Esterase,Urine Small (Negative); Mucus,Urine Occasional /hpf; Nitrite,Urine Negative (Negative); Protein,Urine 1+ (Negative); RBC,Urine >182 /hpf (0-5); Specific Gravity,Urine 1.023 (1.001-1.035); Urobilinogen,Urine <2.0 mg/dL (<2.0); WBC,Urine 15 /hpf (0-5)
[2024-02-13 15:28] VITALS: BP 150/100; PULSE 75; RESP 16; TEMP 98.1
== END 2024-02-13 15:27 | disposition home or self-care (01) ==
LOC: EC 10:03
DX: N92.0 Excessive and frequent menstruation with regular cycle (principal); Z88.8 Allergy status to other drugs, medicaments and biological substances
CPT/HCPCS: 36415; 80053; 81001; 81025; 85025; 85610; 85730; 99284

== ENCOUNTER → 2024-11-30 | Outpatient (CLI) | payer BC ==
[2024-11-30 13:55] VITALS: BP 176/107; PULSE 83; RESP 16; TEMP 98.1; BMI 52.8
--- NOTE | 2024-11-30 14:46 | P.HPBAR ---
Bariatric H&P - History & Physicial H&P Date: 11/30/24 History & Physicial: Visit/CC: new pt Patient initial contact: Initial weight: Initial weight in pounds: Height: 5 ft 9 in Initial BMI: Last weight: Current weight: 162.386 kg Current weight in pounds: 358.00 Current BMI: 52.8 [place] body weight (based on NIH guidelines): 65.9 kg Excess body weight loss: The patient is a 39 year-old F who presents for Bariatric Assessment. She is looking into weight loss surgery. No preference. She has PCOS. She has a child. SHe has insulin resistance. No stomach. No esophageal cancer. No cancer. Mother side not aware of comorbidites. Family has weight problems. No crohns disease. No ulcerative colitis. No celiac. NO blood clots. Has back pain. Had back surgery. NO hip pain. Has knee pain on right side. She ran 1/2 marathons. Left ankle screws. No gallbladder. She had medical weight loss. Highest weight. She lost HCG pills. 130 pounds lost. She was seeing a link trainer mechanic and paying $1000 per month. She is open to procedures. In the past food journal. She has ADHD. Past Medical History Past Medical History: Osteoarthritis (OA) Additional Past Medical History / Comment(s): back pain, PCOS History of Any Multi-Drug Resistant Organisms: None Reported Past Surgical History: Back Surgery, Cholecystectomy, Orthopedic Surgery Additional Past Surgical History / Comment(s): right knee SX, left ankle SX, Laminectomy L3-4 Past Anesthesia/Blood Transfusion Reactions: Postoperative Nausea & Vomiting (PONV) Past Psychological History: ADD/ADHD Smoking Status: Never smoker Past Alcohol Use History: Occasional Past Drug Use History: None Reported Additional Drug Use History / Comment(s): Marijuana gummies occasionally - Past Family History Mother Family Medical History: No Reported History Surgical - Exam Vital Signs Temp Pulse Resp BP 98.1 F 83 16 176/107 11/30/24 13:43 11/30/24 13:43 11/30/24 13:43 11/30/24 13:43 Bariatric Checklist Checklist: Plan: Checklist: EGD: 1. Hiatal hernia: 2. H. Pylori: HgbA1c: Vitamin D: Smoking: Primary care physician referral: [facility] Psychiatry clearance: Cardiology clearance: Sleep study: Diet journal: VTE risk score: VTE risk level: Rehab needs at discharge:
== END ==
LOC: BARWHC3 12:56
PROVIDERS: ATTEND Surgery Plastic and Reconstructive Surgery
DX: E66.01 Morbid (severe) obesity due to excess calories (principal); Z53.9 Procedure and treatment not carried out, unspecified reason
CPT/HCPCS: 99212

== ENCOUNTER → 2024-12-03 | Outpatient (CLI) | payer BC ==
[2024-12-03 08:56] LABS: INR 0.9 (<1.2); Partial Thromboplastin Time 22.7 sec (22.0-30.0); Prothrombin Time 10.4 sec (10.0-12.5)
[2024-12-03 13:15] LABS: MCH 29.4 pg (27.0-32.0); MCHC 32.5 g/dL (32.0-37.0); MCV 90.5 FL (80.0-97.0); Mean Platelet Volume 8.9 FL (9.5-12.2); NRBC Per 100 WBC 0.02 X 10*3/uL (0.00-0.01); Platelet Count 288 X 10*3/uL (140-440); RBC 4.42 X 10*6/uL (4.10-5.20); RDW 13.5 % (11.5-14.5); WBC 7.97 X 10*3/uL (4.50-10.00)
[2024-12-03 13:29] LABS: Prealbumin 17.2 mg/dL (18.0-42.0)
[2024-12-03 14:22] LABS: % Iron Saturation 13.92 (12.00-45.00); ALT 44 U/L (8-44); AST 29 U/L (13-35); Albumin 3.9 g/dL (3.8-4.9); Albumin/Globulin Ratio 1.22 Ratio (1.60-3.17); Alkaline Phosphatase 87 U/L (41-126); BUN/Creat Ratio 17.83 Ratio (12.00-20.00); Blood Urea Nitrogen 10.7 mg/dL (9.0-27.0); Calcium 8.9 mg/dL (8.7-10.3); Carbon Dioxide 23.4 mmol/L (21.6-31.8); Chloride 104 mmol/L (96-109); Ferritin 40.1 ng/mL (10.0-291.0); Globulin 3.2 g/dL (1.6-3.3); Glucose 92 mg/dL (70-110); Iron 55 UG/DL (50-170); LDL Cholesterol,Calculated 134.6 mg/dL (0.0-131.0); Magnesium 1.8 mg/dL (1.5-2.4); Phosphorus 2.5 mg/dL (2.4-5.1); Potassium 4.4 mmol/L (3.5-5.5); Sodium 140 mmol/L (135-145); Total Bilirubin 0.2 mg/dL (0.3-1.2); Total Iron Binding Capacity 395 UG/DL (228-460); Total Protein 7.1 g/dL (6.2-8.2)
[2024-12-05 21:53] LABS: Zinc, Serum 64 ug/dL (60-130)
== END | disposition home or self-care (01) ==
LOC: LABWHC1 07:57
PROVIDERS: ATTEND Surgery Plastic and Reconstructive Surgery
DX: E66.01 Morbid (severe) obesity due to excess calories (principal)
CPT/HCPCS: 36415; 80053; 80061; 82306; 82525; 82607; 82728; 82746; 83036; 83540; 83550; 83735; 83970; 84100; 84134; 84255; 84425; 84443; 84590; 84630; 85027; 85610; 85730

== ENCOUNTER → 2024-12-06 | Outpatient (CLI) | payer BC ==
[2024-12-08 05:57] LABS: Anabasine Urine <2.0 ng/mL (<2.0)
== END | disposition home or self-care (01) ==
LOC: LABPAT 15:17
PROVIDERS: ATTEND Surgery Plastic and Reconstructive Surgery
DX: Z01.818 Encounter for other preprocedural examination (principal)
CPT/HCPCS: 80307; 80323; 93005

== ENCOUNTER 2025-01-02 09:14 | Day surgery (SDC) | payer BC ==
[2024-12-29 16:08] VITALS: BMI 44.3
--- NOTE | 2025-01-02 08:32 | P.GSHP ---
History of Present Illness H&P Date: 01/02/25 CHIEF COMPLAINT: GERD and dysphagia HISTORY OF PRESENT ILLNESS: The patient is a 39-year-old female who presents reports gastroesophageal reflux disease and dysphagia. Upper endoscopy was offered for further evaluation and management. PAST MEDICAL HISTORY: Please see list. PAST SURGICAL HISTORY: Please see list. MEDICATIONS: Please see list. ALLERGIES: Please see list. SOCIAL HISTORY: No illicit drug use FAMILY HISTORY: No reports of Crohn disease or ulcerative colitis. REVIEW OF ORGAN SYSTEMS: CONSTITUTIONAL: No reports of fevers or chills. GI: Denies any blood in stools or constipation. PHYSICAL EXAM: VITAL SIGNS: Stable GENERAL: Well-developed and pleasant in no acute distress. HEENT: No scleral icterus. Extraocular movements grossly intact. Moist buccal mucosa. NECK: Supple without lymphadenopathy. CHEST: Unlabored respirations. Equal bilateral excursions. CARDIOVASCULAR: Regular rate and rhythm. Distal 2+ pulses. ABDOMEN: Soft, nondistended. MUSCULOSKELETAL: No clubbing, cyanosis, or edema. ASSESSMENT: 1. Gastroesophageal reflux disease 2. Dysphagia PLAN: 1. Recommend proceeding with an upper endoscopy Past Medical History Past Medical History: Osteoarthritis (OA), Skin Disorder Additional Past Medical History / Comment(s): Back pain, PCOS, varicose veins, "light heartburn", eczema. History of Any Multi-Drug Resistant Organisms: None Reported Past Surgical History: Back Surgery, Cholecystectomy, Orthopedic Surgery Additional Past Surgical History / Comment(s): Right knee surgeyr, left ankle surgey, aminectomy L3-L4. Past Anesthesia/Blood Transfusion Reactions: Motion Sickness, Postoperative Nausea & Vomiting (PONV) Smoking Status: Never smoker - Past Family History Mother Family Medical History: No Reported History Father Family Medical History: Cancer Additional Family Medical History / Comment(s): Melanoma. Medications and Allergies Home Medications Medication Instructions Recorded Confirmed Type Ergocalciferol [Vitamin D2 (1250 50,000 unit PO SA 12/06/24 12/29/24 History Mcg = 57099 Iu)] Allergies Allergy/AdvReac Type Severity Reaction Status Date / Time nirmatrelvir Allergy Anaphylaxis Verified 12/29/24 15:54 [From Paxlovid (EUA)] ritonavir Allergy Anaphylaxis Verified 12/29/24 15:54 [From Paxlovid (EUA)]
[2025-01-02] MEDS: LACTATED RINGERS 1,000 ML IV ONE (09:27)
[2025-01-02 09:31] VITALS: RESP 16; TEMP 98
[2025-01-02] MEDS: LACTATED RINGERS 1,000 ML IV SCH (09:36)
[2025-01-02] MEDS: SCOPOLAMINE 1 MG/72 HR PATCH TRANSDERM STA (09:49)
[2025-01-02] MEDS: ONDANSETRON 4 MG/2 ML VIAL IVP STA (09:49)
[2025-01-02] MEDS ORDERED: LIDOCAINE 1% INJ 10MG/ML (20 ML MDV) ONE (10:15)
[2025-01-02] MEDS ORDERED: PROPOFOL 10 MG/ML 20 ML VIAL IV ONE (10:15)
--- NOTE | 2025-01-02 10:30 | P.PCN ---
Date of Procedure: 01/02/25 Description of Procedure: PREOPERATIVE DIAGNOSIS: Gastroesophageal reflux disease. Morbid obesity. Dysphagia POSTOPERATIVE DIAGNOSIS: Gastroesophageal reflux disease. Gastritis. Diaphragmatic hiatal hernia Acute esophageal ulcer OPERATION: Esophagogastroduodenoscopy with cold forceps biopsies along antrum and duodenum SURGEON: Radha Mai MD ANESTHESIA: MAC. INDICATIONS: The patient is a 48-year-old female who presents with dysphagia and reflux disease. Benefits and risks of the procedure were described. Informed consent was obtained. DESCRIPTION: The patient was brought into the endoscopy suite and laid in the left lateral decubitus position. An Olympus gastroscope was passed along the posterior oropharynx down to the distal esophagus where the squamocolumnar junction was encountered at 37 cm from the incisors. The stomach was entered and no bile reflux was found. Additional findings are listed below. Biopsies with cold forceps were obtained of the antrum. The first through third portion of the duodenum was examined. Retroflexion of the scope confirmed Hill grade 3 lower esophageal valve. The squamocolumnar junction demonstrated LA grade C erosive esophagitis. The stomach was desufflated. The patient tolerated the procedure well. FINDINGS: Squamocolumnar junction 37 cm from the incisors. Diaphragmatic hiatus at 40 cm. Hiatal hernia, 3 cm Hill grade 2 lower esophageal valve. LA grade C erosive esophagitis. Biopsies obtained Biopsies obtained of the duodenum. Chronic gastritis with biopsies obtained. Acute esophageal ulceration without bleeding with biopsies obtained RECOMMENDATIONS: Omeprazole 40 mg daily Plan - Discharge Summary Discharge Rx Participant: No New Discharge Prescriptions: New Omeprazole [PriLOSEC] 40 mg PO DAILY #14 cap Continue Ergocalciferol [Vitamin D2 (1250 Mcg = 06365 Iu)] 50,000 unit PO SA Discharge Medication List Ergocalciferol [Vitamin D2 (1250 Mcg = 52346 Iu)] 50,000 unit PO SA 12/06/24 [History] Omeprazole [PriLOSEC] 40 mg PO DAILY #14 cap 01/02/25 [Rx] [facility]ment[facility]Ref[facility] [place] [place] [facility] - 01/18/25 3:00 pm Patient Instructions/Handouts: *Surgery [facility] - Scopalamine Patch Instructions, Gastritis (DC), GERD (Gastroesophageal Reflux Disease) (DC) Discharge Disposition: HOME SELF-CARE
[2025-01-02 10:53] VITALS: BP 133/90; PULSE 68
== END 2025-01-02 11:09 | disposition home or self-care (01) ==
LOC: ORWHC2ENDO 09:14
PROVIDERS: ATTEND Surgery Plastic and Reconstructive Surgery
DX: K21.00 Gastro-esophageal reflux disease with esophagitis, without bleeding (principal); K22.10 Ulcer of esophagus without bleeding; K29.50 Unspecified chronic gastritis without bleeding; K44.9 Diaphragmatic hernia without obstruction or gangrene; M19.90 Unspecified osteoarthritis, unspecified site; Z91.89 Other specified personal risk factors, not elsewhere classified; E66.01 Morbid (severe) obesity due to excess calories; Z79.899 Other long term (current) drug therapy; Z87.892 Personal history of anaphylaxis; Z88.8 Allergy status to other drugs, medicaments and biological substances
CPT/HCPCS: 81025; 88305; 43239; J2405; J2003; J2704

== ENCOUNTER → 2025-01-18 | Outpatient (CLI) | payer BC ==
[2025-01-18 16:27] VITALS: BP 154/93; PULSE 80; RESP 16; TEMP 98; BMI 53.1
--- NOTE | 2025-01-18 16:46 | P.BASOAP ---
Subjective Progress Note Date: 01/18/25 She wants to adopt children. She wants a hysterectomy and wants to be sterlized. Has hiatal hernia. Has reflux. She has PCOS. Needs omeprazole. She has moderate GERD. She is okay with a sleeve. Needs nutrition case. EKG is normal. Needs Vitamin D. Objective - Vital Signs Vital signs: Vital Signs Temp 98.0 F 01/18/25 16:19 Pulse 80 01/18/25 16:19 Resp 16 01/18/25 16:19 BP 154/93 01/18/25 16:19 Pulse Ox FiO2 Intake & Output 01/17/25 01/18/25 01/18/25 18:59 06:59 18:59 Weight 163.293 kg Assessment/Plan Plan: Date: 01/18/25 Initial Weight: Initial BMI: Current Weight: 163.293 kg Current BMI: 53.1 Type of Surgery: Total Volume in Band: Previous Volume: Volume Removed: Volume Added: Band Size:
== END ==
LOC: BARWHC3 14:38
PROVIDERS: ATTEND Surgery Plastic and Reconstructive Surgery
DX: E66.01 Morbid (severe) obesity due to excess calories (principal); F12.90 Cannabis use, unspecified, uncomplicated; Z88.8 Allergy status to other drugs, medicaments and biological substances; Z68.43 Body mass index [BMI] 50.0-59.9, adult
CPT/HCPCS: 99211

== ENCOUNTER → 2025-03-01 | Outpatient (CLI) | payer BC ==
[2025-03-01 18:35] LABS: HCT 39.7 % (37.2-46.3); HGB 13.0 g/dL (12.0-15.0); MCH 28.8 pg (27.0-32.0); MCHC 32.7 g/dL (32.0-37.0); MCV 88.0 FL (80.0-97.0); NRBC Per 100 WBC 0 X 10*3/uL (0.00-0.01); Platelet Count 319 X 10*3/uL (140-440); RBC 4.51 X 10*6/uL (4.10-5.20); RDW 13.5 % (11.5-14.5); WBC 8.37 X 10*3/uL (4.50-10.00)
[2025-03-01 18:52] LABS: ALT 62 U/L (8-44); AST 41 U/L (13-35); Albumin 4.4 g/dL (3.8-4.9); Albumin/Globulin Ratio 1.38 Ratio (1.60-3.17); Alkaline Phosphatase 81 U/L (41-126); Anion Gap 12.00 mmol/L (4.00-12.00); BUN/Creat Ratio 20.14 Ratio (12.00-20.00); Blood Urea Nitrogen 14.1 mg/dL (9.0-27.0); Calcium 9.5 mg/dL (8.7-10.3); Carbon Dioxide 26.0 mmol/L (21.6-31.8); Chloride 100 mmol/L (96-109); Globulin 3.2 g/dL (1.6-3.3); Glucose 78 mg/dL (70-110); Potassium 4.5 mmol/L (3.5-5.5); Sodium 138 mmol/L (135-145); Total Protein 7.6 g/dL (6.2-8.2)
== END | disposition home or self-care (01) ==
LOC: LABPAT 14:40
PROVIDERS: ATTEND Surgery Plastic and Reconstructive Surgery
DX: Z01.812 Encounter for preprocedural laboratory examination (principal)
CPT/HCPCS: 80053; 85027; 86850; 86900; 86901

== ENCOUNTER → 2025-03-01 | Outpatient (CLI) | payer BC ==
[2025-03-01 14:02] VITALS: BP 153/84; PULSE 75; RESP 16; TEMP 98.7; BMI 51.7
--- NOTE | 2025-03-01 14:32 | P.BASOAP ---
Subjective Progress Note Date: 03/01/25 She wants the sleeve. She has already lost her weight. She has minimal reflux. No abdominal pain. She is doing well with protein shakes. Consent signed. Objective - Vital Signs Vital signs: Vital Signs Temp 98.7 F 03/01/25 13:59 Pulse 75 03/01/25 13:59 Resp 16 03/01/25 13:59 BP 153/84 03/01/25 13:59 Pulse Ox FiO2 Intake & Output 02/28/25 03/01/25 03/01/25 18:59 06:59 18:59 Weight 158.757 kg Assessment/Plan Plan: Date: 03/01/25 Initial Weight: 162.386 kg Initial BMI: 52.8 Current Weight: 158.757 kg Current BMI: 51.7 Type of Surgery: Total Volume in Band: Previous Volume: Volume Removed: Volume Added: Band Size:
== END ==
LOC: BARWHC3 13:40
PROVIDERS: ATTEND Surgery Plastic and Reconstructive Surgery
DX: E66.01 Morbid (severe) obesity due to excess calories (principal); F12.90 Cannabis use, unspecified, uncomplicated; Z88.8 Allergy status to other drugs, medicaments and biological substances; Z68.43 Body mass index [BMI] 50.0-59.9, adult
CPT/HCPCS: 99211

== ENCOUNTER 2025-03-06 06:35 | Day surgery (SDC) | payer BC ==
[~2025-03-06 06:35] MED LIST changes: -ACETAMINOPHEN TAB 500 MG TAB PO PRN; -DEXAMETHASONE SOD PHOSPHATE 4 MG/ML 1 ML VIAL IV ONE; +ENOXAPARIN 40 MG/0.4 ML SYRINGE SQ PRN; -GABAPENTIN 300 MG CAP PO PRN; -HYDROmorphone 0.5 MG/0.5 ML SYRINGE IVP PRN; -LIDOCAINE 1% (10MG/ML) FOR IV START INTRADERMA PRN; -TRANEXAMIC 1,000 MG/100ML-NACL 1,000 MG in SALINE 1 100ML.BAG IVPB PRN; -ceFAZolin 3 GM in SODIUM CHLORIDE 0.9% 100 ML IVPB PRN
[2025-03-06] MEDS: IV FLUID CONTINUATION 1,000 ML IV ONE (07:04)
[2025-03-06] MEDS ORDERED: LIDOCAINE 1% (10MG/ML) FOR IV START INTRADERMA PRN (07:22)
[2025-03-06] MEDS: ALVIMOPAN 12 MG CAPSULE PO PRN (07:31)
[2025-03-06] MEDS: ACETAMINOPHEN TAB 500 MG TAB PO PRN (07:31)
--- NOTE | 2025-03-06 07:56 | P.GSHP ---
History of Present Illness H&P Date: 03/06/25 CHIEF COMPLAINT: Morbid obesity HISTORY OF PRESENT ILLNESS: Awilda Saunders is a 39-year-old female who comes with lifelong morbid obesity. As result of morbid obesity, she has hypertensive heart disease, polycystic ovarian syndrome, osteoarthritis of the hips and knees. She has completed medical supervised weight loss. She completed medical including cardiac assessment. She has completed psychological risk assessment. All surgical options were reviewed. She elected for sleeve gastrectomy. At height of 5 feet 9 inches, her ideal body weight is 168 pounds. She comes in 350 pounds. Her body mass index is 51.7. She is 182 pounds overweight. Her highest weight is 361 pounds, BMI 53.5. PAST MEDICAL HISTORY: 1. Morbid obesity due to excess calories 2. Body mass index of 53.5. 3. Osteoarthritis of the knees. 4. Osteoarthritis of the lower back. 5. Hypertensive heart disease. 6. Gastroesophageal reflux disease 7. Polycystic ovarian syndrome 8. Motion sickness 9. ADD with ADHD 10. Eczema PAST SURGICAL HISTORY: 1. Cholecystectomy 2. Back surgery HOME MEDICATIONS: ALLERGIES: SOCIAL HISTORY: Denies past tobacco use. Past marijuana use. FAMILY HISTORY: No family history of ulcerative colitis disease or Crohn's disease. Family history of morbid obesity. No lupus in the family. No reports of stomach or esophageal cancer. REVIEW OF ORGAN SYSTEMS: CONSTITUTIONAL: At height of 5 feet 9 inches, her ideal body weight is 168 pounds. She comes in 350 pounds. Her body mass index is 51.7. She is 182 pounds overweight. Her highest weight is 361 pounds, BMI 53.5. HEENT: Denies any active troubles with vision or hearing. ENDOCRINE: Denies diabetes. Denies hypothyroidism. CARDIOVASCULAR: Denies past reports of palpitations or heart attacks or chest pain. RESPIRATORY: Has daytime somnolence. GASTROINTESTINAL: Denies any bright red blood per rectum. Has gastroesophageal reflux disease. MUSCULOSKELETAL: Has lower back pain and joint pain. Has osteoarthritis of the knees. NEURO: No headaches. No seizure disorders. PSYCH: Denies depression. No suicidal ideation. RHEUMATOLOGIC: No lupus. No rheumatoid arthritis. HEMATOLOGIC: Denies any abnormal bleeding or bruising. No personal history of DVTs. SKIN: Has rash. No skin cancer. Has eczema. 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 BMI 38.0 GENERAL: Well-developed in no acute distress. HEENT: No scleral icterus. Extraocular movements grossly intact. Hears conversational speech. No nasal drainage. NECK: Supple without lymphadenopathy. CHEST: Nonlabored respirations with equal bilateral excursions. CARDIOVASCULAR: Regular rate and regular rhythm. Distal 2+ pulses. ABDOMEN: Obese, soft, nontender, nondistended. MUSCULOSKELETAL: No clubbing, cyanosis. NEURO: No focal or lateralizing signs. Cranial nerves 2 through 12 grossly within normal limits. PSYCH: Appropriate affect. Alert and oriented to person, place and time. SKIN: Good skin turgor. Well perfused. ASSESSMENT: 1. Morbid obesity due to excess calories 2. Body mass index of 53.5. 3. Osteoarthritis of the knees. 4. Osteoarthritis of the lower back. 5. Hypertensive heart disease. 6. Gastroesophageal reflux disease 7. Polycystic ovarian syndrome 8. Motion sickness 9. ADD with ADHD 10. Eczema PLAN: 1. Bariatric options between a sleeve, band and a Prisca-en-Y gastric bypass were reviewed in detail. The patient elected for a gastric sleeve. Robotic assisted approach described. 2. The [place] [facility] Data was also reviewed with benefits and risks as described. 3. An 8 page second-generation bariatric consent form was reviewed in detail including potential of bleeding, infection, leaks, adequate weight loss, nutritional deficiencies which the patient demonstrated understanding of the risks. 4. A 2 week high-protein low caloric 800 kcal diet described to address hepatomegaly. 5. Preoperative labs including complete metabolic panel and CBC with type and screen recommended. 6. DVT prophylaxis per [place] [facility]. 7. Antibiotic prophylaxis. 8. Inpatient hospitalization anticipated for more than 2 nights. 9. All questions and concerns were addressed with the patient. 10. She is at elevated risk for perioperative complications secondary to body mass index over 50. 11. Overall, patient has expressed understanding of bariatric care including postoperative diet and commitment of lifestyle. Patient should benefit from surgical intervention for correction of her morbid obesity. 12. Goal weight loss of 18 pounds, from 362 pounds to 344 pounds and the day of procedure advised Past Medical History Past Medical History: Osteoarthritis (OA), Skin Disorder Additional Past Medical History / Comment(s): Back pain, PCOS, varicose veins, "light heartburn", eczema. History of Any Multi-Drug Resistant Organisms: None Reported Past Surgical History: Back Surgery, Cholecystectomy, Orthopedic Surgery Additional Past Surgical History / Comment(s): Right knee surgeyr, left ankle surgey, aminectomy L3-L4. Past Anesthesia/Blood Transfusion Reactions: Motion Sickness, Postoperative Nausea & Vomiting (PONV) Additional Past Anesthesia/Blood Transfusion Reaction / Comment(s): no hx. transfusion Past Psychological History: ADD/ADHD Additional Psychological History / Comment(s): ADHD. Smoking Status: Never smoker Past Alcohol Use History: Rare Past Drug Use History: Marijuana Additional Drug Use History / Comment(s): Marijuana gummies occasionally - Past Family History Mother Family Medical History: No Reported History Father Family Medical History: Cancer Additional Family Medical History / Comment(s): Melanoma. Medications and Allergies Home Medications Medication Instructions Recorded Confirmed Type Ergocalciferol [Vitamin D2 (1250 50,000 unit PO SA 12/06/24 03/06/25 History Mcg = 34043 Iu)] Magnesium Citrate 125 mg PO DAILY 01/18/25 03/06/25 History Multivitamins, Thera [Multivitamin 1 tab PO DAILY 01/18/25 03/06/25 History (formulary)] Omeprazole [PriLOSEC] 40 mg PO DAILY #90 cap 01/18/25 03/06/25 Rx Allergies Allergy/AdvReac Type Severity Reaction Status Date / Time nirmatrelvir Allergy Anaphylaxis Verified 03/06/25 07:08 [From Paxlovid (EUA)] ritonavir Allergy Anaphylaxis Verified 03/06/25 07:08 [From Paxlovid (EUA)]
[2025-03-06] MEDS: ONDANSETRON 4 MG/2 ML VIAL IVP ONE (07:59)
[2025-03-06] MEDS: DEXAMETHASONE SOD PHOSPHATE 4 MG/ML 1 ML VIAL IV ONE (07:59)
[2025-03-06] MEDS: SCOPOLAMINE 1 MG/72 HR PATCH TRANSDERM STA (08:00)
[2025-03-06] MEDS: LACTATED RINGERS 1,000 ML IV SCH (08:00)
[2025-03-06] MEDS: PANTOPRAZOLE 40 MG/10 ML VIAL IVP STA (08:01)
[2025-03-06] MEDS: CHLORHEXIDINE GLUCONATE 15 ML CUP MUCOUS MEM STA (08:01)
[2025-03-06] MEDS: MIDAZOLAM 2 MG/2 ML VIAL IV PRN (08:05)
--- NOTE | 2025-03-06 08:18 | P.ANPRN ---
Procedure Note - Anesthesia - Nerve Block Performed Bilateral Erector Spinae Single Time Out Performed: Yes Date of Procedure: 03/06/25 Procedure Start Time: 08:05 Procedure Stop Time: 08:10 Location of Patient: PreOp Indication: Acute Post-Operative Pain, Analgesia, Requested by Surgeon Sedation Type: Sedate with meaningful contact maintained Preparation: Sterile Prep Position: Prone Catheter: None Needle Types: Pajunk Needle Gauge: 21 Ultrasound used to visualize needle placement: Yes Ultrasound used to observe medication spread: Yes Injectate: 0.5% Ropivacaine (see comment for volume) (Ropiv 20ml+[id number], Needle level-T8---- Each side) Blood Aspirated: No Pain Paresthesia on Injection Noted: No Resistance on Injection: Normal Image Stored and Saved: Yes Events: Uneventful and Well Tolerated
[2025-03-06] MEDS ORDERED: PHENYLEPHRINE-0.9% NACL SYG 1,000 MCG/10 ML SYRINGE ONE (08:57)
[2025-03-06] MEDS ORDERED: GLYCOPYRROLATE 0.2 MG/ML 2 ML VIAL ONE (08:57)
[2025-03-06] MEDS ORDERED: ROPIVACAINE 5 MG/ML 30 ML VIAL ONE (08:57)
[2025-03-06] MEDS ORDERED: HYDROmorphone (PF) 1 MG/ML ONE (08:57)
[2025-03-06] MEDS ORDERED: PROPOFOL 10 MG/ML 20 ML VIAL IV ONE (08:57)
[2025-03-06] MEDS ORDERED: ePHEDrine 50 MG/ML 1 ML VIAL ONE (08:57)
[2025-03-06] MEDS ORDERED: fentaNYL (PF) 50 MCG/ML 2 ML AMP ONE (08:57)
[2025-03-06] MEDS ORDERED: SUCCINYLCHOLINE CHLORIDE 200 MG/10 ML VIAL IV ONE (08:57)
[2025-03-06] MEDS ORDERED: DEXAMETHASONE SOD PHOSPHATE 4 MG/ML 1 ML VIAL ONE (08:57)
[2025-03-06] MEDS ORDERED: ROCURONIUM 10 MG/ML (5 ML VIAL) IV ONE (08:57)
[2025-03-06] MEDS ORDERED: LIDOCAINE 1% INJ 10MG/ML (20 ML MDV) ONE (08:57)
[2025-03-06] MEDS ORDERED: NEOSTIGMINE 1 MG/ML 10 ML VIAL ONE (08:57)
[2025-03-06] MEDS: LIDOCAINE 1%-EPI 1:100,000 20 ML VIAL SQ ONE (09:32)
[2025-03-06] MEDS: LACTATED RINGERS 1,000 ML IV ONE (10:41)
[2025-03-06] MEDS ORDERED: diphenhydrAMINE 50 MG/ML 1 ML VIAL IVP PRN (11:37)
[2025-03-06] MEDS ORDERED: NALOXONE 0.4 MG/ML 1 ML VIAL IV PRN ×2 (11:37→11:41)
[2025-03-06] MEDS: fentaNYL (PF) 50 MCG/ML 2 ML AMP IVP PRN (11:47)
--- NOTE | 2025-03-06 11:48 | P.OP ---
Date of Procedure: 03/06/25 Description of Procedure: SURGEON: JYOTI DELA CRUZ MD PREOPERATIVE DIAGNOSES: 1. Morbid obesity due to excess calories 2. Body mass index of 53.5. 3. Osteoarthritis of the knees. 4. Osteoarthritis of the lower back. 5. Hypertensive heart disease. 6. Gastroesophageal reflux disease 7. Polycystic ovarian syndrome 8. Motion sickness 9. ADD with ADHD 10. Eczema POSTOPERATIVE DIAGNOSES: 1. Morbid obesity due to excess calories 2. Body mass index of 53.5. 3. Osteoarthritis of the knees. 4. Osteoarthritis of the lower back. 5. Hypertensive heart disease. 6. Gastroesophageal reflux disease 7. Polycystic ovarian syndrome 8. Motion sickness 9. ADD with ADHD 10. Eczema 11. Fatty liver disease 12. Hepatomegaly OPERATION: 1. Robotic assisted daVinci Xi laparoscopic sleeve gastrectomy with 40-Austrian bougie, multiport. 2. Intraoperative esophagogastroduodenoscopy. ANESTHESIA: Gen. local anesthetic ESTIMATED BLOOD LOSS: 10 mL SPECIMENS REMOVED: Sleeve gastrectomy COMPLICATIONS: None. FINDINGS: 1. Negative intraoperative esophagogastrojejunoscopy leak test. 2. Mild hepatomegaly and no large hiatus hernia. 3. Total of 6 staplers used including 1 - 60 mm black robot adrien and 1 - 60 mm green, 4 - 60 mm blue robot loads used to create the gastric sleeve. 4. Sleeve gastrectomy, 30 x 4 cm INDICATIONS: Awilda Saunders is a 39-year-old female who comes with lifelong morbid obesity. As result of morbid obesity, she has hypertensive heart dis ease, polycystic ovarian syndrome, osteoarthritis of the hips and knees. She has completed medical supervised weight loss. She completed medical including cardiac assessment. She has completed psychological risk assessment. All surgical options were reviewed. She elected for sleeve gastrectomy. At height of 5 feet 9 inches, her ideal body weight is 168 pounds. Her highest weight is 361 pounds, BMI 53.5. Patient presented 342 pounds and achieve her expected weight loss down to 342 pounds, BMI 50.7. All surgical options for morbid obesity had been described using the [place] [facility]ariat[facility] collaborative comorbidity resolution including complication risk score. A second-generation bariatric consent form was described in detail including the possibility of protein malnutrition, leaks, gastric stricture, venous thrombosis, gastroesophageal reflux disease, need for further surgery for which she demonstrated understanding. Benefits and risks of the procedure were described at length. Informed consent was obtained. DESCRIPTION: The patient was brought into the operating room theater. Preoperatively she had received Lovenox subcutaneously for DVT prophylaxis. Additionally she had Peridex oral solution as an oral decontaminant. After general induction, the abdomen was prepped and draped in standard sterile fashion. An Ioban draping was placed along the abdomen. A robotic da Douglas Xi system was prepped and primed. At 15 cm from the xiphoid, proposed port sites were marked with indelible marker along the anterior axillary line bilaterally, mid axillary line bilaterally with each ports were marked 10 to 15 cm from each other. The robotic stapler port was marked for the right midclavicular line. A 5 mm 0 degrees laparoscopic trocar entry was performed along the left upper quadrant. The abdomen was insufflated to 15 mmHg pressure was tolerated well. Diagnostic laparoscopy demonstrated no injury to bowel, viscera, or mesentery. No evidence of large hiatus hernia was identified. The liver edge was slightly thickened due to mild hepatomegaly despite 2-week protein diet. A 8 mm port was placed along the left upper abdominal wall after exchanging the 5 mm port. A separate 8 mm port was placed along the left lateral abdominal wall. Please note that the ports were placed at least 20 cm away from the target anatomy. Care was taken to check each robotic arms were safely away from collision with the bed or the patient. At the epigastrium, a medium sized Sascha liver retractor was placed under direct visualization with the [employer] placed under the right shoulder of the patient. Next, 12-mm robot stapler port was placed along the right upper quadrant. The camera 8-mm port was maintained along the epigastrium. The patient was repositioned in reverse Trendelenburg position at 25-degrees after lowering the bed. The robot was docked along the left side of the patient. Using a grasper for arm 4, a vessel sealer for arm 3, including grasper for arm 1, the robotic system was docked and primed as described. Instruments were interchanged by the bankruptcy legal assistant for stapler loads. The camera was placed at 30- degrees down. I had sat at the console. The pylorus was identified and 6 cm proximally along the greater curvature of the stomach, the short gastrics were mobilized upwards to the angle of His using a vessel sealer. Hemostasis was excellent during this portion of the procedure. Next, the upper pole of the stomach was adherent to the left santos, which was gently dissected free using atraumatic grasper. I went to the head of the bed and placed 40-Austrian blunt bougie into the stomach. The bougie was readjusted by the nurse trace evidence technician. Robotic stapler black load 60 mm 1 followed by green 60 mm x 1, and blue 60 mm loads x 4 were used to create the sleeve. Initial firing was across the antrum of the stomach towards the angle of His. The staple line was linear without corkscrewing. The space from the angularis incisura of the sleeve was approximately 4 cm. I then went to the head of the bed to perform the intraoperative esophagogastroduodenoscopy leak test. The bougie was withdrawn. The upper pole of the stomach was bathed using normal saline solution. The scope was withdrawn with careful inspection along the staple line for which no leaks were found along the entire length. Additionally,the sleeve was completely hemostatic without any encroachment along the angularis incisura. Its topology was a soft "J". No stricture was encountered upon placement of the scope. The GI tract was desufflated. The patient tolerated this portion of the procedure well. The scope was completely withdrawn. The robot was undocked. I then rescrubbed into case, whereby the irrigation fluid was aspirated from the abdominal cavity. Tisseal fibrin sealant was placed along the entire staple length. Once dried the Sascha liver retractor was removed. Attention was now brought to removal of the specimen. The distal end of the sleeve gastrectomy specimen was brought out through the 12 mm port at the left upper quadrant. The specimen was gently removed en total. No contamination had occurred during this process. All instruments and pneumoperitoneum including irrigation fluid was removed from the abdominal cavity. The 12 mm port site was closed using 0-Vicryl and Rashid Fields and irrigated with diluted hydrogen peroxide. The final incisions were closed using subcuticular interrupted suture of 4-0 Monocryl. Exofin was applied to the skin once the skin had been cleansed. OptiFoam dressing was placed along the stomach extraction site. The sleeve specimen was measured and checked also for leaks which none were found. At the end of the procedure, needle, sponge, and instrument count was verified correct by the surgical assistant. The patient was taken to the postanesthesia care unit in stable condition. The patient had tolerated the procedure well. Intraoperative films and findings were reviewed with the patient's family.
[2025-03-06] MEDS: droPERidol 2.5 MG/ML VIAL IVP STA (11:59)
[2025-03-06] MEDS: METOPROLOL TARTRATE 5 MG/5 ML VIAL IVP STA (12:11)
[2025-03-06] MEDS: HYDROmorphone 0.5 MG/0.5 ML SYRINGE IVP PRN (12:36)
[2025-03-06] MEDS: hydrALAZINE HCL 20 MG/ML 1 ML VIAL IVP STA (12:51)
[2025-03-06] MEDS: ACETAMINOPHEN IV (For NPO) 1,000 MG in EMPTY BAG 1 BAG IVPB SCH (15:25)
[2025-03-06] MEDS: ALBUTEROL NEBULIZED 2.5 MG/3 ML INHALATION SCH (16:18)
[2025-03-06] MEDS: DEXAMETHASONE SOD PHOSPHATE 10 MG/ML 1 ML VIAL IVP ONE (17:05)
[2025-03-06] MEDS: SODIUM CHLORIDE 0.9% 1,000 ML IV SCH (17:05)
[2025-03-06] MEDS: HYDROmorphone 1 MG/ML 1 ML SYRINGE IVP PRN (17:16)
[2025-03-06] MEDS: fentaNYL PCA 500 MCG/50 ML BAG IV SCH (18:37)
[2025-03-06] MEDS: 0.9% NACL WITH KCL 20 MEQ/L 1,000 ML IV SCH (18:46)
[2025-03-06] MEDS: HYOSCYAMINE ORAL DROPS 1.875 MG/15 ML BOTTLE PO SCH (18:47)
[2025-03-06] MEDS: DEXAMETHASONE SOD PHOSPHATE 4 MG/ML 1 ML VIAL IVP SCH (18:47)
[2025-03-06] MEDS: SIMETHICONE 40 MG/0.6 ML DROPS 2,000 MG/30 ML BOTTLE PO SCH (18:47)
[2025-03-06] MEDS: MAGNESIUM SULFATE-D5W PMX 1 GM in DEXTROSE/WATER 1 100ML.BAG IVPB SCH (20:05)
[2025-03-06 22:38] VITALS: RESP 16
[2025-03-06] MEDS: PANTOPRAZOLE 40 MG/10 ML VIAL IV SCH (22:55)
[2025-03-06] MEDS ORDERED: PROCHLORPERAZINE INJ 10 MG/2 ML VIAL IVP PRN (23:16)
[2025-03-06] MEDS: ONDANSETRON 4 MG/2 ML VIAL IVP SCH (23:30)
[2025-03-06] MEDS: METOCLOPRAMIDE 5 MG/ML 2 ML VIAL IVP SCH (23:30)
[2025-03-07 08:31] LABS: Basophils # (A) 0.01 X 10*3/uL (0.00-0.10); Basophils % (A) 0.1 %; Eosinophils # (A) 0 X 10*3/uL (0.04-0.35); Eosinophils % (A) 0 %; HCT 41.9 % (37.2-46.3); HGB 13.5 g/dL (12.0-15.0); Immature Grans, Automated 0.70 %; Lymphocytes # (A) 1.18 X 10*3/uL (0.90-5.00); Lymphocytes % (A) 8.8 %; MCH 28.6 pg (27.0-32.0); MCHC 32.2 g/dL (32.0-37.0); MCV 88.8 FL (80.0-97.0); Monocytes # (A) 0.41 X 10*3/uL (0.20-1.00); Monocytes % (A) 3.1 %; NRBC Per 100 WBC 0 X 10*3/uL (0.00-0.01); Neutrophils # (A) 11.66 X 10*3/uL (1.80-7.70); Neutrophils % (A) 87.3 %; Platelet Count 324 X 10*3/uL (140-440); RBC 4.72 X 10*6/uL (4.10-5.20); RDW 13.8 % (11.5-14.5); WBC 13.35 X 10*3/uL (4.50-10.00)
[2025-03-07] MEDS: 0.9% NACL WITH KCL 20 MEQ/L 1,000 ML IV SCH (08:40)
[2025-03-07 08:47] LABS: Anion Gap 13.10 mmol/L (4.00-12.00); Blood Urea Nitrogen 6.5 mg/dL (9.0-27.0); Calcium 8.9 mg/dL (8.7-10.3); Carbon Dioxide 20.9 mmol/L (21.6-31.8); Chloride 103 mmol/L (96-109); Magnesium 2.3 mg/dL (1.5-2.4); Potassium 4.6 mmol/L (3.5-5.5); Sodium 137 mmol/L (135-145)
[2025-03-07] MEDS: ENOXAPARIN 40 MG/0.4 ML SYRINGE SQ SCH (09:41)
--- NOTE | 2025-03-07 09:42 | P.PN ---
Subjective Progress Note Date: 03/07/25 Has nausea from tight binder. Binder release. Likely discharge home today. Will address swallow study for next week. Fluids this week as outpatient. Objective - Vital Signs Vital signs: Vital Signs Temp 98.2 F 03/07/25 08:00 Pulse 76 03/07/25 08:13 Resp 16 03/07/25 08:00 BP 147/90 03/07/25 08:00 Pulse Ox 96 03/07/25 08:01 FiO2 Intake & Output 03/06/25 03/07/25 03/07/25 18:59 06:59 18:59 Intake Total 1999 2220 Output Total 1010 1000 13 Balance 990 1220 -13 Weight 155.8 kg Intake: IV 2000 Intake, IV Titration 1750 Amount 0.9% NaCl with KCl 20 Meq 1350 /l 1,000 ml @ 150 mls/hr IV .[id number] JORDAN Rx#: [id number] ACETAMINOPHEN IV (For NPO 200 ) 1,000 mg In Empty Bag 1 bag @ 400 mls/hr IVPB Q6HR JORDAN Rx#:[id number] Magnesium Sulfate-D5w Pmx 200 1 gm In Dextrose/Water 1 100ml.bag @ 100 mls/hr IVPB Q1H JORDAN Rx#: [id number] Oral 470 Output: Urine 1000 1000 Post Void Residual 13 Estimated Blood Loss 10 Other: # Voids 1 - Labs CBC & Chem 7: 03/07/25 03:17 03/07/25 03:17 Labs: Abnormal Lab Results - Last 24 Hours (Table) 03/07/25 03/07/25 Range/Units 03:17 03:17 WBC 13.35 H (4.50-10.00) X 10*3/uL MPV 9.3 L (9.5-12.2) FL Immature Gran # 0.09 H (0.00-0.04) X 10*3/uL Neutrophils # 11.66 H (1.80-7.70) X 10*3/uL Eosinophils # 0 L (0.04-0.35) X 10*3/uL Carbon Dioxide 20.9 L (21.6-31.8) mmol/L Anion Gap 13.10 H (4.00-12.00) mmol/L BUN 6.5 L (9.0-27.0) mg/dL Phosphorus 1.4 L (2.4-5.1) mg/dL
[2025-03-07 09:47] VITALS: BMI 50.7
[2025-03-07] MEDS: SODIUM PHOSPHATE 10 MMOL in SODIUM CHLORIDE 0.9% 250 ML IVPB SCH (12:19)
[2025-03-07 13:22] VITALS: BP 166/80; PULSE 65; TEMP 98.7
== END 2025-03-07 15:17 | disposition home or self-care (01) ==
LOC: OR 06:35 → 4SSUR 16:11 → OR 03-07 15:17
PROVIDERS: ATTEND Surgery Plastic and Reconstructive Surgery
DX: E66.01 Morbid (severe) obesity due to excess calories (principal); K76.0 Fatty (change of) liver, not elsewhere classified; E28.2 Polycystic ovarian syndrome; F12.90 Cannabis use, unspecified, uncomplicated; F90.9 Attention-deficit hyperactivity disorder, unspecified type; I11.9 Hypertensive heart disease without heart failure; K21.9 Gastro-esophageal reflux disease without esophagitis; L30.9 Dermatitis, unspecified; M17.0 Bilateral primary osteoarthritis of knee; M16.0 Bilateral primary osteoarthritis of hip; Z01.810 Encounter for preprocedural cardiovascular examination; Z68.43 Body mass index [BMI] 50.0-59.9, adult; Z83.49 Family history of other endocrine, nutritional and metabolic diseases; Z90.49 Acquired absence of other specified parts of digestive tract; Z88.3 Allergy status to other anti-infective agents; Z88.8 Allergy status to other drugs, medicaments and biological substances; Z79.899 Other long term (current) drug therapy
CPT/HCPCS: 94640 ×2; 94760; 97165; 81025; 64468; 80051; 82310; 82565; 83735; 84100; 84520; 85025; 88307; 43775; C1762; J2250; J0330; J0360; J1100 ×2; J2710; J2765 ×2; J0690; J2405 ×2; J2003; J1650; J3010 ×2; J1171 ×2; J3475; J2795; J0131 ×2; J2704; J2371; J1596; J2470 ×2; J1790; J0616

== ENCOUNTER → 2025-03-09 | Outpatient (CLI) | payer BC ==
[~2025-03-09] MED LIST changes: -ENOXAPARIN 40 MG/0.4 ML SYRINGE SQ PRN; -ONDANSETRON 4 MG/2 ML VIAL IVP PRN; +SODIUM CHLORIDE 0.9% 250 ML in EMPTY BAG 1 BAG IV PRN; +SODIUM CHLORIDE 0.9% 500 ML 500 ML in EMPTY BAG 1 BAG IV PRN
[2025-03-09 08:19] VITALS: TEMP 97.7
[2025-03-09] MEDS: SODIUM CHLORIDE 0.9% 1,000 ML IV NR (08:27)
[2025-03-09 10:19] VITALS: RESP 18
[2025-03-09 11:08] VITALS: BP 145/96; PULSE 66
== END ==
LOC: PROCWHC3 07:59
PROVIDERS: ATTEND Surgery Plastic and Reconstructive Surgery
DX: E86.0 Dehydration (principal)
CPT/HCPCS: 96360; 96361

== ENCOUNTER → 2025-03-14 | Outpatient (CLI) | payer BC ==
[2025-03-14 10:26] VITALS: BP 130/85; PULSE 85; RESP 16; TEMP 98.1
[2025-03-14] MEDS: SODIUM CHLORIDE 0.9% 2,000 ML IV NR (10:27)
== END ==
LOC: PROCWHC3 10:08
PROVIDERS: ATTEND Surgery Plastic and Reconstructive Surgery
DX: E86.0 Dehydration (principal); Z88.8 Allergy status to other drugs, medicaments and biological substances
CPT/HCPCS: 96360; 96361; 96365; 96366

== ENCOUNTER → 2025-03-15 | Outpatient (CLI) | payer BC ==
[~2025-03-15] MED LIST changes: +DEXAMETHASONE SOD PHOSPHATE 10 MG/ML 1 ML VIAL IM STA; -SODIUM CHLORIDE 0.9% 250 ML in EMPTY BAG 1 BAG IV PRN; -SODIUM CHLORIDE 0.9% 500 ML 500 ML in EMPTY BAG 1 BAG IV PRN
[2025-03-15 13:09] VITALS: BP 142/89; PULSE 94; RESP 16; TEMP 98.4; BMI 49.1
--- NOTE | 2025-03-16 09:18 | P.BASOAP ---
Subjective Progress Note Date: 03/15/25 Patient comes in with moderate rash along the abdomen. Recommend dexamethasone 10 mg IM shot this week including next week. Return to work anticipated for 2 weeks with restrictions. Will be off restrictions on 29 March Objective - Vital Signs Vital signs: Vital Signs Temp 98.4 F 03/15/25 12:57 Pulse 94 03/15/25 12:57 Resp 16 03/15/25 12:57 BP 142/89 03/15/25 12:57 Pulse Ox FiO2 Intake & Output 03/15/25 03/16/25 03/16/25 18:59 06:59 18:59 Weight 151.046 kg Assessment/Plan Plan: Date: 03/15/25 Initial Weight: 162.386 kg Initial BMI: 52.8 Current Weight: 151.046 kg Current BMI: 49.1 Type of Surgery: Total Volume in Band: Previous Volume: Volume Removed: Volume Added: Band Size:
== END ==
LOC: BARWHC3 11:59
PROVIDERS: ATTEND Surgery Plastic and Reconstructive Surgery
DX: E66.01 Morbid (severe) obesity due to excess calories (principal); F12.90 Cannabis use, unspecified, uncomplicated; Z71.3 Dietary counseling and surveillance; Z68.42 Body mass index [BMI] 45.0-49.9, adult; Z91.048 Other nonmedicinal substance allergy status; Z88.3 Allergy status to other anti-infective agents
CPT/HCPCS: 97802; 99211

== ENCOUNTER → 2025-03-15 | Outpatient (CLI) | payer BC ==
--- NOTE | 2025-03-15 12:56 | FL ---
Modified barium swallow. HISTORY: Dysphagia. Modified barium swallow was performed with the department of speech pathology. The patient was prese nted with various consistencies of barium. There is no evidence for aspiration or penetration. Full report is to follow from the department of speech pathology. Impression: Normal study. [facility], , 03/15/2025 12:53 PM
== END | disposition home or self-care (01) ==
LOC: RADFLMAIN 11:30
PROVIDERS: ATTEND Surgery Plastic and Reconstructive Surgery
DX: R13.10 Dysphagia, unspecified (principal)
CPT/HCPCS: 74220

== ENCOUNTER → 2025-03-15 | Outpatient (CLI) | payer BC ==
[2025-03-15] MEDS: DEXAMETHASONE SOD PHOSPHATE 10 MG/ML 1 ML VIAL IM NR (14:10)
[2025-03-15 14:18] VITALS: BP 142/89; PULSE 94; RESP 16; TEMP 98
== END ==
LOC: PROCWHC3 14:04
PROVIDERS: ATTEND Surgery Plastic and Reconstructive Surgery
DX: T78.40XA Allergy, unspecified, initial encounter (principal)
CPT/HCPCS: 96372; J1100